=== PATIENT | male | born 1945 | race African-American/Black ===

== ENCOUNTER 2017-07-20 09:54 | Inpatient (IN) | payer OTHER ==
[2017-07-20 10:13] VITALS: BMI 25.4
--- NOTE | 2017-07-20 10:18 | PDOC ---
History of Present Illness - General Stated Complaint: ASTHMA Time Seen by Provider: 07/20/17 10:00 - History of Present Illness Initial Comments: 07/20/17 10:13 71yo man with PMH of asthma who p/w c/o sob. He states he has been having dyspnea on exertion with the cold weather. He's not currently using any medication for his asthma. Denies any cough, chest pain, palpitations, or chest tightness. No fever, chills, dysuria, or abdominal pain. He is currently living at shelters. Former tobacco smoker, quit 1 month ago; former EtOH and polysubstance abuse. 07/20/17 12:24 Past History - Past Medical History Allergies/Adverse Reactions: Allergies Allergy/AdvReac Type Severity Reaction Status Date / Time No Known Drug Allergies Allergy Verified 07/20/17 10:13 STAWBERRY AdvReac Uncoded 07/20/17 10:13 Home Medications: Ambulatory Orders Budesonide/Formeterol Fumarate [SYMBICORT 80/4.5mcg -] 1 inh PO BID 10/24/13 Tiotropium Saline [Spiriva] 1 inh PO DAILY 10/24/13 Acetaminophen [Tylenol .Regular Strength -] 650 mg PO QID PRN #60 tablet Albuterol Sulfate Inhaler - [Ventolin HFA Inhaler -] 2 inh IH Q4H PRN #1 inh Folic Acid 0.8 mg PO DAILY #30 tablet 10/28/13 Guaifenesin Dm [Robitussin Dm -] 10 ml PO Q6H PRN #1 cup 10/28/13 Lisinopril [Prinivil] 40 mg PO DAILY #30 tablet 10/28/13 Mag Hydrox/Al Hydrox/Simeth [Mylanta Oral Suspension -] 30 ml PO Q6H PRN #1 cup 10/28/13 Montelukast Na [Singulair -] 10 mg PO HS #30 tablet 10/28/13 Multivitamin [Animal Chews] 1 each PO DAILY #30 tab.chew 10/28/13 Nicotine Patch [Nicoderm Patch -] 14 mg TD DAILY #30 patch 10/28/13 Prednisone [Deltasone -] 40 mg PO DAILY #8 tablet 10/28/13 Thiamine HCl [Vitamin B1 -] 100 mg PO HS #30 tablet 10/28/13 Anemia: No Asthma: Yes (uses albuterol) Cancer: No Cardiac Disorders: No CVA: No COPD: No CHF: No Dementia: No Diabetes: No GI Disorders: No Disorders: No HTN: Yes (no meds presently.) Hypercholesterolemia: No Kidney Stones: No Liver Disease: No Seizures: No Thyroid Disease: No - Suicide/Smoking/Psychosocial Hx Smoking History: Current every day smoker Have you smoked in the past 12 months: Yes Number of Cigarettes Smoked Daily: 6 'Breaking Loose' booklet given: 10/24/13 (give on floor) Hx Alcohol Use: No Hx Substance Use Treatment: No *Physical Exam - Physical Exam General Appearance: Yes: Appropriately Dressed, Thin, Other (completing full sentences w/o dyspnea). No: Apparent Distress HEENT: positive: Normal ENT Inspection Neck: positive: Supple Respiratory/Chest: positive: Wheezing (expiratory wheezing). negative: Accessory Muscle Use Vascular Pulses: Dorsalis-Pedis (R): 2+, Doralis-Pedis (L): 2+ Gastrointestinal/Abdominal: positive: Flat, Soft. negative: Tender Extremity: positive: Normal Inspection, Swelling. negative: Pedal Edema, Calf Tenderness Neurologic: positive: Fully Oriented, Alert ED Treatment Course - LABORATORY CBC & Chemistry Diagram: 07/20/17 11:41 07/20/17 11:41 Medical Decision Making - Medical Decision Making 07/20/17 10:18 71yo man presenting with sob and physical exam notable for expiratory wheezing. Patient's vital signs are stable and he is satting at 94% on RA. Will do CXR PA/ Lat and basic labs. Will treat with 60mg Prednisone and duo nebs. 07/20/17 12:21 CXR revealed no focal consolidations or pleural effusion, which decreases my suspicion for PNA or infectious process. 07/20/17 14:15 Labs reassuring. No leukocytosis or electrolyte imbalance identified. Expiratory wheezes still noted on exam. Will order additional nebs and reassess. 07/20/17 15:07 Patient continues to have expiratory wheezing. Will order 2mg Magnesium and 3rd duo neb. Will contact Hospitalists to observe for asthma exacerbation. *DC/Admit/Observation/Transfer Diagnosis at time of Disposition: Asthma with acute exacerbation - Discharge Dispostion Condition at time of disposition: Stable Admit: Yes - Referrals - Patient Instructions Printed Discharge Instructions: DI for Asthma -- Adult - Post Discharge Activity
[2017-07-20] MEDS ORDERED: ALBUTEROL SO4 2.5/IPRATROPIUM 0.5 INH SOL 3 ML VIAL.NEB. NEB ONE ×2 (10:23→15:07)
[2017-07-20] MEDS ORDERED: predniSONE 20 MG TABLET (UD) PO ONE (10:25)
--- NOTE | 2017-07-20 10:26 | PDOC ---
Attending Attestation - Resident Resident Name: Lisa Liz - ED Attending Attestation I have performed the following: I have examined & evaluated the patient, The case was reviewed & discussed with the resident, I agree w/resident's findings & plan, Exceptions are as noted - HPI HPI: 07/20/17 10:22 71yo M hx PSA (etoh/cocaine), smoker, asthma p/w SOB for 2 weeks. PT reports sxs worse with cold weather. Has no asthma medicine. Denies CP, fevers, chills, cough. Reports this feels like his asthma. Pt lives in a long term and states he used to have a nebulizer machine, but no longer has it. Denies headache, weakness, abd pain, LE edema. - Physicial Exam PE: 07/20/17 10:25 GENERAL: Awake, alert, and fully oriented, in no acute distress HEAD: No signs of trauma EYES: PERRLA, EOMI, sclera anicteric, conjunctiva clear ENT: Auricles normal inspection, hearing grossly normal, nares patent, oropharynx clear without exudates. Moist mucosa NECK: Normal ROM, supple, no lymphadenopathy, JVD, or masses LUNGS: Breath sounds equal, clear to auscultation bilaterally. mild exp wheezing throughout, and no crackles HEART: Regular rate and rhythm, normal S1 and S2, no murmurs, rubs or gallops ABDOMEN: Soft, nontender, normoactive bowel sounds. No guarding, no rebound. No masses EXTREMITIES: Normal range of motion, no edema. No clubbing or cyanosis. No cords, erythema, or tenderness NEUROLOGICAL: Normal speech, cranial nerves intact, negative pronator drift, 5/ 5 strength in all 4 extremities, normal sensation to light touch in all 4 extremities, normal cerebellar exam, normal gait, normal reflexes and tone SKIN: Warm, Dry, normal turgor, no rashes or lesions noted. - Medical Decision Making 07/20/17 10:26 71-year-old male with a history of asthma presents with asthma exacerbation. Vitals are unremarkable. Exam with mild wheezing however patient's satting 100% on room air. Will treat with nebs and steroids and reassess. 07/20/17 13:27 Pt continues to have wheezing and feel SOB despite 2 rounds of nebs. Will admit for likely asthma/COPD exacerbation.
[2017-07-20] MEDS ORDERED: predniSONE 20 MG TABLET (UD) ONE (10:30)
[2017-07-20 11:52] LABS: BASO % 1.2 % (0-2.0); EOS % 3.6 % (0-4.5); HEMATOCRIT 41.5 % (35.4-49); HEMOGLOBIN 13.7 GM/dL (11.7-16.9); LYMPH % 17.3 % (8-40); MCH 27.4 pg (25.7-33.7); MEAN CELL VOLUME 83.1 fl (80-96); MEAN PLT VOLUME 8.7 fl (7.5-11.1); MONO % 16.7 % (3.8-10.2); NEUT % 61.2 % (42.8-82.8); PLATELET COUNT 213 K/MM3 (134-434); RDW 14.1 % (11.9-15.9); WHITE BLOOD COUNT 4.6 K/mm3 (4.0-10.0)
[2017-07-20 12:21] LABS: ALBUMIN 3.2 g/dl (3.4-5.0); ANION GAP 9 (8-16); BILIRUBIN,TOTAL 0.6 mg/dL (0.2-1.0); BLOOD UREA NITROGEN 17 mg/dL (7-18); CALCIUM 8.8 mg/dL (8.5-10.1); CHLORIDE 99 mmol/L (98-107); CO2 32 mmol/L (21-32); CREATININE 1.4 mg/dL (0.7-1.3); GLUCOSE,RANDOM 68 mg/dL (74-106); POTASSIUM 4.3 mmol/L (3.5-5.1); SGOT/AST 30 U/L (15-37); SGPT/ALT 24 U/L (12-78); SODIUM 140 mmol/L (136-145); TOT PROT 6.5 g/dl (6.4-8.2)
[2017-07-20 12:22] LABS: ALK PHOS 70 U/L (45-117)
[2017-07-20] MEDS ORDERED: ALBUTEROL SO4 0.5 % INH SOLN 2.5 MG/0.5 ML VIAL.NEB. NEB ONE (13:59)
[2017-07-20] MEDS ORDERED: ALBUTEROL SO4 0.083% IH SOL 2.5 MG/3 ML VIAL.NEB. NEB ONE (14:47)
[2017-07-20] MEDS ORDERED: MAGNESIUM SULF 50% (8.12 MEQ/2 ML-1 GM VIAL) IVPB ONE (15:06)
[2017-07-20] MEDS ORDERED: MAGNESIUM SULF 50% (8.12 MEQ/2 ML-1 GM VIAL) ONE (15:15)
--- NOTE | 2017-07-20 15:56 | HP ---
CHIEF COMPLAINT: PCP: HISTORY OF PRESENT ILLNESS: Patient is a 71 year old male with a significant past medical history of asthma since childhood, alcohol/cocaine abuse (denies current use) and cigarette smoker (quit 1 month ago). He presented to the ED with shortness of breath and wheezing. As per patient, he has been having dyspnea on exertion with the cold weather. He is on no medications for asthma currently. He denies any chest pain, palpitations or chest tightness. Denies any fever or chills. He admits to former ETOH abuse and polysubstance abuse but denies any current use. He also states that he is currently homeless and often sleeps in shelters or at his daughter's home. Daughters name is Ivonne and her phone no. is [phone] and patient granted permission to speak to her and give her an update on his status. ER course was notable for: (1) Prednisone 60mg and duonebs (2) Magnesium 2 grams (3) Chest xray: no focal consolidations or pleural effusion (4) expiratory wheezing after prednisone, duonebs and mag infusion (5) Creatinine 1.4 Recent Travel: denies PAST MEDICAL HISTORY: asthma since childhood, alcohol/cocaine abuse (denies current use) and cigarette smoker (quit 1 month ago) PAST SURGICAL HISTORY: Social History: Smoking: quit 1 month ago Alcohol: hx of etoh abuse, denies current use Drugs: hx of drug use 1 yr ago, denies current us Family History: Allergies No Known Drug Allergies Allergy (Verified 07/20/17 10:13) STAWBERRY Adverse Reaction (Uncoded 07/20/17 10:13) HOME MEDICATIONS: Home Medications Medication Instructions Recorded Budesonide/Formeterol Fumarate 1 inh PO BID 10/24/13 [SYMBICORT 80/4.5mcg -] Tiotropium Levan [Spiriva] 1 inh PO DAILY 10/24/13 Acetaminophen [Tylenol .Regular 650 mg PO QID PRN #60 tablet 10/28/13 Strength -] Albuterol Sulfate Inhaler - 2 inh IH Q4H PRN #1 inh 10/28/13 [Ventolin HFA Inhaler -] Folic Acid 0.8 mg PO DAILY #30 tablet 10/28/13 Guaifenesin Dm [Robitussin Dm -] 10 ml PO Q6H PRN #1 cup 10/28/13 Lisinopril [Prinivil] 40 mg PO DAILY #30 tablet 10/28/13 Mag Hydrox/Al Hydrox/Simeth 30 ml PO Q6H PRN #1 cup 10/28/13 [Mylanta Oral Suspension -] Montelukast Na [Singulair -] 10 mg PO HS #30 tablet 10/28/13 Multivitamin [Animal Chews] 1 each PO DAILY #30 tab.chew 10/28/13 Nicotine Patch [Nicoderm Patch -] 14 mg TD DAILY #30 patch 10/28/13 Prednisone [Deltasone -] 40 mg PO DAILY #8 tablet 10/28/13 Thiamine HCl [Vitamin B1 -] 100 mg PO HS #30 tablet 10/28/13 REVIEW OF SYSTEMS CONSTITUTIONAL: Absent: fever, chills, diaphoresis, generalized weakness, malaise, loss of appetite, weight change HEENT: Absent: rhinorrhea, nasal congestion, throat pain, throat swelling, difficulty swallowing, mouth swelling, ear pain, eye pain, visual changes CARDIOVASCULAR: Absent: chest pain, syncope, palpitations, irregular heart rate, lightheadedness , peripheral edema RESPIRATORY: Absent: hemoptysis GASTROINTESTINAL: Absent: abdominal pain, abdominal distension, nausea, vomiting, diarrhea, constipation, melena, hematochezia GENITOURINARY: Absent: dysuria, frequency, urgency, hesitancy, hematuria, flank pain, genital pain MUSCULOSKELETAL: Absent: myalgia, arthralgia, joint swelling, back pain, neck pain SKIN: Absent: rash, itching, pallor HEMATOLOGIC/IMMUNOLOGIC: Absent: easy bleeding, easy bruising, lymphadenopathy, frequent infections ENDOCRINE: Absent: unexplained weight gain, unexplained weight loss, heat intolerance, cold intolerance NEUROLOGIC: Absent: headache, focal weakness or paresthesias, dizziness, unsteady gait, seizure, mental status changes, bladder or bowel incontinence PSYCHIATRIC: Absent: anxiety, depression, suicidal or homicidal ideation, hallucinations. PHYSICAL EXAMINATION Vital Signs - 24 hr 07/20/17 07/20/17 10:00 14:59 Temperature 98.4 F 98.4 F Pulse Rate 88 Pulse Rate [ 88 Left Radial] Respiratory 24 22 Rate Blood Pressure 132/90 Blood Pressure 140/70 [Right Arm] O2 Sat by Pulse 100 100 Oximetry (%) GENERAL: Awake, alert, and fully oriented, in no acute distress. HEAD: Normal with no signs of trauma. EYES: Pupils equal, round and reactive to light, extraocular movements intact, sclera anicteric, conjunctiva clear. No lid lag. EARS, NOSE, THROAT: Ears normal, nares patent, oropharynx clear without exudates. Moist mucous membranes. NECK: Normal range of motion, supple without lymphadenopathy, JVD, or masses. LUNGS: Breath sounds equal, clear to auscultation bilaterally. No wheezes, and no crackles. No accessory muscle use. HEART: scattered expiratory wheezing throughout all lung [place], tolerating room air ABDOMEN: Soft, nontender, not distended, normoactive bowel sounds, no guarding, no rebound, no masses. No hepatomegaly or splenomegaly. MUSCULOSKELETAL: Normal range of motion at all joints. No bony deformities or tenderness. No CVA tenderness. UPPER EXTREMITIES: No peripheral edema. LOWER EXTREMITIES: No peripheral edema. NEUROLOGICAL: Normal speech. Normal gait. PSYCHIATRIC: Cooperative. Good eye contact. Appropriate mood and affect. SKIN: Warm, dry, normal turgor, no rashes or lesions noted, normal capillary refill. Laboratory Results - last 24 hr 07/20/17 07/20/17 11:41 11:41 WBC 4.6 D RBC 5.00 D Hgb 13.7 Hct 41.5 MCV 83.1 MCH 27.4 D MCHC 33.0 RDW 14.1 Plt Count 213 MPV 8.7 Neutrophils % 61.2 D Lymphocytes % 17.3 D Monocytes % 16.7 H D Eosinophils % 3.6 D Basophils % 1.2 D Sodium 140 Potassium 4.3 Chloride 99 Carbon Dioxide 32 Anion Gap 9 BUN 17 Creatinine 1.4 H Creat Clearance w eGFR 50.25 Random Glucose 68 L D Calcium 8.8 Total Bilirubin 0.6 D AST 30 D ALT 24 D Alkaline Phosphatase 70 Total Protein 6.5 Albumin 3.2 L ASSESSMENT/PLAN: Patient is a 71 year old male with a significant past medical history of asthma since childhood, alcohol/cocaine abuse (denies current use) and cigarette smoker (quit 1 month ago). He presented to the ED with shortness of breath and wheezing. As per patient, he has been having dyspnea on exertion with the cold weather. He is on no medications for asthma currently. He denies any chest pain, palpitations or chest tightness. Denies any fever or chills. He admits to former ETOH abuse and polysubstance abuse but denies any current use. He also states that he is currently homeless and often sleeps in shelters or at his daughter's home. Daughters name is Ivonne and her phone no. is [phone] and patient granted permission to speak to her and give her an update on his status. Pulmonary: Asthma exacerbation, acute Shortness of breath x 2 weeks Treated in ER with PO solumendrol, duonebs and still had wheezing Now under observation for continued wheezing, will start on solumedrol 40mg q8 and scheduled duonebs and assess in am. Convert to PO once cleared by pulmonary Has no asthma medications, lives in shelters, currently homeless Labs unremarkable Tolerating room air, supplement as needed Pulmonary consulted Renal: Mild ANGEL Hydrate with NS x 1 liter labs in a.m. F.E.N. Fluids: gentle hydration x 1 liter @ 50cc /hr Electrolytes: monitor in a.m. Nutrition: regular diet Prophylaxis: GI: Protonix DVT: ambulatory LOS < 48 hrs Disposition. observation, d/c in a.m. once breathing has improved and patient is no longer wheezing.
[2017-07-20] MEDS ORDERED: PANTOPRAZOLE 40 MG TABLET (FP) ONE (16:08)
[2017-07-20] MEDS: PANTOPRAZOLE 40 MG TABLET (FP) PO SCH (16:11)
[2017-07-20] MEDS ORDERED: SODIUM CHLORIDE 1,000 ML IV SCH (16:30)
[2017-07-20] MEDS ORDERED: FLU VACCINE QUAD 60 MCG/0.5 ML (MDV 17-18) IM ONE (18:01)
[2017-07-20] MEDS ORDERED: PNEUMOC 13-VAL CONJ-DIP CRM/PF 0.5 ML DISP.SYRIN IM ONE (18:01)
[2017-07-20] MEDS: methylPREDNISolone NA SUCC 40 MG/1 ML VIAL IVPUSH SCH (18:30)
[2017-07-20] MEDS: ALBUTEROL SO4 2.5/IPRATROPIUM 0.5 INH SOL 3 ML VIAL.NEB. NEB SCH ×2 (18:55→23:41)
[2017-07-21] MEDS: methylPREDNISolone NA SUCC 40 MG/1 ML VIAL IVPUSH SCH ×3 (01:33→18:51)
[2017-07-21] MEDS: ALBUTEROL SO4 2.5/IPRATROPIUM 0.5 INH SOL 3 ML VIAL.NEB. NEB SCH ×4 (06:12→23:41)
[2017-07-21] MEDS: PANTOPRAZOLE 40 MG TABLET (FP) PO SCH (09:02)
[2017-07-21 09:12] LABS: HEMATOCRIT 39.7 % (35.4-49); HEMOGLOBIN 13.4 GM/dL (11.7-16.9); MCH 27.7 pg (25.7-33.7); MCHC 33.8 g/dl (32.0-35.9); MEAN CELL VOLUME 81.9 fl (80-96); MEAN PLT VOLUME 8.8 fl (7.5-11.1); PLATELET COUNT 225 K/MM3 (134-434); RBC 4.85 M/mm3 (4.00-5.60); RDW 14.6 % (11.9-15.9); WHITE BLOOD COUNT 5.5 K/mm3 (4.0-10.0)
[2017-07-21 09:30] LABS: CHLORIDE 102 mmol/L (98-107); POTASSIUM 4.7 mmol/L (3.5-5.1); SODIUM 137 mmol/L (136-145)
[2017-07-21 09:38] LABS: ALBUMIN 3.3 g/dl (3.4-5.0); ALK PHOS 70 U/L (45-117); ANION GAP 10 (8-16); BILIRUBIN,TOTAL 0.4 mg/dL (0.2-1.0); BLOOD UREA NITROGEN 17 mg/dL (7-18); CALCIUM 9.3 mg/dL (8.5-10.1); CO2 25 mmol/L (21-32); CREATININE 1.3 mg/dL (0.7-1.3); GLUCOSE,RANDOM 132 mg/dL (74-106); MAGNESIUM 2.6 mg/dL (1.8-2.4); SGOT/AST 23 U/L (15-37); SGPT/ALT 24 U/L (12-78); TOT PROT 6.5 g/dl (6.4-8.2)
[2017-07-21] MEDS ORDERED: ALBUTEROL SO4 2.5/IPRATROPIUM 0.5 INH SOL 3 ML VIAL.NEB. NEB ONE (10:30)
[2017-07-21] MEDS ORDERED: FLUTICASONE/SALMETEROL 100 MCG/50 MCG DISKUS IH SCH (11:00)
--- NOTE | 2017-07-21 11:58 | CON.PULM ---
Consult Consult Specialty:: PULMONARY Referred by:: MAX Reason for Consultation:: SOB/WHEEZE/ASTHMA - History of Present Illness Chief Complaint: COUGH/SOB/WHEEZE/ History of Present Illness: 71yo man with PMH of asthma who p/w c/o sob. He states he has been having dyspnea on exertion with the cold weather. He's not currently using any medication for his asthma. Denies any cough, chest pain, palpitations, or chest tightness. No fever, chills, dysuria, or abdominal pain. He is currently living at shelters. Former tobacco smoker, quit 1 month ago; former EtOH and polysubstance abuse. - History Source History Provided By: Patient, Medical Record Limitations to Obtaining History: No Limitations - Past Medical History TOBACCO WEIGHER: No: Alzheimer's Cardio/Vascular: No: AFIB Pulmonary: Yes: Asthma, COPD. No: O2 Dependent Gastrointestinal: No: Ascites Renal/: No: Renal Failure Heme/Onc: No: Anemia Psych: Yes: Addictions (alcohol) Endocrine: No: Diabetes Mellitus - Past Surgical History Past Surgical History: Yes: Hernia Repair - Alcohol/Substance Use Hx Alcohol Use: No History of Substance Use: reports: Cocaine, Marijuana - Smoking History Smoking history: Former smoker Have you smoked in the past 12 months: Yes Aproximately how many cigarettes per day: 6 If you are a former smoker, when did you quit?: 2 months ago - Social History Usual Living Arrangement: Alone ADL: Independent Place of : [facility] History of Recent Travel: No Home Medications - Allergies Allergies/Adverse Reactions: Allergies Allergy/AdvReac Type Severity Reaction Status Date / Time No Known Drug Allergies Allergy Verified 07/20/17 10:13 STAWBERRY AdvReac Uncoded 07/20/17 10:13 - Home Medications Home Medications: Ambulatory Orders Budesonide/Formeterol Fumarate [SYMBICORT 80/4.5mcg -] 1 inh PO BID 10/24/13 Tiotropium [place] [Spiriva] 1 inh PO DAILY 10/24/13 Acetaminophen [Tylenol .Regular Strength -] 650 mg PO QID PRN #60 tablet Albuterol Sulfate Inhaler - [Ventolin HFA Inhaler -] 2 inh IH Q4H PRN #1 inh Folic Acid 0.8 mg PO DAILY #30 tablet 10/28/13 Guaifenesin Dm [Robitussin Dm -] 10 ml PO Q6H PRN #1 cup 10/28/13 Lisinopril [Prinivil] 40 mg PO DAILY #30 tablet 10/28/13 Mag Hydrox/Al Hydrox/Simeth [Mylanta Oral Suspension -] 30 ml PO Q6H PRN #1 cup 10/28/13 Montelukast Na [Singulair -] 10 mg PO HS #30 tablet 10/28/13 Multivitamin [Animal Chews] 1 each PO DAILY #30 tab.chew 10/28/13 Nicotine Patch [Nicoderm Patch -] 14 mg TD DAILY #30 patch 10/28/13 Prednisone [Deltasone -] 40 mg PO DAILY #8 tablet 10/28/13 Thiamine HCl [Vitamin B1 -] 100 mg PO HS #30 tablet 10/28/13 Family Disease History - Family Disease History Family Disease History: Other: Brother ( of overdose) Review of Systems - Review of Systems Constitutional: reports: Fever Eyes: denies: Blurred Vision HENT: denies: Difficult Swallowing Neck: denies: Decreased ROM Cardiovascular: reports: Shortness of Breath. denies: Chest Pain Respiratory: reports: Cough, Exercise Intolerance, SOB on Exertion, Wheezing. denies: Hemoptysis, Orthopnea Gastrointestinal: denies: Abdominal Pain Genitourinary: denies: Burning Breasts: reports: No Symptoms Reported Musculoskeletal: reports: No Symptoms Integumentary: reports: No Symptoms Neurological: reports: No Symptoms Endocrine: reports: No Symptoms Physical Exam Vital Sings: Vital Signs Temperature 97.7 F 07/21/17 09:00 Pulse Rate 91 H 07/21/17 09:00 Respiratory Rate 18 07/21/17 09:00 Blood Pressure 101/69 07/21/17 09:00 O2 Sat by Pulse Oximetry (%) 95 07/21/17 06:00 Eyes: Yes: EOM Intact HENT: Yes: Normocephalic Neck: Yes: Trachea Midline Cardiovascular: Yes: Regular Rate and Rhythm Respiratory: Yes: Wheezes Gastrointestinal: Yes: Normal Bowel Sounds Extremities: Yes: WNL Labs: CBC, BMP 07/21/17 07:00 07/21/17 07:00 Imaging - Results Chest X-ray: Report Reviewed, Image Reviewed Problem List - Problems (1) Asthma with acute exacerbation Code(s): J45.901 - UNSPECIFIED ASTHMA WITH (ACUTE) EXACERBATION (2) COPD (chronic obstructive pulmonary disease) Code(s): J44.9 - CHRONIC OBSTRUCTIVE PULMONARY DISEASE, UNSPECIFIED (3) Chronic alcoholism Code(s): F10.20 - ALCOHOL DEPENDENCE, UNCOMPLICATED (4) Cocaine dependence Code(s): F14.20 - COCAINE DEPENDENCE, UNCOMPLICATED Assessment/Plan A/E B.ASTHMA LIKELY DUE TO ACUTE BRONCHITIS SUGGEST INFLU A/B SCREEN SPUTUM CULTURE/GRAM STAIN EVER/LABA/LAMA/ICS/SYSTEMIC STEROIDS/ANTIBIOTICS O2 PRN/DAILY PEAK FLOW Bean PINEDA MD
[2017-07-21] MEDS ORDERED: BUDESONIDE/FORMETEROL FUMARATE 80/4.5 mcg INHALER IH SCH (12:30)
--- NOTE | 2017-07-21 13:15 | RAPID ---
Physical Examination Vital Signs: Vital Signs Temperature 97.7 F 07/21/17 09:00 Pulse Rate 91 H 07/21/17 09:00 Respiratory Rate 18 07/21/17 09:00 Blood Pressure 101/69 07/21/17 09:00 O2 Sat by Pulse Oximetry (%) 95 07/21/17 06:00 Constitutional: Yes: Anxious Eyes: Yes: WNL HENT: Yes: WNL Neck: Yes: WNL Respiratory: Yes: Accessory Muscle Use Labs: CBC, BMP 07/21/17 07:00 07/21/17 07:00 Rapid Response - Rapid Response Assessment: ASSESSMENT/PLAN: Patient is a 71 year old male with a significant past medical history of asthma since childhood, alcohol/cocaine abuse (denies current use) and cigarette smoker (quit 1 month ago). He presented to the ED with shortness of breath and wheezing. As per patient, he has been having dyspnea on exertion with the cold weather. He is on no medications for asthma currently. He denies any chest pain, palpitations or chest tightness. Denies any fever or chills. He admits to former ETOH abuse and polysubstance abuse but denies any current use. He also states that he is currently homeless and often sleeps in shelters or at his daughter's home. Daughters name is Ivonne and her phone no. is [phone] and patient granted permission to speak to her and give her an update on his status. Pulmonary: Asthma exacerbation, acute Shortness of breath x 2 weeks Treated in ER with PO Prednisone, duonebs and still had wheezing, was also given magnesium iv Today had a rapid response called after patient attempted to ambulate to the bathroom, as per primary RN, patient became short of breath and was c/o of "chest tightness". His oxygen saturations dropped down to the 70s on 2 liters NC, once he was sitting, his oxygen levels increased back to the high 90s. will order repeat cbc, cmp, troponins trend, chest ct, extra dose of solumedrol 40mg x 1, duonebs are scheduled Started on Levaquin 500mg iv x 1 now then Levaquin 250mg daily Monitor respiratory status closely Pulmonary consulted and following Renal: Mild ANGEL, resolved stop ivf Disposition. full code.
[2017-07-21 13:58] LABS: HEMOGLOBIN 12.5 GM/dL (11.7-16.9)
[2017-07-21 14:11] LABS: BASO % 0.1 % (0-2.0); HEMATOCRIT 37.2 % (35.4-49); LYMPH % 4.3 % (8-40); MCH 27.9 pg (25.7-33.7); MCHC 33.7 g/dl (32.0-35.9); MEAN CELL VOLUME 82.7 fl (80-96); MEAN PLT VOLUME 8.8 fl (7.5-11.1); MONO % 4.9 % (3.8-10.2); NEUT % 90.7 % (42.8-82.8); PLATELET COUNT 202 K/MM3 (134-434); RBC 4.49 M/mm3 (4.00-5.60); RDW 14.3 % (11.9-15.9); WHITE BLOOD COUNT 8.8 K/mm3 (4.0-10.0)
[2017-07-21 14:15] LABS: ANION GAP 11 (8-16); BILIRUBIN,TOTAL 0.3 mg/dL (0.2-1.0); BLOOD UREA NITROGEN 17 mg/dL (7-18); CALCIUM 8.5 mg/dL (8.5-10.1); CHLORIDE 102 mmol/L (98-107); CO2 25 mmol/L (21-32); CREATININE 1.4 mg/dL (0.7-1.3); GLUCOSE,RANDOM 201 mg/dL (74-106); MAGNESIUM 2.5 mg/dL (1.8-2.4); SGOT/AST 20 U/L (15-37); SGPT/ALT 22 U/L (12-78); SODIUM 138 mmol/L (136-145)
[2017-07-21 14:16] LABS: ALK PHOS 63 U/L (45-117)
[2017-07-21] MEDS ORDERED: methylPREDNISolone NA SUCC 40 MG/1 ML VIAL IVPUSH ONE (14:30)
[2017-07-21] MEDS ORDERED: ALBUTEROL SO4 2.5/IPRATROPIUM 0.5 INH SOL 3 ML VIAL.NEB. NEB SCH (15:15)
[2017-07-21] MEDS ORDERED: PT OWN MED DRAWER 7, Y5N ONE (22:12)
[2017-07-21] MEDS: HEPARIN NA (PORCINE) 5,000 UNITS/ML 1ML VIAL SQ SCH (22:17)
[2017-07-21] MEDS: BUDESONIDE/FORMETEROL FUMARATE 80/4.5 mcg INHALER IH SCH (22:53)
[2017-07-22] MEDS: methylPREDNISolone NA SUCC 40 MG/1 ML VIAL IVPUSH SCH ×3 (02:26→18:58)
[2017-07-22] MEDS: ALBUTEROL SO4 2.5/IPRATROPIUM 0.5 INH SOL 3 ML VIAL.NEB. NEB SCH ×4 (06:35→23:32)
[2017-07-22 08:40] LABS: BASO % 0.2 % (0-2.0); HEMATOCRIT 38.8 % (35.4-49); HEMOGLOBIN 12.5 GM/dL (11.7-16.9); MCHC 32.3 g/dl (32.0-35.9); MEAN CELL VOLUME 83.7 fl (80-96); MEAN PLT VOLUME 8.7 fl (7.5-11.1); NEUT % 94.8 % (42.8-82.8); PLATELET COUNT 197 K/MM3 (134-434); RBC 4.64 M/mm3 (4.00-5.60); RDW 14.2 % (11.9-15.9); WHITE BLOOD COUNT 12.1 K/mm3 (4.0-10.0)
[2017-07-22] MEDS ORDERED: PT OWN MED DRAWER 7, Y5N ONE ×2 (08:57→21:03)
[2017-07-22] MEDS: PANTOPRAZOLE 40 MG TABLET (FP) PO SCH (09:02)
[2017-07-22] MEDS: HEPARIN NA (PORCINE) 5,000 UNITS/ML 1ML VIAL SQ SCH ×2 (09:03→21:07)
[2017-07-22] MEDS: BUDESONIDE/FORMETEROL FUMARATE 80/4.5 mcg INHALER IH SCH ×2 (09:04→21:08)
[2017-07-22 09:14] LABS: ANION GAP 9 (8-16); BLOOD UREA NITROGEN 16 mg/dL (7-18); CALCIUM 8.6 mg/dL (8.5-10.1); CHLORIDE 102 mmol/L (98-107); CO2 28 mmol/L (21-32); GLUCOSE,RANDOM 166 mg/dL (74-106); MAGNESIUM 2.6 mg/dL (1.8-2.4); POTASSIUM 4.6 mmol/L (3.5-5.1); SODIUM 139 mmol/L (136-145)
[2017-07-22 09:16] LABS: ALK PHOS 62 U/L (45-117); BILIRUBIN,TOTAL 0.3 mg/dL (0.2-1.0); CREATININE 1.4 mg/dL (0.7-1.3); SGOT/AST 18 U/L (15-37); SGPT/ALT 20 U/L (12-78); TOT PROT 6.2 g/dl (6.4-8.2)
--- NOTE | 2017-07-22 10:03 | PN ---
Physical Exam: SUBJECTIVE: Patient seen and examined at the bedside. He denies any chest pain or shortness of breath. Was a rapid response yesterday afternoon, no overnight events OBJECTIVE: For chest CT now hmga1c 6.7 with hyperglycemic, will start novolog ss Mild leukocytosis, no fevers, on Levaquin Vital Signs Period Temp Pulse Resp BP Sys/Vaz Pulse Ox Last 24 Hr 97.4 F-97.8 F 85-100 20-20 113-132/74-89 98 GENERAL: Awake, alert, and fully oriented, in no acute distress. HEAD: Normal with no signs of trauma. EYES: Pupils equal, round and reactive to light, extraocular movements intact, sclera anicteric, conjunctiva clear. No lid lag. EARS, NOSE, THROAT: Ears normal, nares patent, oropharynx clear without exudates. Moist mucous membranes. NECK: Normal range of motion, supple without lymphadenopathy, JVD, or masses. LUNGS: Breath sounds equal, clear to auscultation bilaterally. No wheezes, and no crackles. No accessory muscle use. HEART: scattered expiratory wheezing throughout all lung [place], tolerating room air ABDOMEN: Soft, nontender, not distended, normoactive bowel sounds, no guarding, no rebound, no masses. No hepatomegaly or splenomegaly. MUSCULOSKELETAL: Normal range of motion at all joints. No bony deformities or tenderness. No CVA tenderness. UPPER EXTREMITIES: No peripheral edema. LOWER EXTREMITIES: No peripheral edema. NEUROLOGICAL: Normal speech. Normal gait. PSYCHIATRIC: Cooperative. Good eye contact. Appropriate mood and affect. SKIN: Warm, dry, normal turgor, no rashes or lesions noted, normal capillary refill. Laboratory Results - last 24 hr 07/21/17 07/21/17 07/21/17 13:22 13:40 13:40 WBC 8.8 D RBC 4.49 Hgb 12.5 Hct 37.2 MCV 82.7 MCH 27.9 MCHC 33.7 RDW 14.3 Plt Count 202 MPV 8.8 Neutrophils % 90.7 H D Lymphocytes % 4.3 L D Monocytes % 4.9 Eosinophils % 0.0 D Basophils % 0.1 Sodium 138 Potassium 5.0 Chloride 102 Carbon Dioxide 25 Anion Gap 11 BUN 17 Creatinine 1.4 H Creat Clearance w eGFR 50.25 Random Glucose 201 H D Hemoglobin A1c % Calcium 8.5 Magnesium 2.5 H Total Bilirubin 0.3 D AST 20 ALT 22 Alkaline Phosphatase 63 Troponin I < 0.02 Total Protein 6.0 L Albumin 3.0 L 07/21/17 07/22/17 07/22/17 19:58 08:30 08:30 WBC 12.1 H D RBC 4.64 Hgb 12.5 Hct 38.8 MCV 83.7 MCH 27.0 MCHC 32.3 RDW 14.2 Plt Count 197 MPV 8.7 Neutrophils % 94.8 H Lymphocytes % 3.0 L D Monocytes % 2.0 L Eosinophils % 0.0 Basophils % 0.2 Sodium 139 Potassium 4.6 Chloride 102 Carbon Dioxide 28 Anion Gap 9 BUN 16 Creatinine 1.4 H Creat Clearance w eGFR 50.25 Random Glucose 166 H Hemoglobin A1c % Calcium 8.6 Magnesium 2.6 H Total Bilirubin 0.3 AST 18 ALT 20 Alkaline Phosphatase 62 Troponin I < 0.02 Total Protein 6.2 L Albumin 3.0 L 07/22/17 08:30 WBC RBC Hgb Hct MCV MCH MCHC RDW Plt Count MPV Neutrophils % Lymphocytes % Monocytes % Eosinophils % Basophils % Sodium Potassium Chloride Carbon Dioxide Anion Gap BUN Creatinine Creat Clearance w eGFR Random Glucose Hemoglobin A1c % 6.7 H Calcium Magnesium Total Bilirubin AST ALT Alkaline Phosphatase Troponin I Total Protein Albumin Active Medications Generic Name Dose Route Start Last Admin Trade Name Freq PRN Reason Stop Dose Admin Albuterol/Ipratropium 1 amp 07/21/17 15:23 07/22/17 06:35 Duoneb - NEB 1 amp QIDR ZULEIKA Administration Budesonide/Formoterol Fumarate 1 puff 07/21/17 22:00 07/22/17 09:04 Symbicort 80/4.5mcg - IH 1 puff BID ZULEIKA Administration Heparin Sodium (Porcine) 5,000 unit 07/21/17 22:00 07/22/17 09:03 Heparin - SQ 5,000 unit BID ZULEIKA Administration Levofloxacin 250 mg in 50 mls @ 50 mls/hr 07/22/17 10:00 07/22/17 09:01 Levaquin 250 Mg Premixed Ivpb - IVPB 50 mls/hr DAILY ZULEIKA Administration Methylprednisolone Sodium Succinate 60 mg 07/21/17 13:43 07/22/17 09:18 Solu-Medrol - IVPUSH 60 mg Q8H-IV ZULEIKA Administration Pantoprazole Sodium 40 mg 07/20/17 16:00 07/22/17 09:02 Protonix - PO 40 mg DAILY ZULEIKA Administration ASSESSMENT/PLAN: Patient is a 71 year old male with a significant past medical history of asthma since childhood, alcohol/cocaine abuse (denies current use) and cigarette smoker (quit 1 month ago). He presented to the ED with shortness of breath and wheezing. As per patient, he has been having dyspnea on exertion with the cold weather. He is on no medications for asthma currently. He denies any chest pain, palpitations or chest tightness. Denies any fever or chills. He admits to former ETOH abuse and polysubstance abuse but denies any current use. He also states that he is currently homeless and often sleeps in shelters or at his daughter's home. Daughters name is Ivonne and her phone no. is [phone] and patient granted permission to speak to her and give her an update on his status. Yesterday a rapid response was called after patient had an episode of shortness of breath and at that time his Soludmedrol was increased. His hospitalization satu Pulmonary: Asthma exacerbation, acute Shortness of breath x 2 weeks Initially treated in ER with PO solumendrol, duonebs and still had wheezing Solumedrol increased to 60mg push q 8 yesterday for increased wheezing Labs stable, vitals stable On 2 to 4 liters of nasal cannula supplement as needed Pulmonary consulted and following On Levaquin 250 mg IV daily Monitor respiratory status Hematology Leukocytosis, mild No fevers,vitals stable Can be due to IV steriods Renal: Mild ANGEL @ 1.4 Encourage PO intake labs in a.m. F.E.N. Fluids: Tolerating PO Electrolytes: monitor in a.m. Nutrition: regular diet Prophylaxis: GI: Protonix DVT: heparin BID Disposition.
[2017-07-22] MEDS: INSULIN SLIDING SCALE (NOVOLOG) 1 VIAL SQ SCH ×3 (11:51→21:07)
--- NOTE | 2017-07-22 12:58 | PN ---
Progress Note (short form) - Note Progress Note: Still with some RICARDO. Cough is essentially dry. No hemoptysis. CT: Mild emphysema / bronchiectasis / no masses,nodules, or infiltrates Intake & Output 07/19/17 07/20/17 07/21/17 07/22/17 23:59 23:59 23:59 23:59 Intake Total 600 1850 Output Total 2 Balance 598 1850 Weight 130 lb Last Vital Signs Temp Pulse Resp BP Pulse Ox 97.8 F 100 H 20 115/74 98 07/22/17 05:34 07/22/17 05:34 07/22/17 05:34 07/22/17 05:34 07/21/17 22:00 Active Medications Albuterol/Ipratropium (Duoneb -) 1 amp NEB QIDR [facility] Last Admin: 07/22/17 10:45 Dose: 1 amp Budesonide/Formoterol Fumarate (Symbicort 80/4.5mcg -) 1 puff IH BID [facility] Last Admin: 07/22/17 09:04 Dose: 1 puff Heparin Sodium (Porcine) (Heparin -) 5,000 unit SQ BID [facility] Last Admin: 07/22/17 09:03 Dose: 5,000 unit Levofloxacin (Levaquin 250 Mg Premixed Ivpb -) 250 mg in 50 mls @ 50 mls/hr IVPB DAILY [facility] Last Admin: 07/22/17 09:01 Dose: 50 mls/hr Insulin Aspart (Novolog Vial Sliding Scale -) 1 vial SQ ACHS [facility] PRN Reason: Protocol Last Admin: 07/22/17 11:51 Dose: 2 units Methylprednisolone Sodium Succinate (Solu-Medrol -) 60 mg IVPUSH Q8H-IV ZULEIKA Last Admin: 07/22/17 09:18 Dose: 60 mg Pantoprazole Sodium (Protonix -) 40 mg PO DAILY [facility] Last Admin: 07/22/17 09:02 Dose: 40 mg Eyes: Yes: EOM Intact HENT: Yes: Normocephalic Neck: Yes: Trachea Midline Cardiovascular: Yes: Regular Rate and Rhythm Respiratory: Yes: Mild scattered expiratory Wheeze Gastrointestinal: Yes: Normal Bowel Sounds Extremities: Yes: WNL Labs: Laboratory Results - last 24 hr 07/21/17 07/21/17 07/21/17 13:22 13:40 13:40 WBC 8.8 D RBC 4.49 Hgb 12.5 Hct 37.2 MCV 82.7 MCH 27.9 MCHC 33.7 RDW 14.3 Plt Count 202 MPV 8.8 Neutrophils % 90.7 H D Lymphocytes % 4.3 L D Monocytes % 4.9 Eosinophils % 0.0 D Basophils % 0.1 Sodium 138 Potassium 5.0 Chloride 102 Carbon Dioxide 25 Anion Gap 11 BUN 17 Creatinine 1.4 H Creat Clearance w eGFR 50.25 POC Glucometer Random Glucose 201 H D Hemoglobin A1c % Calcium 8.5 Magnesium 2.5 H Total Bilirubin 0.3 D AST 20 ALT 22 Alkaline Phosphatase 63 Troponin I < 0.02 Total Protein 6.0 L Albumin 3.0 L 07/21/17 07/22/17 07/22/17 19:58 08:30 08:30 WBC 12.1 H D RBC 4.64 Hgb 12.5 Hct 38.8 MCV 83.7 MCH 27.0 MCHC 32.3 RDW 14.2 Plt Count 197 MPV 8.7 Neutrophils % 94.8 H Lymphocytes % 3.0 L D Monocytes % 2.0 L Eosinophils % 0.0 Basophils % 0.2 Sodium 139 Potassium 4.6 Chloride 102 Carbon Dioxide 28 Anion Gap 9 BUN 16 Creatinine 1.4 H Creat Clearance w eGFR 50.25 POC Glucometer Random Glucose 166 H Hemoglobin A1c % Calcium 8.6 Magnesium 2.6 H Total Bilirubin 0.3 AST 18 ALT 20 Alkaline Phosphatase 62 Troponin I < 0.02 Total Protein 6.2 L Albumin 3.0 L 07/22/17 07/22/17 08:30 11:50 WBC RBC Hgb Hct MCV MCH MCHC RDW Plt Count MPV Neutrophils % Lymphocytes % Monocytes % Eosinophils % Basophils % Sodium Potassium Chloride Carbon Dioxide Anion Gap BUN Creatinine Creat Clearance w eGFR POC Glucometer 171 Random Glucose Hemoglobin A1c % 6.7 H Calcium Magnesium Total Bilirubin AST ALT Alkaline Phosphatase Troponin I Total Protein Albumin Problem List - Problems (1) Asthma with acute exacerbation Code(s): J45.901 - UNSPECIFIED ASTHMA WITH (ACUTE) EXACERBATION (2) COPD (chronic obstructive pulmonary disease) Code(s): J44.9 - CHRONIC OBSTRUCTIVE PULMONARY DISEASE, UNSPECIFIED (3) Chronic alcoholism Code(s): F10.20 - ALCOHOL DEPENDENCE, UNCOMPLICATED (4) Cocaine dependence Code(s): F14.20 - COCAINE DEPENDENCE, UNCOMPLICATED Assessment/Plan ACUTE BRONCHITIS PLAN: EVER/LABA/LAMA/ICS SYSTEMIC STEROIDS NOTED ANTIBIOTICS O2 PRN DAILY PEAK FLOW DR HAN
[2017-07-22] MEDS: OSELTAMIVIR PHOSPHATE 30 MG CAPSULE PO SCH (21:43)
[2017-07-23] MEDS: methylPREDNISolone NA SUCC 40 MG/1 ML VIAL IVPUSH SCH ×2 (01:24→10:04)
--- NOTE | 2017-07-23 01:33 | EKG ---
Test Reason : Blood Pressure : / mmHG Vent. Rate : 090 BPM Atrial Rate : 090 BPM P-R Int : 128 ms QRS Dur : 082 ms QT Int : 332 ms P-R-T Axes : 086 068 055 degrees QTc Int : 406 ms NORMAL SINUS RHYTHM NORMAL ECG WHEN COMPARED WITH ECG OF 27-OCT-2013 20:02, T WAVE VARIATION Confirmed by MALLY GAN MD ([id number]) on 07/23/2017 1:33:20 AM Referred By: Lyric GALAN Confirmed By:MALLY GAN MD
[2017-07-23] MEDS ORDERED: ALBUTEROL SO4 0.083% IH SOL 2.5 MG/3 ML VIAL.NEB. NEB PRN (03:56)
[2017-07-23] MEDS: ALBUTEROL SO4 2.5/IPRATROPIUM 0.5 INH SOL 3 ML VIAL.NEB. NEB SCH ×4 (05:57→23:13)
[2017-07-23] MEDS: INSULIN SLIDING SCALE (NOVOLOG) 1 VIAL SQ SCH ×4 (06:30→21:37)
[2017-07-23 07:25] LABS: BASO % 0.2 % (0-2.0); HEMATOCRIT 41.8 % (35.4-49); HEMOGLOBIN 13.5 GM/dL (11.7-16.9); MCH 27.2 pg (25.7-33.7); MCHC 32.4 g/dl (32.0-35.9); MEAN CELL VOLUME 84.1 fl (80-96); MEAN PLT VOLUME 8.9 fl (7.5-11.1); MONO % 3.2 % (3.8-10.2); NEUT % 92.6 % (42.8-82.8); PLATELET COUNT 229 K/MM3 (134-434); RBC 4.97 M/mm3 (4.00-5.60); RDW 14.4 % (11.9-15.9); WHITE BLOOD COUNT 13.8 K/mm3 (4.0-10.0)
[2017-07-23 07:32] LABS: ANION GAP 10 (8-16); BLOOD UREA NITROGEN 22 mg/dL (7-18); CHLORIDE 100 mmol/L (98-107); CO2 29 mmol/L (21-32); GLUCOSE,RANDOM 115 mg/dL (74-106); POTASSIUM 5.1 mmol/L (3.5-5.1); SODIUM 139 mmol/L (136-145)
[2017-07-23 07:38] LABS: ALBUMIN 3.3 g/dl (3.4-5.0); ALK PHOS 68 U/L (45-117); BILIRUBIN,TOTAL 0.4 mg/dL (0.2-1.0); CALCIUM 9.1 mg/dL (8.5-10.1); CREATININE 1.6 mg/dL (0.7-1.3); SGOT/AST 22 U/L (15-37); SGPT/ALT 25 U/L (12-78); TOT PROT 6.6 g/dl (6.4-8.2)
[2017-07-23] MEDS ORDERED: SODIUM CHLORIDE 1,000 ML IV SCH ×2 (09:00→15:47)
[2017-07-23] MEDS ORDERED: ASPIRIN COATED 81 MG TABLET.EC PO ONE (10:00)
--- NOTE | 2017-07-23 10:00 | PN ---
Physical Exam: SUBJECTIVE: Patient seen and examined at the bedside. shortness at breath at rest observed but patient states he feels fine. Heart rate 145 auscultated OBJECTIVE: Lungs more diminished bilaterally, wheezing anteriorly On 4 liters of oxygen @ 98% Chest xray pending, EKG shows afib with rvr 152, anterior infarct cannot be excluded + flu, started on Tamiflu overnight Vital Signs Period Temp Pulse Resp BP Sys/Vaz Pulse Ox Last 24 Hr 97.9 F-98.6 F 90-120 20-23 102-130/72-80 97 GENERAL: The patient is awake, alert, and fully oriented, in mild respiratory distress HEAD: Normal with no signs of trauma. EYES: PERRL, extraocular movements intact, sclera anicteric, conjunctiva clear. No ptosis. ENT: Ears normal, nares patent, oropharynx clear without exudates, moist mucous membranes. NECK: Trachea midline, full range of motion, supple. LUNGS: Diminished lungs posteriorly, anterior lung sounds with wheezing HEART: Regular rate and rhythm, S1, S2 without murmur, rub or gallop. ABDOMEN: Soft, nontender, nondistended, normoactive bowel sounds, no guarding, no rebound, no hepatosplenomegaly, no masses. EXTREMITIES: no edema. NEUROLOGICAL: Normal speech, gait not observed. PSYCH: Normal mood, normal affect. SKIN: Warm, dry, normal turgor, no rashes or lesions noted Laboratory Results - last 24 hr 07/22/17 07/22/17 07/22/17 11:50 16:46 21:07 WBC RBC Hgb Hct MCV MCH MCHC RDW Plt Count MPV Neutrophils % Lymphocytes % Monocytes % Eosinophils % Basophils % Sodium Potassium Chloride Carbon Dioxide Anion Gap BUN Creatinine Creat Clearance w eGFR POC Glucometer 171 112 144 Random Glucose Calcium Total Bilirubin AST ALT Alkaline Phosphatase Total Protein Albumin 07/23/17 07/23/17 07/23/17 06:25 06:25 06:26 WBC 13.8 H RBC 4.97 Hgb 13.5 Hct 41.8 MCV 84.1 MCH 27.2 MCHC 32.4 RDW 14.4 Plt Count 229 MPV 8.9 Neutrophils % 92.6 H Lymphocytes % 4.0 L D Monocytes % 3.2 L Eosinophils % 0.0 Basophils % 0.2 Sodium 139 Potassium 5.1 Chloride 100 Carbon Dioxide 29 Anion Gap 10 BUN 22 H D Creatinine 1.6 H Creat Clearance w eGFR 43.07 POC Glucometer 129 Random Glucose 115 H D Calcium 9.1 Total Bilirubin 0.4 D AST 22 D ALT 25 D Alkaline Phosphatase 68 Total Protein 6.6 Albumin 3.3 L Active Medications Generic Name Dose Route Start Last Admin Trade Name Freq PRN Reason Stop Dose Admin Albuterol Sulfate 1 amp 07/23/17 03:56 07/23/17 04:08 Ventolin 0.083% Nebulizer Soln - NEB 1 amp Q4H PRN Administration SHORT OF BREATH/WHEEZING Albuterol/Ipratropium 1 amp 07/21/17 15:23 07/23/17 05:57 Duoneb - NEB Not Given QIDR ZULEIKA Budesonide/Formoterol Fumarate 1 puff 07/21/17 22:00 07/22/17 21:08 Symbicort 80/4.5mcg - IH 1 puff BID ZULEIKA Administration Heparin Sodium (Porcine) 5,000 unit 07/21/17 22:00 07/22/17 21:07 Heparin - SQ 5,000 unit BID ZULEIKA Administration Levofloxacin 250 mg in 50 mls @ 50 mls/hr 07/22/17 10:00 07/22/17 09:01 Levaquin 250 Mg Premixed Ivpb - IVPB 50 mls/hr DAILY ZULEIKA Administration Sodium Chloride 1,000 mls @ 50 mls/hr 07/23/17 09:00 Normal Saline - IV 07/24/17 08:48 ASDIR ZULEIKA Insulin Aspart 1 vial 07/22/17 11:00 07/23/17 06:30 Novolog Vial Sliding Scale - SQ Not Given ACHS [facility] Protocol Methylprednisolone Sodium Succinate 60 mg 07/21/17 13:43 07/23/17 01:24 Solu-Medrol - IVPUSH 60 mg Q8H-IV ZULEIKA Administration Oseltamivir Phosphate 30 mg 07/22/17 22:00 07/22/17 21:43 Tamiflu - PO 07/27/17 21:59 30 mg BID ZULEIKA Administration Pantoprazole Sodium 40 mg 07/20/17 16:00 07/22/17 09:02 Protonix - PO 40 mg DAILY ZULEIKA Administration ASSESSMENT/PLAN: Patient is a 71 year old male with a significant past medical history of asthma since childhood, alcohol/cocaine abuse (denies current use) and cigarette smoker (quit 1 month ago). He presented to the ED with shortness of breath and wheezing. As per patient, he has been having dyspnea on exertion with the cold weather. He is on no medications for asthma currently. He denies any chest pain, palpitations or chest tightness. Denies any fever or chills. He admits to former ETOH abuse and polysubstance abuse but denies any current use. He also states that he is currently homeless and often sleeps in shelters or at his daughter's home. Today patient was noted to be more short of breath at rest, he also noted to have an elevated heart rate in the 140s. A chest xray revealed hyperinflated lungs, EKG shows new onset afib with RVR Imaging: EKG 07/21/2017 shows Normal sinus rhythm with no ST-T abnormality EKG 07/23/2017 Atrial fibrillation with RVR (07/23) Chest xray 07/23: hyperinflated lungs Pulmonary: Asthma exacerbation, acute Continues to be short at breath at rest, worsening today, on 4 liters supplemental oxygen sats are 98% On solumedrol 60mg q8 IV Chest xray reveals hyperinflated lungs Also noted to be tachy on exam in the 140s On Levaquin 250 mg IV daily Monitor respiratory status, titrate oxygen prn donebes scheduled QID + for influenza A, started on Tamiflu Cardiology New onset atrial fib vs. prosysmal afib as per EKG Patient denies chest pain Patient does not report any previous cardiac issues, however with his social status and poor medical followup, it is unclear Started on a heparin drip, ASA 81mg Monitor on telemonitoring, Cardizem TID for rate control Echocardiogram ordered Discussed with men's designer Hypertension, history Does not take home meds BP is at goal Endocrine hmga1c 6.7, hyperglycemic Started on Novolog sliding scale Metformin on discharge Hematology Leukocytosis, mild No fevers,vitals stable Can be due to IV steriods Renal: Mild ANGEL @ 1.6 on 1 liter IVF x 1, encourage PO intake labs in a.m. F.E.N. Fluids: NS IVF x 1, encourage PO intake Electrolytes: monitor in a.m. Nutrition: regular diet Prophylaxis: GI: Protonix DVT: heparin drip Disposition. Transfer to telemonitoring for new onset afib, full code. t Visit type - Emergency Visit Emergency Visit: Yes ED Registration Date: 07/20/17 Care time: The patient presented to the Emergency Department on the above date and was hospitalized for further evaluation of their emergent condition. - New Patient This patient is new to me today: No - Critical Care Critical Care patient: No - Discharge Referral Referred to [facility] Yes Physician Referral: Jay Jay Damian MD ([facility])
[2017-07-23] MEDS ORDERED: PT OWN MED DRAWER 7, Y5N ONE ×3 (10:01→21:43)
[2017-07-23] MEDS: OSELTAMIVIR PHOSPHATE 30 MG CAPSULE PO SCH ×2 (10:04→21:31)
[2017-07-23] MEDS: PANTOPRAZOLE 40 MG TABLET (FP) PO SCH (10:04)
[2017-07-23] MEDS: BUDESONIDE/FORMETEROL FUMARATE 80/4.5 mcg INHALER IH SCH (10:04)
[2017-07-23] MEDS: HEPARIN NA (PORCINE) 5,000 UNITS/ML 1ML VIAL SQ SCH (10:05)
[2017-07-23] MEDS ORDERED: ASPIRIN 325 MG ENTERIC COATED TABLET (FP) PO ONE (10:25)
[2017-07-23] MEDS ORDERED: HEPARIN NA (PORCINE) 5,000 UNITS/ML 1ML VIAL IVPUSH PRN ×6 (10:30→15:47)
[2017-07-23] MEDS ORDERED: METOPROLOL TARTRATE 25 MG TABLET (FP) PO ONE (10:50)
[2017-07-23] MEDS ORDERED: HEPARIN - 25,000 UNIT in SODIUM CHLORIDE 495 ML IV SCH (11:00)
--- NOTE | 2017-07-23 11:18 | CON.CARD ---
Consult Consult Specialty:: Cardiology Referred by:: Hospitalist Reason for Consultation:: Cardiac evaluation - History of Present Illness Chief Complaint: Shortness of breath History of Present Illness: Patient is a 71 year old male with history of bronchial asthma , currently homeless presents with complaints of shortness of breath. He denies chest pain or palpitations. He denies paroxysmal nocturnal dyspnea or orhtopnea. He denies fever or chills. He complains of nonproductive cough and currently is isolated for possible flu. He denies headache or lightheadedness. ECG reveals atrial fibrillation with RVR today. Initially when he came in, ECG revealed normal sinus rhythm. Cardiology consultation was called for further evaluation. He states history of hypertension, but currently he is normotensive. Hemoglobin A1C is elevated at 6.7, but he is not aware of any history of diabetes mellitus. He has history of polysubstance abuse with use of ETOH, cigarettes in the past and crack/cocaine and heroine one time a while ago. Last time he had used crack was about a month ago. - Past Medical History Cardio/Vascular: Yes: HTN Pulmonary: Yes: Asthma, COPD Psych: Yes: Addictions (alcohol) Endocrine: No: Diabetes Mellitus - Past Surgical History Past Surgical History: Yes: Hernia Repair - Alcohol/Substance Use Hx Alcohol Use: Yes (month ago) History of Substance Use: reports: Cocaine, Heroin (One time in the past), Marijuana - Smoking History Smoking history: Former smoker Have you smoked in the past 12 months: Yes Aproximately how many cigarettes per day: 6 If you are a former smoker, when did you quit?: 2 months ago - Social History Usual Living Arrangement: Alone ADL: Independent History of Recent Travel: No Home Medications - Allergies Allergies/Adverse Reactions: Allergies Allergy/AdvReac Type Severity Reaction Status Date / Time No Known Drug Allergies Allergy Verified 07/20/17 10:13 [place]Y AdvReac Uncoded 07/20/17 10:13 - Home Medications Home Medications: Ambulatory Orders Budesonide/Formeterol Fumarate [SYMBICORT 80/4.5mcg -] 1 inh PO BID 10/24/13 Tiotropium Waldo [Spiriva] 1 inh PO DAILY 10/24/13 Acetaminophen [Tylenol .Regular Strength -] 650 mg PO QID PRN #60 tablet Albuterol Sulfate Inhaler - [Ventolin HFA Inhaler -] 2 inh IH Q4H PRN #1 inh Folic Acid 0.8 mg PO DAILY #30 tablet 10/28/13 Guaifenesin Dm [Robitussin Dm -] 10 ml PO Q6H PRN #1 cup 10/28/13 Lisinopril [Prinivil] 40 mg PO DAILY #30 tablet 10/28/13 Mag Hydrox/Al Hydrox/Simeth [Mylanta Oral Suspension -] 30 ml PO Q6H PRN #1 cup 10/28/13 Montelukast Na [Singulair -] 10 mg PO HS #30 tablet 10/28/13 Multivitamin [Animal Chews] 1 each PO DAILY #30 tab.chew 10/28/13 Nicotine Patch [Nicoderm Patch -] 14 mg TD DAILY #30 patch 10/28/13 Prednisone [Deltasone -] 40 mg PO DAILY #8 tablet 10/28/13 Thiamine HCl [Vitamin B1 -] 100 mg PO HS #30 tablet 10/28/13 Family Disease History - Family Disease History Family Disease History: Other: Brother ( of overdose) Review of Systems - Review of Systems Constitutional: denies: Chills, Fever Cardiovascular: reports: Shortness of Breath. denies: Chest Pain, Palpitations Respiratory: reports: Cough, SOB. denies: Hemoptysis, Orthopnea, PND Gastrointestinal: denies: Abdominal Pain, Constipation, Diarrhea, Melena, Nausea , Rectal Bleeding, Vomiting Vital Signs: Vital Signs Temperature 98 F 07/23/17 09:41 Pulse Rate 120 H 07/23/17 09:41 Respiratory Rate 20 07/23/17 09:41 Blood Pressure 108/72 07/23/17 09:41 O2 Sat by Pulse Oximetry (%) 97 07/22/17 21:00 HENT: Yes: Atraumatic Neck: Yes: Supple Respiratory: Yes: Diminished, Wheezes (Expiratory) Gastrointestinal: Yes: Normal Bowel Sounds, Soft. No: Tenderness Cardiovascular: Yes: Tachycardia, Pulse Irregular JVD: No Carotid Bruit: No PMI: Non-Displaced Heart Sounds: Yes: S1, S2. No: Gallop Edema: No - Other Data Labs, Other Data: CBC, BMP 07/23/17 06:25 07/23/17 06:25 Laboratory Results - last 24 hr 1207/23/17 07/23/17 06:25 06:25 06:26 WBC 13.8 H RBC 4.97 Hgb 13.5 Hct 41.8 MCV 84.1 MCH 27.2 MCHC 32.4 RDW 14.4 Plt Count 229 MPV 8.9 Neutrophils % 92.6 H Lymphocytes % 4.0 L D Monocytes % 3.2 L Eosinophils % 0.0 Basophils % 0.2 Sodium 139 Potassium 5.1 Chloride 100 Carbon Dioxide 29 Anion Gap 10 BUN 22 H D Creatinine 1.6 H Creat Clearance w eGFR 43.07 POC Glucometer 129 Random Glucose 115 H D Calcium 9.1 Total Bilirubin 0.4 D AST 22 D ALT 25 D Alkaline Phosphatase 68 Total Protein 6.6 Albumin 3.3 L Normal sinus rhythm with no ST-T abnormality (07/21) Atrial fibrillation with RVR (07/23) Echo: Pending Imaging - Results Chest X-ray: Report Reviewed (Atelectasis) EKG: Report Reviewed Problem List - Problems (1) Atrial fibrillation Code(s): I48.91 - UNSPECIFIED ATRIAL FIBRILLATION Qualifiers: Atrial fibrillation type: paroxysmal Qualified Code(s): I48.0 - Paroxysmal atrial fibrillation (2) Asthma with acute exacerbation Code(s): J45.901 - UNSPECIFIED ASTHMA WITH (ACUTE) EXACERBATION Qualifiers: Asthma severity: mild Asthma persistence: intermittent Qualified Code(s) : J45.21 - Mild intermittent asthma with (acute) exacerbation (3) COPD (chronic obstructive pulmonary disease) Code(s): J44.9 - CHRONIC OBSTRUCTIVE PULMONARY DISEASE, UNSPECIFIED Qualifiers: COPD type: unspecified COPD Qualified Code(s): J44.9 - Chronic obstructive pulmonary disease, unspecified (4) Chronic alcoholism Code(s): F10.20 - ALCOHOL DEPENDENCE, UNCOMPLICATED Qualifiers: Substance use status: uncomplicated Qualified Code(s): F10.20 - Alcohol dependence, uncomplicated (5) Cocaine dependence Code(s): F14.20 - COCAINE DEPENDENCE, UNCOMPLICATED Qualifiers: Substance use status: uncomplicated Qualified Code(s): F14.20 - Cocaine dependence, uncomplicated (6) Essential hypertension Code(s): I10 - ESSENTIAL (PRIMARY) HYPERTENSION Assessment/Plan 1. New onset atrial fibrillation with RVR, [id number] score probably around 1 or 2 2. History of hypertension - currently normotensive 3. Elevated Hemoglobin A1C suggests diabetes mellitus 4. Bronchial asthma with expiratory wheeze 5. Polysubstance abuse including ETOH and cocaine 6. Shortness of breath with cough c/s influenza PLAN: 1. Start Heparin drip for time being until decision is made regarding senior living use of Coumadin vs. NOAC, he may not be an ideal candidate in view of his social issues. Will have to further assess his stroke risk 2. Add Cardizem 30 mg Q8 hours 3. Transthoracic echocardiography to assess LV/RV and valvular function 4. Check TFT 5. Further assessment for diabetes mellitus 6. Steroid taper, antibiotic coverage and Tamiflu. 7. soaking tank worker support 8. Counselling regarding polysubstance abuse Further plans are to follow. Transfer to telemetry Discussed with Hospitalist service Etienne Escalona MD
--- NOTE | 2017-07-23 12:34 | PN ---
Progress Note (short form) - Note Progress Note: Still with some RICARDO. Noted new rapid AFib. Cough is essentially dry. No hemoptysis. Intake & Output 07/20/17 07/21/17 07/22/17 07/23/17 23:59 23:59 23:59 23:59 Intake Total 600 1850 250 10 Output Total 2 Balance 598 1850 250 10 Weight 130 lb Last Vital Signs Temp Pulse Resp BP Pulse Ox 98 F 120 H 20 108/72 97 07/23/17 09:41 07/23/17 09:41 07/23/17 09:41 07/23/17 09:41 07/22/17 21:00 Active Medications Albuterol/Ipratropium (Duoneb -) 1 amp NEB QIDR [facility] Last Admin: 07/23/17 09:45 Dose: 1 amp Aspirin (Ecotrin -) 81 mg PO DAILY [facility] Diltiazem HCl (Cardizem -) 30 mg PO TID [facility] Heparin Sodium (Porcine) (Heparin -) 1,000 unit IVPUSH PRN PRN PRN Reason: Heparin Heparin Sodium (Porcine) (Heparin -) 5,000 unit IVPUSH PRN PRN PRN Reason: Heparin Levofloxacin (Levaquin 250 Mg Premixed Ivpb -) 250 mg in 50 mls @ 50 mls/hr IVPB DAILY [facility] Last Admin: 07/23/17 10:03 Dose: 50 mls/hr Sodium Chloride (Normal Saline -) 1,000 mls @ 50 mls/hr IV ASDIR [facility] Stop: 07/24/17 08:48 Last Admin: 07/23/17 10:05 Dose: 50 mls/hr Heparin Sodium (Porcine) 25, (000 unit/ Sodium Chloride) 500 mls @ 16 mls/hr IV TITR [facility]; 800 UNIT/HR PRN Reason: Protocol Insulin Aspart (Novolog Vial Sliding Scale -) 1 vial SQ ACHS [facility] PRN Reason: Protocol Last Admin: 07/23/17 11:51 Dose: 2 units Methylprednisolone Sodium Succinate (Solu-Medrol -) 60 mg IVPUSH Q8H-IV [facility] Last Admin: 07/23/17 10:04 Dose: 60 mg Oseltamivir Phosphate (Tamiflu -) 30 mg PO BID [facility] Stop: 07/27/17 21:59 Last Admin: 07/23/17 10:04 Dose: 30 mg Pantoprazole Sodium (Protonix -) 40 mg PO DAILY [facility] Last Admin: 07/23/17 10:04 Dose: 40 mg Eyes: Yes: EOM Intact HENT: Yes: Normocephalic Neck: Yes: Trachea Midline Cardiovascular: Yes: Regular Rate and Rhythm Respiratory: Yes: Mild scattered expiratory Wheeze Gastrointestinal: Yes: Normal Bowel Sounds Extremities: Yes: WNL Labs: Laboratory Results - last 24 hr 07/22/17 07/22/17 07/23/17 16:46 21:07 06:25 WBC 13.8 H RBC 4.97 Hgb 13.5 Hct 41.8 MCV 84.1 MCH 27.2 MCHC 32.4 RDW 14.4 Plt Count 229 MPV 8.9 Neutrophils % 92.6 H Lymphocytes % 4.0 L D Monocytes % 3.2 L Eosinophils % 0.0 Basophils % 0.2 Sodium Potassium Chloride Carbon Dioxide Anion Gap BUN Creatinine Creat Clearance w eGFR POC Glucometer 112 144 Random Glucose Calcium Total Bilirubin AST ALT Alkaline Phosphatase Total Protein Albumin TSH 07/23/17 07/23/17 07/23/17 06:25 06:26 06:50 WBC RBC Hgb Hct MCV MCH MCHC RDW Plt Count MPV Neutrophils % Lymphocytes % Monocytes % Eosinophils % Basophils % Sodium 139 Potassium 5.1 Chloride 100 Carbon Dioxide 29 Anion Gap 10 BUN 22 H D Creatinine 1.6 H Creat Clearance w eGFR 43.07 POC Glucometer 129 Random Glucose 115 H D Calcium 9.1 Total Bilirubin 0.4 D AST 22 D ALT 25 D Alkaline Phosphatase 68 Total Protein 6.6 Albumin 3.3 L TSH 0.49 Cancelled 07/23/17 11:48 WBC RBC Hgb Hct MCV MCH MCHC RDW Plt Count MPV Neutrophils % Lymphocytes % Monocytes % Eosinophils % Basophils % Sodium Potassium Chloride Carbon Dioxide Anion Gap BUN Creatinine Creat Clearance w eGFR POC Glucometer 169 Random Glucose Calcium Total Bilirubin AST ALT Alkaline Phosphatase Total Protein Albumin TSH Problem List - Problems (1) Asthma with acute exacerbation Code(s): J45.901 - UNSPECIFIED ASTHMA WITH (ACUTE) EXACERBATION (2) COPD (chronic obstructive pulmonary disease) Code(s): J44.9 - CHRONIC OBSTRUCTIVE PULMONARY DISEASE, UNSPECIFIED (3) Chronic alcoholism Code(s): F10.20 - ALCOHOL DEPENDENCE, UNCOMPLICATED (4) Cocaine dependence Code(s): F14.20 - COCAINE DEPENDENCE, UNCOMPLICATED Assessment/Plan ACUTE BRONCHITIS PLAN: CARDIOLOGY CONSULT NOTED EVER/LABA/LAMA/ICS SYSTEMIC STEROIDS NOTED ANTIBIOTICS O2 PRN DAILY PEAK FLOW DR HAN
[2017-07-23] MEDS ORDERED: dilTIAZem HCL 30 MG TABLET (FP) PO SCH (14:00)
[2017-07-23] MEDS: HEPARIN - 25,000 UNIT in SODIUM CHLORIDE 495 ML IV SCH ×2 (14:45→22:57)
[2017-07-23] MEDS ORDERED: dilTIAZem HCL 50 MG/10 ML - 10 ML VIAL IVPUSH ONE (17:07)
[2017-07-23] MEDS ORDERED: methylPREDNISolone NA SUCC 125 MG/2 ML VIAL IVPUSH SCH (18:00)
[2017-07-23] MEDS: dilTIAZem HCL 30 MG TABLET (FP) PO SCH ×3 (18:33→23:01)
--- NOTE | 2017-07-23 21:18 | EKG ---
Test Reason : Blood Pressure : / mmHG Vent. Rate : 152 BPM Atrial Rate : 170 BPM P-R Int : 000 ms QRS Dur : 078 ms QT Int : 264 ms P-R-T Axes : 000 076 -60 degrees QTc Int : 419 ms ATRIAL FIBRILLATION WITH RAPID VENTRICULAR RESPONSE SEPTAL INFARCT , AGE UNDETERMINED T WAVE ABNORMALITY, CONSIDER INFERIOR ISCHEMIA ABNORMAL ECG WHEN COMPARED WITH ECG OF 21-JUL-2017 13:51, ATRIAL FIBRILLATION HAS REPLACED SINUS RHYTHM VENT. RATE HAS INCREASED BY 62 BPM SEPTAL INFARCT IS NOW PRESENT T WAVE INVERSION NOW EVIDENT IN INFERIOR LEADS PATIENT SITTING UP IN BED DURING EKG DUE TO BREATHING Confirmed by MD MORALES, KOBE ([id number]) on 07/23/2017 9:18:04 PM Referred By: Lyric GALAN Confirmed By:KOBE NIELSEN MD
[2017-07-24] MEDS ORDERED: dilTIAZem HCL 30 MG TABLET (FP) PO ONE (00:01)
[2017-07-24] MEDS: methylPREDNISolone NA SUCC 40 MG/1 ML VIAL IVPUSH SCH ×3 (01:10→18:14)
[2017-07-24] MEDS: dilTIAZem HCL 30 MG TABLET (FP) PO SCH ×3 (05:44→18:14)
[2017-07-24] MEDS: INSULIN SLIDING SCALE (NOVOLOG) 1 VIAL SQ SCH ×4 (06:02→21:38)
[2017-07-24] MEDS: ALBUTEROL SO4 2.5/IPRATROPIUM 0.5 INH SOL 3 ML VIAL.NEB. NEB SCH ×4 (06:50→23:25)
[2017-07-24 08:24] LABS: BASO % 0.2 % (0-2.0); HEMATOCRIT 37.3 % (35.4-49); HEMOGLOBIN 12.2 GM/dL (11.7-16.9); LYMPH % 3.4 % (8-40); MCH 27.4 pg (25.7-33.7); MCHC 32.6 g/dl (32.0-35.9); MEAN CELL VOLUME 84.1 fl (80-96); MEAN PLT VOLUME 9.5 fl (7.5-11.1); MONO % 2.8 % (3.8-10.2); NEUT % 93.6 % (42.8-82.8); PLATELET COUNT 195 K/MM3 (134-434); RBC 4.43 M/mm3 (4.00-5.60); RDW 14.8 % (11.9-15.9); WHITE BLOOD COUNT 10.2 K/mm3 (4.0-10.0)
[2017-07-24 08:54] LABS: CHLORIDE 101 mmol/L (98-107); POTASSIUM 5.2 mmol/L (3.5-5.1); SODIUM 138 mmol/L (136-145)
[2017-07-24 09:03] LABS: ALBUMIN 2.8 g/dl (3.4-5.0); ALK PHOS 60 U/L (45-117); ANION GAP 5 (8-16); BILIRUBIN,TOTAL 0.3 mg/dL (0.2-1.0); BLOOD UREA NITROGEN 27 mg/dL (7-18); CALCIUM 8.3 mg/dL (8.5-10.1); CHOLESTEROL 238 mg/dL (50-200); CO2 32 mmol/L (21-32); CREATININE 1.3 mg/dL (0.7-1.3); GLUCOSE,RANDOM 118 mg/dL (74-106); HDL CHOLESTEROL 69 mg/dL (40-60); LDL CHOLESTEROL (ONLY SJRH) 156 mg/dL (5-100); SGOT/AST 32 U/L (15-37); SGPT/ALT 38 U/L (12-78); TOT PROT 5.6 g/dl (6.4-8.2); TRIGLYCERIDES 62 mg/dL (35-160)
--- NOTE | 2017-07-24 09:18 | PN ---
Progress Note, Physician History of Present Illness: Dyspnea slowly resolving, denies chest pain, palpitations, near syncope, remains in rapid afib. - Current Medication List Current Medications: Active Medications Albuterol/Ipratropium (Duoneb -) 1 amp NEB QIDR [facility] Last Admin: 07/24/17 06:50 Dose: 1 amp Aspirin (Ecotrin -) 81 mg PO DAILY [facility] Diltiazem HCl (Cardizem -) 30 mg PO Q6HPO [facility] Last Admin: 07/24/17 05:44 Dose: 30 mg Heparin Sodium (Porcine) (Heparin -) 1,000 unit IVPUSH PRN PRN PRN Reason: Heparin Heparin Sodium (Porcine) (Heparin -) 5,000 unit IVPUSH PRN PRN PRN Reason: Heparin Heparin Sodium (Porcine) 25, (000 unit/ Sodium Chloride) 500 mls @ 16 mls/hr IV TITR [facility]; 800 UNIT/HR PRN Reason: Protocol Last Admin: 07/23/17 22:57 Dose: 800 unit/hr, 16 mls/hr Levofloxacin (Levaquin 250 Mg Premixed Ivpb -) 250 mg in 50 mls @ 50 mls/hr IVPB DAILY [facility] Insulin Aspart (Novolog Vial Sliding Scale -) 1 vial SQ ACHS [facility] PRN Reason: Protocol Last Admin: 07/24/17 06:02 Dose: Not Given Methylprednisolone Sodium Succinate (Solu-Medrol -) 40 mg IVPUSH Q8H-IV [facility] Last Admin: 07/24/17 01:10 Dose: 40 mg Oseltamivir Phosphate (Tamiflu -) 30 mg PO BID [facility] Stop: 07/27/17 21:59 Last Admin: 07/23/17 21:31 Dose: 30 mg Pantoprazole Sodium (Protonix -) 40 mg PO DAILY [facility] - Objective Vital Signs: Vital Signs Temperature 97.8 F 07/24/17 07:29 Pulse Rate 110 H 07/24/17 07:29 Respiratory Rate 22 07/24/17 07:29 Blood Pressure 113/70 07/24/17 07:29 O2 Sat by Pulse Oximetry (%) 100 07/23/17 21:00 Constitutional: Yes: No Distress, Calm Neck: Yes: Supple Cardiovascular: Yes: Tachycardia, Pulse Irregular Respiratory: Yes: Regular, Diminished, On Nasal O2 Gastrointestinal: Yes: Normal Bowel Sounds, Soft Edema: No Labs: CBC, BMP 07/24/17 05:35 07/24/17 05:35 - ....Imaging EKG: Report Reviewed (Tele: Rapif afib 140s) Problem List - Problems (1) Hyperlipidemia Code(s): E78.5 - HYPERLIPIDEMIA, UNSPECIFIED Qualifiers: Hyperlipidemia type: pure hypercholesterolemia Qualified Code(s): E78.00 - Pure hypercholesterolemia, unspecified; E78.0 - Pure hypercholesterolemia (2) Influenza A Code(s): J10.1 - FLU DUE TO OTH IDENT INFLUENZA VIRUS W OTH RESP MANIFEST (3) Asthma with acute exacerbation Code(s): J45.901 - UNSPECIFIED ASTHMA WITH (ACUTE) EXACERBATION Qualifiers: Asthma severity: mild Asthma persistence: intermittent Qualified Code(s) : J45.21 - Mild intermittent asthma with (acute) exacerbation (4) Atrial fibrillation Code(s): I48.91 - UNSPECIFIED ATRIAL FIBRILLATION Qualifiers: Atrial fibrillation type: paroxysmal Qualified Code(s): I48.0 - Paroxysmal atrial fibrillation (5) COPD (chronic obstructive pulmonary disease) Code(s): J44.9 - CHRONIC OBSTRUCTIVE PULMONARY DISEASE, UNSPECIFIED Qualifiers: COPD type: unspecified COPD Qualified Code(s): J44.9 - Chronic obstructive pulmonary disease, unspecified (6) Chronic alcoholism Code(s): F10.20 - ALCOHOL DEPENDENCE, UNCOMPLICATED Qualifiers: Substance use status: uncomplicated Qualified Code(s): F10.20 - Alcohol dependence, uncomplicated (7) Cocaine dependence Code(s): F14.20 - COCAINE DEPENDENCE, UNCOMPLICATED Qualifiers: Substance use status: uncomplicated Qualified Code(s): F14.20 - Cocaine dependence, uncomplicated Assessment/Plan 07/23/2017 Echo: Normal LV size with hyperkinetic LV fxn, mod-severe eccentric MR, normal biatrial sizes 1. Newly diagnosed atrial fibrillation with RVR, [id number] score probably around 1 or 2 2. History of hypertension - currently normotensive 3. Elevated Hemoglobin A1C suggests diabetes mellitus 4. Bronchial asthma with acute exacerbation/acute bronchitis 5. Polysubstance abuse including ETOH and cocaine 6. Influenza A 7. Hyperlipidemia PLAN: 1. Heparin drip for time being until decision is made regarding senior care use of Coumadin vs. NOAC, he may not be an ideal candidate in view of his social issues. Will have to further assess his stroke risk, remains on ASA 2. Increase Cardizem 30 mg QID hours with IV Cardizem as needed for additional rate-control, add Lipitor 20 qd 3. Check TFT 4. Further assessment for diabetes mellitus 5. IV Steroid taper with GI protection, antibiotic coverage, BD, O2 as needed, PF and Tamiflu. 6. 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 Counselling regarding polysubstance abuse
[2017-07-24] MEDS ORDERED: ASPIRIN COATED 81 MG TABLET.EC PO ONE (10:00)
[2017-07-24] MEDS ORDERED: ASPIRIN COATED 81 MG TABLET.EC PO SCH (10:00)
[2017-07-24] MEDS: ASPIRIN COATED 81 MG TABLET.EC PO SCH (10:50)
[2017-07-24] MEDS: OSELTAMIVIR PHOSPHATE 30 MG CAPSULE PO SCH ×2 (10:51→21:38)
[2017-07-24] MEDS: PANTOPRAZOLE 40 MG TABLET (FP) PO SCH (10:51)
[2017-07-24] MEDS: dilTIAZem HCL 50 MG/10 ML - 10 ML VIAL IVPUSH PRN ×2 (10:52→19:29)
--- NOTE | 2017-07-24 12:49 | PN ---
Progress Note, Physician History of Present Illness: PULMONARY ALERT,LESS DYSPNEIC, REMAINS IN RAPID AFIB - Current Medication List Current Medications: Active Medications Albuterol/Ipratropium (Duoneb -) 1 amp NEB QIDR [facility] Last Admin: 07/24/17 12:10 Dose: 1 amp Aspirin (Ecotrin -) 81 mg PO DAILY [facility] Last Admin: 07/24/17 10:50 Dose: 81 mg Diltiazem HCl (Cardizem -) 30 mg PO Q6HPO [facility] Last Admin: 07/24/17 05:44 Dose: 30 mg Diltiazem HCl (Cardizem Injection -) 10 mg IVPUSH Q4H PRN PRN Reason: TACHYCARDIA Last Admin: 07/24/17 10:52 Dose: 10 mg Heparin Sodium (Porcine) (Heparin -) 1,000 unit IVPUSH PRN PRN PRN Reason: Heparin Heparin Sodium (Porcine) (Heparin -) 5,000 unit IVPUSH PRN PRN PRN Reason: Heparin Heparin Sodium (Porcine) 25, (000 unit/ Sodium Chloride) 500 mls @ 16 mls/hr IV TITR [facility]; 800 UNIT/HR PRN Reason: Protocol Last Titration: 07/24/17 10:00 Dose: 650 unit/hr, 13 mls/hr Levofloxacin (Levaquin 250 Mg Premixed Ivpb -) 250 mg in 50 mls @ 50 mls/hr IVPB DAILY [facility] Insulin Aspart (Novolog Vial Sliding Scale -) 1 vial SQ ACHS [facility] PRN Reason: Protocol Last Admin: 07/24/17 12:33 Dose: 6 units Methylprednisolone Sodium Succinate (Solu-Medrol -) 40 mg IVPUSH Q8H-IV [facility] Last Admin: 07/24/17 10:50 Dose: 40 mg Oseltamivir Phosphate (Tamiflu -) 30 mg PO BID [facility] Stop: 07/27/17 21:59 Last Admin: 07/24/17 10:51 Dose: 30 mg Pantoprazole Sodium (Protonix -) 40 mg PO DAILY [facility] Last Admin: 07/24/17 10:51 Dose: 40 mg - Objective Vital Signs: Vital Signs Temperature 98.1 F 07/24/17 10:00 Pulse Rate 140 H 07/24/17 10:00 Respiratory Rate 26 H 07/24/17 10:00 Blood Pressure 126/90 07/24/17 10:00 O2 Sat by Pulse Oximetry (%) 100 07/24/17 09:00 Constitutional: Yes: Well Nourished, Calm Eyes: Yes: WNL HENT: Yes: WNL Neck: Yes: WNL Cardiovascular: Yes: Tachycardia, Pulse Irregular, S1, S2 Respiratory: Yes: Diminished Gastrointestinal: Yes: Normal Bowel Sounds, Soft Extremities: Yes: WNL Edema: No Labs: CBC, BMP 07/24/17 05:35 07/24/17 05:35 Problem List - Problems (1) Atrial fibrillation Code(s): I48.91 - UNSPECIFIED ATRIAL FIBRILLATION Qualifiers: Atrial fibrillation type: paroxysmal Qualified Code(s): I48.0 - Paroxysmal atrial fibrillation (2) Influenza A Code(s): J10.1 - FLU DUE TO OTH IDENT INFLUENZA VIRUS W OTH RESP MANIFEST Assessment/Plan Problem List - Problems (1) Asthma with acute exacerbation Code(s): J45.901 - UNSPECIFIED ASTHMA WITH (ACUTE) EXACERBATION (2) COPD (chronic obstructive pulmonary disease) Code(s): J44.9 - CHRONIC OBSTRUCTIVE PULMONARY DISEASE, UNSPECIFIED (3) Chronic alcoholism Code(s): F10.20 - ALCOHOL DEPENDENCE, UNCOMPLICATED (4) Cocaine dependence Code(s): F14.20 - COCAINE DEPENDENCE, UNCOMPLICATED Assessment/Plan ACUTE BRONCHITIS INFLUENZA A RAPID AFIB PLAN: RATE CONTROL CARDIZEM EVER/LABA/LAMA/ICS STEROID TAPER NOTED ANTIBIOTICS O2 PRN DAILY PEAK FLOW TAMIFLU DR COX
[2017-07-24] MEDS: HEPARIN - 25,000 UNIT in SODIUM CHLORIDE 495 ML IV SCH ×2 (16:38→22:25)
--- NOTE | 2017-07-24 17:51 | PN ---
Progress Note (short form) - Note Progress Note: Subjective: The patient was seen and examined at the bedside, he denies any chest pain, shortness of breath, palpitations. Current Medications Generic Name Dose Route Start Last Admin Trade Name Freq PRN Reason Stop Dose Admin Albuterol/Ipratropium 1 amp 07/23/17 12:00 07/24/17 12:10 Duoneb - NEB 1 amp QIDR [facility] Administration Aspirin 81 mg 07/24/17 10:00 07/24/17 10:50 Ecotrin - PO 81 mg DAILY [facility] Administration Diltiazem HCl 30 mg 07/23/17 18:00 07/24/17 12:58 Cardizem - PO 30 mg Q6HPO [facility] Administration Diltiazem HCl 10 mg 07/24/17 09:31 07/24/17 10:52 Cardizem Injection - IVPUSH 10 mg Q4H PRN Administration TACHYCARDIA Heparin Sodium (Porcine) 1,000 unit 07/23/17 15:47 Heparin - IVPUSH PRN PRN Heparin Heparin Sodium (Porcine) 5,000 unit 07/23/17 15:47 Heparin - IVPUSH PRN PRN Heparin Heparin Sodium (Porcine) 25, 500 mls @ 16 mls/hr 07/23/17 15:47 07/24/17 16: 38 000 unit/ Sodium Chloride IV 650 unit/hr TITR [facility] 13 mls/hr Protocol Administration 800 UNIT/HR Levofloxacin 250 mg in 50 mls @ 50 mls/hr 07/24/17 12:45 07/24/17 13:12 Levaquin 250 Mg Premixed Ivpb - IVPB Not Given DAILY [facility] Insulin Aspart 1 vial 07/23/17 16:30 07/24/17 16:37 Novolog Vial Sliding Scale - SQ Not Given ACHS [facility] Protocol Methylprednisolone Sodium Succinate 40 mg 07/23/17 18:24 07/24/17 10:50 Solu-Medrol - IVPUSH 07/25/17 02:00 40 mg Q8H-IV [facility] Administration Methylprednisolone Sodium Succinate 40 mg 07/25/17 10:00 Solu-Medrol - IVPUSH BID [facility] Oseltamivir Phosphate 30 mg 07/23/17 22:00 07/24/17 10:51 Tamiflu - PO 07/27/17 21:59 30 mg BID [facility] Administration Pantoprazole Sodium 40 mg 07/24/17 10:00 07/24/17 10:51 Protonix - PO 40 mg DAILY [facility] Administration Objective: Vital Signs Period Temp Pulse Resp BP Sys/Vaz Pulse Ox Last 24 Hr 97.7 F-98.7 F 107-140 20-26 92-134/46-90 100-100 Physical Exam: General: NAD, A&Ox3 Lungs: CTA bilaterally Heart: Irregular, S1S2 Abd: Soft, non-tender, non-distended. Normoactive bowel sounds Ext: Warm, well-perfused. 2+ DP/PT bilaterally Neuro: CN 2-12 intact CBCD WBC 10.2 K/mm3 (4.0-10.0) H 07/24/17 05:35 RBC 4.43 M/mm3 (4.00-5.60) 07/24/17 05:35 Hgb 12.2 GM/dL (11.7-16.9) 07/24/17 05:35 Hct 37.3 % (35.4-49) 07/24/17 05:35 MCV 84.1 fl (80-96) 07/24/17 05:35 MCHC 32.6 g/dl (32.0-35.9) 07/24/17 05:35 RDW 14.8 % (11.9-15.9) 07/24/17 05:35 Plt Count 195 K/MM3 (134-434) 07/24/17 05:35 MPV 9.5 fl (7.5-11.1) 07/24/17 05:35 CMP Sodium 138 mmol/L (136-145) 07/24/17 05:35 Potassium 5.2 mmol/L (3.5-5.1) H 07/24/17 05:35 Chloride 101 mmol/L (98-107) 07/24/17 05:35 Carbon Dioxide 32 mmol/L (21-32) 07/24/17 05:35 Anion Gap 5 (8-16) L 07/24/17 05:35 BUN 27 mg/dL (7-18) H D 07/24/17 05:35 Creatinine 1.3 mg/dL (0.7-1.3) 07/24/17 05:35 Creat Clearance w eGFR 54.73 (>60) 07/24/17 05:35 Random Glucose 118 mg/dL (74-106) H 07/24/17 05:35 Calcium 8.3 mg/dL (8.5-10.1) L 07/24/17 05:35 Total Bilirubin 0.3 mg/dL (0.2-1.0) D 07/24/17 05:35 AST 32 U/L (15-37) D 07/24/17 05:35 ALT 38 U/L (12-78) D 07/24/17 05:35 Alkaline Phosphatase 60 U/L (45-117) 07/24/17 05:35 Total Protein 5.6 g/dl (6.4-8.2) L 07/24/17 05:35 Albumin 2.8 g/dl (3.4-5.0) L 07/24/17 05:35 CARDIAC ENZYMES Troponin I < 0.02 ng/ml (0.00-0.05) 07/21/17 19:58 Vital Signs Period Temp Pulse Resp BP Sys/Vaz Pulse Ox Last 24 Hr 97.7 F-98.7 F 107-140 20-26 92-134/46-90 100-100 Assessment: This is a 71 year old male with PMHx of asthma, alcohol/cocaine abuse (denies current use), cigarette smoker, who presented to the ED with shortness of breath and wheezing. Plan: 1) Acute asthma exacerbation - Duonebs - Solu-medrol 40mg IVP bid - Resume symbicort - O2 via nc prn - Daily peak flow - On Levaquin - Appreciate pulmonary consult 2) New onset a.fib with RVR - Continue Heparin gtt for now until decision regarding intermediate designer use Coumadin vs. NOAC - Increased Cardizem to 30mg qid with IV Cardizem prn - Lipitor added - F/u TSH - Appreciate cardiology consult 3) Influenza A positive - Continue Tamiflu 4) F/E/N: - Monitor electrolytes - Regular diet 5) Prophylaxis: - On Heparin gtt - OOB ambulating 6) Dispo: - Requires continued inpatient care CODE STATUS: FULL CODE Visit type - Emergency Visit Emergency Visit: Yes ED Registration Date: 07/20/17 Care time: The patient presented to the Emergency Department on the above date and was hospitalized for further evaluation of their emergent condition. - New Patient This patient is new to me today: Yes Date on this admission: 07/24/17 - Critical Care Critical Care patient: No
[2017-07-24] MEDS: METOPROLOL TARTRATE 25 MG TABLET (FP) PO SCH (20:29)
[2017-07-24] MEDS ORDERED: METOPROLOL TARTRATE 5 MG/5 ML VIAL IVPUSH ONE (20:30)
[2017-07-24] MEDS ORDERED: INSULIN (NOVOLOG) ASPART 100 UNITS/ML 10ML VIAL ONE (21:32)
[2017-07-24] MEDS ORDERED: PT OWN MED DRAWER 7, Y5N ONE (21:33)
[2017-07-24] MEDS: BUDESONIDE/FORMETEROL FUMARATE 80/4.5 mcg INHALER IH SCH (21:38)
[2017-07-25] MEDS ORDERED: dilTIAZem HCL 25 MG/5 ML - 5 ML VIAL IVPUSH PRN (00:07)
[2017-07-25] MEDS: dilTIAZem HCL 50 MG/10 ML - 10 ML VIAL IVPUSH PRN ×2 (00:16→05:56)
[2017-07-25] MEDS: methylPREDNISolone NA SUCC 40 MG/1 ML VIAL IVPUSH SCH ×3 (01:27→22:23)
[2017-07-25] MEDS: INSULIN SLIDING SCALE (NOVOLOG) 1 VIAL SQ SCH ×4 (06:00→22:23)
[2017-07-25] MEDS: ALBUTEROL SO4 2.5/IPRATROPIUM 0.5 INH SOL 3 ML VIAL.NEB. NEB SCH ×4 (06:27→23:25)
[2017-07-25] MEDS ORDERED: METOPROLOL TARTRATE 5 MG/5 ML VIAL ONE (07:19)
[2017-07-25 07:20] LABS: HEMATOCRIT 38.7 % (35.4-49); HEMOGLOBIN 12.7 GM/dL (11.7-16.9); MCH 27.3 pg (25.7-33.7); MCHC 32.7 g/dl (32.0-35.9); MEAN CELL VOLUME 83.5 fl (80-96); MEAN PLT VOLUME 8.9 fl (7.5-11.1); PLATELET COUNT 205 K/MM3 (134-434); RBC 4.63 M/mm3 (4.00-5.60); RDW 14.2 % (11.9-15.9); WHITE BLOOD COUNT 12.9 K/mm3 (4.0-10.0)
[2017-07-25] MEDS ORDERED: METOPROLOL TARTRATE 5 MG/5 ML VIAL IVPUSH PRN (07:27)
[2017-07-25 07:46] LABS: ALBUMIN 2.8 g/dl (3.4-5.0); ANION GAP 7 (8-16); BILIRUBIN,TOTAL 0.3 mg/dL (0.2-1.0); BLOOD UREA NITROGEN 24 mg/dL (7-18); CHLORIDE 101 mmol/L (98-107); CO2 32 mmol/L (21-32); CREATININE 1.3 mg/dL (0.7-1.3); GLUCOSE,RANDOM 139 mg/dL (74-106); POTASSIUM 4.8 mmol/L (3.5-5.1); SGOT/AST 39 U/L (15-37); SGPT/ALT 46 U/L (12-78); SODIUM 140 mmol/L (136-145); TOT PROT 5.6 g/dl (6.4-8.2)
[2017-07-25 07:47] LABS: ALK PHOS 60 U/L (45-117)
[2017-07-25] MEDS: OSELTAMIVIR PHOSPHATE 30 MG CAPSULE PO SCH ×2 (09:17→22:34)
[2017-07-25] MEDS: ASPIRIN COATED 81 MG TABLET.EC PO SCH (09:17)
[2017-07-25] MEDS: PANTOPRAZOLE 40 MG TABLET (FP) PO SCH (09:17)
[2017-07-25] MEDS: METOPROLOL TARTRATE 25 MG TABLET (FP) PO SCH ×2 (09:18→22:24)
[2017-07-25] MEDS: BUDESONIDE/FORMETEROL FUMARATE 80/4.5 mcg INHALER IH SCH ×2 (09:18→22:24)
--- NOTE | 2017-07-25 10:29 | PN ---
Progress Note, Physician History of Present Illness: Dyspnea slowly resolving, denies chest pain, palpitations, near syncope, remains in rapid afib. - Current Medication List Current Medications: Active Medications Albuterol/Ipratropium (Duoneb -) 1 amp NEB QIDR [facility] Last Admin: 07/25/17 06:27 Dose: 1 amp Aspirin (Ecotrin -) 81 mg PO DAILY [facility] Last Admin: 07/25/17 09:17 Dose: 81 mg Budesonide/Formoterol Fumarate (Symbicort 80/4.5mcg -) 1 puff IH BID [facility] Last Admin: 07/25/17 09:18 Dose: 1 puff Diltiazem HCl (Cardizem Injection -) 10 mg IVPUSH Q4H PRN PRN Reason: HR OVER 120 Last Admin: 07/25/17 05:56 Dose: 10 mg Heparin Sodium (Porcine) (Heparin -) 1,000 unit IVPUSH PRN PRN PRN Reason: Heparin Heparin Sodium (Porcine) (Heparin -) 5,000 unit IVPUSH PRN PRN PRN Reason: Heparin Heparin Sodium (Porcine) 25, (000 unit/ Sodium Chloride) 500 mls @ 16 mls/hr IV TITR [facility]; 800 UNIT/HR PRN Reason: Protocol Last Admin: 07/24/17 22:25 Dose: 650 unit/hr, 13 mls/hr Levofloxacin (Levaquin 250 Mg Premixed Ivpb -) 250 mg in 50 mls @ 50 mls/hr IVPB DAILY [facility] Last Admin: 07/25/17 09:18 Dose: 50 mls/hr Insulin Aspart (Novolog Vial Sliding Scale -) 1 vial SQ ACHS [facility] PRN Reason: Protocol Last Admin: 07/25/17 06:00 Dose: Not Given Methylprednisolone Sodium Succinate (Solu-Medrol -) 40 mg IVPUSH BID [facility] Last Admin: 07/25/17 09:17 Dose: 40 mg Metoprolol Tartrate (Lopressor -) 25 mg PO BID [facility] Last Admin: 07/25/17 09:18 Dose: 25 mg Metoprolol Tartrate (Lopressor Injection -) 5 mg IVPUSH Q4H PRN Last Admin: 07/25/17 07:28 Dose: 5 mg Oseltamivir Phosphate (Tamiflu -) 30 mg PO BID [facility] Stop: 07/27/17 21:59 Last Admin: 07/25/17 09:17 Dose: 30 mg Pantoprazole Sodium (Protonix -) 40 mg PO DAILY [facility] Last Admin: 07/25/17 09:17 Dose: 40 mg - Objective Vital Signs: Vital Signs Temperature 97.9 F 07/25/17 09:05 Pulse Rate 129 H 07/25/17 09:05 Respiratory Rate 20 07/25/17 09:05 Blood Pressure 102/71 07/25/17 09:05 O2 Sat by Pulse Oximetry (%) 99 07/25/17 09:00 Constitutional: Yes: No Distress, Calm Neck: Yes: Supple Cardiovascular: Yes: Tachycardia, Pulse Irregular Respiratory: Yes: Regular, Diminished Gastrointestinal: Yes: Normal Bowel Sounds, Soft Edema: No Labs: CBC, BMP 07/25/17 06:30 07/25/17 06:30 Problem List - Problems (1) Hyperlipidemia Code(s): E78.5 - HYPERLIPIDEMIA, UNSPECIFIED Qualifiers: Hyperlipidemia type: pure hypercholesterolemia Qualified Code(s): E78.00 - Pure hypercholesterolemia, unspecified; E78.0 - Pure hypercholesterolemia (2) Influenza A Code(s): J10.1 - FLU DUE TO OTH IDENT INFLUENZA VIRUS W OTH RESP MANIFEST (3) Asthma with acute exacerbation Code(s): J45.901 - UNSPECIFIED ASTHMA WITH (ACUTE) EXACERBATION Qualifiers: Asthma severity: mild Asthma persistence: intermittent Qualified Code(s) : J45.21 - Mild intermittent asthma with (acute) exacerbation (4) Atrial fibrillation Code(s): I48.91 - UNSPECIFIED ATRIAL FIBRILLATION Qualifiers: Atrial fibrillation type: paroxysmal Qualified Code(s): I48.0 - Paroxysmal atrial fibrillation (5) COPD (chronic obstructive pulmonary disease) Code(s): J44.9 - CHRONIC OBSTRUCTIVE PULMONARY DISEASE, UNSPECIFIED Qualifiers: COPD type: unspecified COPD Qualified Code(s): J44.9 - Chronic obstructive pulmonary disease, unspecified (6) Chronic alcoholism Code(s): F10.20 - ALCOHOL DEPENDENCE, UNCOMPLICATED Qualifiers: Substance use status: uncomplicated Qualified Code(s): F10.20 - Alcohol dependence, uncomplicated (7) Cocaine dependence Code(s): F14.20 - COCAINE DEPENDENCE, UNCOMPLICATED Qualifiers: Substance use status: uncomplicated Qualified Code(s): F14.20 - Cocaine dependence, uncomplicated Assessment/Plan 07/23/2017 Echo: Normal LV size with hyperkinetic LV fxn, mod-severe eccentric MR, normal biatrial sizes 1. Newly diagnosed atrial fibrillation with RVR, [id number] score probably around 1 or 2 2. History of hypertension - currently normotensive 3. Elevated Hemoglobin A1C suggests diabetes mellitus 4. Bronchial asthma with acute exacerbation/acute bronchitis 5. Polysubstance abuse including ETOH and cocaine 6. Influenza A 7. Hyperlipidemia PLAN: 1. Heparin drip for time being until decision is made regarding halfway use of Coumadin vs. NOAC, he may not be an ideal candidate in view of his social issues. Will have to further assess his stroke risk, remains on ASA 81 qd 2. Continue Lopressor 25 bid, start cardizem gtt for additional rate-control, add Lipitor 20 qd 3. Check TFT 4. Further assessment for diabetes mellitus 5. IV Steroid taper with GI protection, antibiotic coverage, BD, O2 as needed, PF and Tamiflu. 6. 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 Counselling regarding polysubstance abuse
[2017-07-25] MEDS ORDERED: dilTIAZem HCL 50 MG/10 ML - 10 ML VIAL IVPUSH ONE (10:45)
[2017-07-25] MEDS: DILTIAZEM INJECTION 125 MG in DEXTROSE 5%-WATER - 100 ML IVPB SCH (11:24)
[2017-07-25] MEDS ORDERED: INSULIN (NOVOLOG) ASPART 100 UNITS/ML 10ML VIAL ONE (11:57)
[2017-07-25] MEDS ORDERED: PT OWN MED DRAWER 7, Y5N ONE ×2 (12:27→21:24)
--- NOTE | 2017-07-25 12:43 | EKG ---
Test Reason : Blood Pressure : / mmHG Vent. Rate : 147 BPM Atrial Rate : 159 BPM P-R Int : 000 ms QRS Dur : 082 ms QT Int : 270 ms P-R-T Axes : 000 071 -36 degrees QTc Int : 422 ms ATRIAL FIBRILLATION WITH RAPID VENTRICULAR RESPONSE ANTEROSEPTAL INFARCT (CITED ON OR BEFORE 23-JUL-2017) ABNORMAL ECG WHEN COMPARED WITH ECG OF 23-JUL-2017 10:24, NO SIGNIFICANT CHANGE WAS FOUND Confirmed by SENG RAIN MD ([id number]) on 07/25/2017 12:43:08 PM Referred By: Confirmed By:SENG RAIN MD
--- NOTE | 2017-07-25 13:26 | PN ---
Progress Note (short form) - Note Progress Note: Still with some RICARDO, but better. Remains in rapid AFib. Dry cough. No hemoptysis. Intake & Output 07/22/17 07/23/17 07/24/17 07/25/17 23:59 23:59 23:59 23:59 Intake Total 888 658 9103 91 Output Total 200 350 Balance 855 345 4186 -259 Last Vital Signs Temp Pulse Resp BP Pulse Ox 97.9 F 135 H 20 102/76 99 07/25/17 09:05 07/25/17 11:25 07/25/17 11:25 07/25/17 11:25 07/25/17 09:00 Active Medications Albuterol/Ipratropium (Duoneb -) 1 amp NEB QIDR [facility] Last Admin: 07/25/17 11:26 Dose: 1 amp Aspirin (Ecotrin -) 81 mg PO DAILY [facility] Last Admin: 07/25/17 09:17 Dose: 81 mg Atorvastatin Calcium (Lipitor -) 20 mg PO HS [facility] Budesonide/Formoterol Fumarate (Symbicort 80/4.5mcg -) 2 puff IH BID [facility] Heparin Sodium (Porcine) (Heparin -) 1,000 unit IVPUSH PRN PRN PRN Reason: Heparin Heparin Sodium (Porcine) (Heparin -) 5,000 unit IVPUSH PRN PRN PRN Reason: Heparin Heparin Sodium (Porcine) 25, (000 unit/ Sodium Chloride) 500 mls @ 16 mls/hr IV TITR [facility]A; 800 UNIT/HR PRN Reason: Protocol Last Titration: 07/25/17 11:59 Dose: 650 unit/hr, 13 mls/hr Levofloxacin (Levaquin 250 Mg Premixed Ivpb -) 250 mg in 50 mls @ 50 mls/hr IVPB DAILY [facility] Last Admin: 07/25/17 09:18 Dose: 50 mls/hr Diltiazem HCl 125 mg/ Dextrose 125 mls @ 5 mls/hr IVPB TITR [facility]; 5 MG/HR PRN Reason: Protocol Last Admin: 07/25/17 11:24 Dose: 5 mg/hr, 5 mls/hr Insulin Aspart (Novolog Vial Sliding Scale -) 1 vial SQ ACHS [facility] PRN Reason: Protocol Last Admin: 07/25/17 11:59 Dose: 4 units Methylprednisolone Sodium Succinate (Solu-Medrol -) 40 mg IVPUSH BID [facility] Last Admin: 07/25/17 09:17 Dose: 40 mg Metoprolol Tartrate (Lopressor -) 25 mg PO BID [facility] Last Admin: 07/25/17 09:18 Dose: 25 mg Metoprolol Tartrate (Lopressor Injection -) 5 mg IVPUSH Q4H PRN Last Admin: 07/25/17 07:28 Dose: 5 mg Oseltamivir Phosphate (Tamiflu -) 30 mg PO BID [facility] Stop: 07/27/17 21:59 Last Admin: 07/25/17 09:17 Dose: 30 mg Pantoprazole Sodium (Protonix -) 40 mg PO DAILY [facility] Last Admin: 07/25/17 09:17 Dose: 40 mg Eyes: Yes: EOM Intact HENT: Yes: Normocephalic Neck: Yes: Trachea Midline Cardiovascular: Yes: Regular Rate and Rhythm Respiratory: Yes: Scattered rhonchi Gastrointestinal: Yes: Normal Bowel Sounds Extremities: Yes: WNL Labs: Laboratory Results - last 24 hr 07/24/17 07/24/17 07/24/17 16:00 16:35 20:39 WBC RBC Hgb Hct MCV MCH MCHC RDW Plt Count MPV PTT (Actin FS) 58.6 H D Sodium Potassium Chloride Carbon Dioxide Anion Gap BUN Creatinine Creat Clearance w eGFR POC Glucometer 132 245 Random Glucose Calcium Total Bilirubin AST ALT Alkaline Phosphatase Total Protein Albumin 07/25/17 07/25/17 07/25/17 05:49 06:30 06:30 WBC 12.9 H RBC 4.63 Hgb 12.7 Hct 38.7 MCV 83.5 MCH 27.3 MCHC 32.7 RDW 14.2 Plt Count 205 MPV 8.9 PTT (Actin FS) 63.7 H Sodium Potassium Chloride Carbon Dioxide Anion Gap BUN Creatinine Creat Clearance w eGFR POC Glucometer 127 Random Glucose Calcium Total Bilirubin AST ALT Alkaline Phosphatase Total Protein Albumin 07/25/17 07/25/17 06:30 11:22 WBC RBC Hgb Hct MCV MCH MCHC RDW Plt Count MPV PTT (Actin FS) Sodium 140 Potassium 4.8 Chloride 101 Carbon Dioxide 32 Anion Gap 7 L BUN 24 H Creatinine 1.3 Creat Clearance w eGFR 54.73 POC Glucometer 246 Random Glucose 139 H Calcium 9.0 Total Bilirubin 0.3 AST 39 H D ALT 46 D Alkaline Phosphatase 60 Total Protein 5.6 L Albumin 2.8 L Problem List - Problems (1) Asthma with acute exacerbation Code(s): J45.901 - UNSPECIFIED ASTHMA WITH (ACUTE) EXACERBATION (2) COPD (chronic obstructive pulmonary disease) Code(s): J44.9 - CHRONIC OBSTRUCTIVE PULMONARY DISEASE, UNSPECIFIED (3) Chronic alcoholism Code(s): F10.20 - ALCOHOL DEPENDENCE, UNCOMPLICATED (4) Cocaine dependence Code(s): F14.20 - COCAINE DEPENDENCE, UNCOMPLICATED Assessment/Plan ACUTE BRONCHITIS PLAN: RATE CONTROL EVER/LABA/LAMA/ICS SYSTEMIC STEROIDS CURRENTLY AT BID O2 PRN NO SMOKING DR HAN
--- NOTE | 2017-07-25 13:31 | PN ---
Progress Note (short form) - Note Progress Note: Subjective: The patient was seen and examined at the bedside, he denies any chest pain, palpitations. Complains of dyspnea on exertion Current Medications Generic Name Dose Route Start Last Admin Trade Name Freq PRN Reason Stop Dose Admin Albuterol/Ipratropium 1 amp 07/23/17 12:00 07/25/17 11:26 Duoneb - NEB 1 amp QIDR [facility] Administration Aspirin 81 mg 07/24/17 10:00 07/25/17 09:17 Ecotrin - PO 81 mg DAILY [facility] Administration Atorvastatin Calcium 20 mg 07/25/17 22:00 Lipitor - PO HS [facility]IKA Budesonide/Formoterol Fumarate 2 puff 07/25/17 13:24 Symbicort 80/4.5mcg - IH BID [facility] Heparin Sodium (Porcine) 1,000 unit 07/23/17 15:47 Heparin - IVPUSH PRN PRN Heparin Heparin Sodium (Porcine) 5,000 unit 07/23/17 15:47 Heparin - IVPUSH PRN PRN Heparin Heparin Sodium (Porcine) 25, 500 mls @ 16 mls/hr 07/23/17 15:47 07/25/17 11: 59 000 unit/ Sodium Chloride IV 650 unit/hr TITR ZULEIKA 13 mls/hr Protocol Titration 800 UNIT/HR Levofloxacin 250 mg in 50 mls @ 50 mls/hr 07/24/17 12:45 07/25/17 09:18 Levaquin 250 Mg Premixed Ivpb - IVPB 50 mls/hr DAILY [facility] Administration Diltiazem HCl 125 mg/ Dextrose 125 mls @ 5 mls/hr 07/25/17 11:00 07/25/17 11: 24 IVPB 5 mg/hr TITR ZULEIKA 5 mls/hr Protocol Administration 5 MG/HR Insulin Aspart 1 vial 07/23/17 16:30 07/25/17 11:59 Novolog Vial Sliding Scale - SQ 4 units ACHS [facility] Administration Protocol Methylprednisolone Sodium Succinate 40 mg 07/25/17 10:00 07/25/17 09:17 Solu-Medrol - IVPUSH 40 mg BID [facility] Administration Metoprolol Tartrate 25 mg 07/24/17 20:30 07/25/17 09:18 Lopressor - PO 25 mg BID [facility] Administration Metoprolol Tartrate 5 mg 07/25/17 07:27 07/25/17 07:28 Lopressor Injection - IVPUSH 5 mg Q4H PRN Administration Oseltamivir Phosphate 30 mg 07/23/17 22:00 07/25/17 09:17 Tamiflu - PO 07/27/17 21:59 30 mg BID [facility] Administration Pantoprazole Sodium 40 mg 07/24/17 10:00 07/25/17 09:17 Protonix - PO 40 mg DAILY [facility] Administration Objective: Vital Signs Period Temp Pulse Resp BP Sys/Vaz Pulse Ox Last 24 Hr 97.1 F-98.7 F 100-155 18-24 95-134/48-76 99-99 Physical Exam: General: NAD, A&Ox3 Lungs: CTA bilaterally Heart: Irregular, S1S2 Abd: Soft, non-tender, non-distended. Normoactive bowel sounds Ext: Warm, well-perfused. 2+ DP/PT bilaterally Neuro: CN 2-12 intact CBCD WBC 12.9 K/mm3 (4.0-10.0) H 07/25/17 06:30 RBC 4.63 M/mm3 (4.00-5.60) 07/25/17 06:30 Hgb 12.7 GM/dL (11.7-16.9) 07/25/17 06:30 Hct 38.7 % (35.4-49) 07/25/17 06:30 MCV 83.5 fl (80-96) 07/25/17 06:30 MCHC 32.7 g/dl (32.0-35.9) 07/25/17 06:30 RDW 14.2 % (11.9-15.9) 07/25/17 06:30 Plt Count 205 K/MM3 (134-434) 07/25/17 06:30 MPV 8.9 fl (7.5-11.1) 07/25/17 06:30 CMP Sodium 140 mmol/L (136-145) 07/25/17 06:30 Potassium 4.8 mmol/L (3.5-5.1) 07/25/17 06:30 Chloride 101 mmol/L (98-107) 07/25/17 06:30 Carbon Dioxide 32 mmol/L (21-32) 07/25/17 06:30 Anion Gap 7 (8-16) L 07/25/17 06:30 BUN 24 mg/dL (7-18) H 07/25/17 06:30 Creatinine 1.3 mg/dL (0.7-1.3) 07/25/17 06:30 Creat Clearance w eGFR 54.73 (>60) 07/25/17 06:30 Random Glucose 139 mg/dL (74-106) H 07/25/17 06:30 Calcium 9.0 mg/dL (8.5-10.1) 07/25/17 06:30 Total Bilirubin 0.3 mg/dL (0.2-1.0) 07/25/17 06:30 AST 39 U/L (15-37) H D 07/25/17 06:30 ALT 46 U/L (12-78) D 07/25/17 06:30 Alkaline Phosphatase 60 U/L (45-117) 07/25/17 06:30 Total Protein 5.6 g/dl (6.4-8.2) L 07/25/17 06:30 Albumin 2.8 g/dl (3.4-5.0) L 07/25/17 06:30 CARDIAC ENZYMES Troponin I < 0.02 ng/ml (0.00-0.05) 07/21/17 19:58 Microbiology 07/22/17 20:30 Nasopharyngeal Swab Influenza Types A,B Antigen (SEPIDEH) - Final 07/22/17 20:30 Nasopharyngeal Swab - Final Assessment: This is a 71 year old male with PMHx of asthma, alcohol/cocaine abuse (denies current use), cigarette smoker, who presented to the ED with shortness of breath and wheezing. Plan: 1) New onset a.fib with RVR - Continue Heparin gtt for now until decision regarding care home use Coumadin vs. NOAC - Lopressor BID - Cardizem gtt added - Lipitor added - F/u TSH - Appreciate cardiology consult 2) Acute asthma exacerbation - Duonebs - Solu-medrol 40mg IVP bid - Resume symbicort - O2 via nc prn - Daily peak flow - On Levaquin - Appreciate pulmonary consult 3) Influenza A positive - Continue Tamiflu 4) F/E/N: - Monitor electrolytes - Regular diet 5) Prophylaxis: - On Heparin gtt - OOB ambulating 6) Dispo: - Requires continued inpatient care CODE STATUS: FULL CODE Visit type - Emergency Visit Emergency Visit: Yes ED Registration Date: 07/20/17 Care time: The patient presented to the Emergency Department on the above date and was hospitalized for further evaluation of their emergent condition. - New Patient This patient is new to me today: No - Critical Care Critical Care patient: No
[2017-07-25] MEDS: HEPARIN - 25,000 UNIT in SODIUM CHLORIDE 495 ML IV SCH (17:11)
[2017-07-25] MEDS: ATORVASTATIN CA 20 MG TABLET (FP) PO SCH (22:24)
[2017-07-26] MEDS: DILTIAZEM INJECTION 125 MG in DEXTROSE 5%-WATER - 100 ML IVPB SCH ×2 (03:26→11:28)
[2017-07-26] MEDS: INSULIN SLIDING SCALE (NOVOLOG) 1 VIAL SQ SCH ×4 (06:43→21:53)
[2017-07-26] MEDS: ALBUTEROL SO4 2.5/IPRATROPIUM 0.5 INH SOL 3 ML VIAL.NEB. NEB SCH ×3 (06:46→18:45)
[2017-07-26 07:42] LABS: HEMATOCRIT 35.8 % (35.4-49); HEMOGLOBIN 11.9 GM/dL (11.7-16.9); MCH 27.7 pg (25.7-33.7); MCHC 33.3 g/dl (32.0-35.9); MEAN CELL VOLUME 83.3 fl (80-96); MEAN PLT VOLUME 9.6 fl (7.5-11.1); PLATELET COUNT 193 K/MM3 (134-434); RBC 4.29 M/mm3 (4.00-5.60); RDW 14.5 % (11.9-15.9); WHITE BLOOD COUNT 14.1 K/mm3 (4.0-10.0)
[2017-07-26 08:35] LABS: CHLORIDE 101 mmol/L (98-107); SODIUM 140 mmol/L (136-145)
[2017-07-26 08:45] LABS: ALBUMIN 2.5 g/dl (3.4-5.0); ALK PHOS 50 U/L (45-117); ANION GAP 9 (8-16); BILIRUBIN,TOTAL 0.4 mg/dL (0.2-1.0); BLOOD UREA NITROGEN 25 mg/dL (7-18); CALCIUM 8.4 mg/dL (8.5-10.1); CO2 30 mmol/L (21-32); CREATININE 1.2 mg/dL (0.7-1.3); GLUCOSE,RANDOM 133 mg/dL (74-106); SGOT/AST 18 U/L (15-37); SGPT/ALT 36 U/L (12-78)
[2017-07-26] MEDS: BUDESONIDE/FORMETEROL FUMARATE 80/4.5 mcg INHALER IH SCH ×2 (09:20→21:41)
[2017-07-26] MEDS: methylPREDNISolone NA SUCC 40 MG/1 ML VIAL IVPUSH SCH ×2 (09:20→21:41)
[2017-07-26] MEDS: METOPROLOL TARTRATE 25 MG TABLET (FP) PO SCH ×2 (09:20→21:41)
[2017-07-26] MEDS: PANTOPRAZOLE 40 MG TABLET (FP) PO SCH (09:20)
[2017-07-26] MEDS: ASPIRIN COATED 81 MG TABLET.EC PO SCH (09:20)
[2017-07-26] MEDS: OSELTAMIVIR PHOSPHATE 30 MG CAPSULE PO SCH ×2 (09:21→21:41)
--- NOTE | 2017-07-26 09:34 | PN ---
Progress Note, Physician History of Present Illness: Dyspnea slowly resolving, denies chest pain, palpitations, near syncope, now in rate-controlled afib on cardizem gtt. - Current Medication List Current Medications: Active Medications Albuterol/Ipratropium (Duoneb -) 1 amp NEB QIDR [facility] Last Admin: 07/26/17 06:46 Dose: 1 amp Aspirin (Ecotrin -) 81 mg PO DAILY [facility] Last Admin: 07/26/17 09:20 Dose: 81 mg Atorvastatin Calcium (Lipitor -) 20 mg PO HS [facility] Last Admin: 07/25/17 22:24 Dose: 20 mg Budesonide/Formoterol Fumarate (Symbicort 80/4.5mcg -) 2 puff IH BID [facility] Last Admin: 07/26/17 09:20 Dose: 2 puff Heparin Sodium (Porcine) (Heparin -) 1,000 unit IVPUSH PRN PRN PRN Reason: Heparin Heparin Sodium (Porcine) (Heparin -) 5,000 unit IVPUSH PRN PRN PRN Reason: Heparin Heparin Sodium (Porcine) 25, (000 unit/ Sodium Chloride) 500 mls @ 16 mls/hr IV TITR ZULEIKA; 800 UNIT/HR PRN Reason: Protocol Last Titration: 07/26/17 09:22 Dose: 750 unit/hr, 15 mls/hr Levofloxacin (Levaquin 250 Mg Premixed Ivpb -) 250 mg in 50 mls @ 50 mls/hr IVPB DAILY [facility] Last Admin: 07/26/17 09:20 Dose: 50 mls/hr Diltiazem HCl 125 mg/ Dextrose 125 mls @ 5 mls/hr IVPB TITR ZULEIKA; 5 MG/HR PRN Reason: Protocol Last Admin: 07/26/17 03:26 Dose: 7.5 mg/hr, 7.5 mls/hr Insulin Aspart (Novolog Vial Sliding Scale -) 1 vial SQ ACHS [facility] PRN Reason: Protocol Last Admin: 07/26/17 06:43 Dose: 2 units Methylprednisolone Sodium Succinate (Solu-Medrol -) 40 mg IVPUSH BID [facility] Last Admin: 07/26/17 09:20 Dose: 40 mg Metoprolol Tartrate (Lopressor -) 25 mg PO BID [facility] Last Admin: 07/26/17 09:20 Dose: 25 mg Metoprolol Tartrate (Lopressor Injection -) 5 mg IVPUSH Q4H PRN Last Admin: 07/25/17 07:28 Dose: 5 mg Oseltamivir Phosphate (Tamiflu -) 30 mg PO BID [facility] Stop: 07/27/17 21:59 Last Admin: 07/26/17 09:21 Dose: 30 mg Pantoprazole Sodium (Protonix -) 40 mg PO DAILY [facility] Last Admin: 07/26/17 09:20 Dose: 40 mg - Objective Vital Signs: Vital Signs Temperature 98.1 F 07/26/17 08:07 Pulse Rate 77 07/26/17 08:07 Respiratory Rate 20 07/26/17 08:07 Blood Pressure 115/69 07/26/17 08:07 O2 Sat by Pulse Oximetry (%) 100 07/25/17 21:00 Constitutional: Yes: No Distress, Calm, Thin Neck: Yes: Supple Cardiovascular: Yes: Tachycardia, Pulse Irregular Respiratory: Yes: Regular, Diminished, On Nasal O2 Gastrointestinal: Yes: Normal Bowel Sounds, Soft Edema: No Labs: CBC, BMP 07/26/17 05:05 07/26/17 05:05 Problem List - Problems (1) Hyperlipidemia Code(s): E78.5 - HYPERLIPIDEMIA, UNSPECIFIED Qualifiers: Hyperlipidemia type: pure hypercholesterolemia Qualified Code(s): E78.00 - Pure hypercholesterolemia, unspecified; E78.0 - Pure hypercholesterolemia (2) Influenza A Code(s): J10.1 - FLU DUE TO OTH IDENT INFLUENZA VIRUS W OTH RESP MANIFEST (3) Asthma with acute exacerbation Code(s): J45.901 - UNSPECIFIED ASTHMA WITH (ACUTE) EXACERBATION Qualifiers: Asthma severity: mild Asthma persistence: intermittent Qualified Code(s) : J45.21 - Mild intermittent asthma with (acute) exacerbation (4) Atrial fibrillation Code(s): I48.91 - UNSPECIFIED ATRIAL FIBRILLATION Qualifiers: Atrial fibrillation type: paroxysmal Qualified Code(s): I48.0 - Paroxysmal atrial fibrillation (5) COPD (chronic obstructive pulmonary disease) Code(s): J44.9 - CHRONIC OBSTRUCTIVE PULMONARY DISEASE, UNSPECIFIED Qualifiers: COPD type: unspecified COPD Qualified Code(s): J44.9 - Chronic obstructive pulmonary disease, unspecified (6) Chronic alcoholism Code(s): F10.20 - ALCOHOL DEPENDENCE, UNCOMPLICATED Qualifiers: Substance use status: uncomplicated Qualified Code(s): F10.20 - Alcohol dependence, uncomplicated (7) Cocaine dependence Code(s): F14.20 - COCAINE DEPENDENCE, UNCOMPLICATED Qualifiers: Substance use status: uncomplicated Qualified Code(s): F14.20 - Cocaine dependence, uncomplicated Assessment/Plan 07/23/2017 Echo: Normal LV size with hyperkinetic LV fxn, mod-severe eccentric MR, normal biatrial sizes 1. Newly diagnosed atrial fibrillation with RVR, [id number] score probably around 1 or 2 2. History of hypertension - currently normotensive 3. Elevated Hemoglobin A1C suggests diabetes mellitus 4. Bronchial asthma with acute exacerbation/acute bronchitis 5. Polysubstance abuse including ETOH and cocaine 6. Influenza A 7. Hyperlipidemia PLAN: 1. Change Heparin drip to Eliquis 5 bid while in-house, he may not be an ideal long-term candidate in view of his social issues. D/c ASA 81 qd. 2. Increase Lopressor 50 bid, wean off cardizem gtt, continue Lipitor 20 qd 3. IV Steroid taper with GI protection, antibiotic coverage, BD, O2 as needed, PF and Tamiflu. 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 Counselling regarding polysubstance abuse
[2017-07-26] MEDS: APIXABAN 5 MG TABLET PO SCH ×2 (11:36→21:41)
--- NOTE | 2017-07-26 11:53 | PN ---
Progress Note, Physician History of Present Illness: PULMONARY ALERT,FEELING BETTER,LESS DYSPNEIC,-CP,-PALPITATIONS - Current Medication List Current Medications: Active Medications Albuterol/Ipratropium (Duoneb -) 1 amp NEB QIDR [facility] Last Admin: 07/26/17 06:46 Dose: 1 amp Apixaban (Eliquis -) 5 mg PO BID [facility] Last Admin: 07/26/17 11:36 Dose: 5 mg Atorvastatin Calcium (Lipitor -) 20 mg PO HS [facility] Last Admin: 07/25/17 22:24 Dose: 20 mg Budesonide/Formoterol Fumarate (Symbicort 80/4.5mcg -) 2 puff IH BID [facility] Last Admin: 07/26/17 09:20 Dose: 2 puff Levofloxacin (Levaquin 250 Mg Premixed Ivpb -) 250 mg in 50 mls @ 50 mls/hr IVPB DAILY [facility] Last Admin: 07/26/17 09:20 Dose: 50 mls/hr Diltiazem HCl 125 mg/ Dextrose 125 mls @ 5 mls/hr IVPB TITR ZULEIKA; 5 MG/HR PRN Reason: Protocol Last Admin: 07/26/17 11:28 Dose: Not Given Insulin Aspart (Novolog Vial Sliding Scale -) 1 vial SQ ACHS [facility] PRN Reason: Protocol Last Admin: 07/26/17 11:37 Dose: 4 units Methylprednisolone Sodium Succinate (Solu-Medrol -) 40 mg IVPUSH BID [facility] Last Admin: 07/26/17 09:20 Dose: 40 mg Metoprolol Tartrate (Lopressor Injection -) 5 mg IVPUSH Q4H PRN Last Admin: 07/25/17 07:28 Dose: 5 mg Metoprolol Tartrate (Lopressor -) 50 mg PO BID [facility] Oseltamivir Phosphate (Tamiflu -) 30 mg PO BID [facility] Stop: 07/27/17 21:59 Last Admin: 07/26/17 09:21 Dose: 30 mg Pantoprazole Sodium (Protonix -) 40 mg PO DAILY [facility] Last Admin: 07/26/17 09:20 Dose: 40 mg - Objective Vital Signs: Vital Signs Temperature 98.1 F 07/26/17 08:07 Pulse Rate 77 07/26/17 08:07 Respiratory Rate 20 07/26/17 08:07 Blood Pressure 115/69 07/26/17 08:07 O2 Sat by Pulse Oximetry (%) 100 07/26/17 08:00 Constitutional: Yes: Calm, Thin Eyes: Yes: WNL HENT: Yes: WNL Neck: Yes: WNL Cardiovascular: Yes: Pulse Irregular, S1, S2 Respiratory: Yes: Wheezes (FEW WHEEZES) Gastrointestinal: Yes: Normal Bowel Sounds, Soft Extremities: Yes: WNL Edema: No Labs: CBC, BMP 07/26/17 05:05 07/26/17 05:05 Problem List - Problems (1) Atrial fibrillation Code(s): I48.91 - UNSPECIFIED ATRIAL FIBRILLATION Qualifiers: Atrial fibrillation type: paroxysmal Qualified Code(s): I48.0 - Paroxysmal atrial fibrillation (2) Influenza A Code(s): J10.1 - FLU DUE TO OTH IDENT INFLUENZA VIRUS W OTH RESP MANIFEST Assessment/Plan Problem List - Problems (1) Asthma with acute exacerbation Code(s): J45.901 - UNSPECIFIED ASTHMA WITH (ACUTE) EXACERBATION (2) COPD (chronic obstructive pulmonary disease) Code(s): J44.9 - CHRONIC OBSTRUCTIVE PULMONARY DISEASE, UNSPECIFIED (3) Chronic alcoholism Code(s): F10.20 - ALCOHOL DEPENDENCE, UNCOMPLICATED (4) Cocaine dependence Code(s): F14.20 - COCAINE DEPENDENCE, UNCOMPLICATED Assessment/Plan ACUTE BRONCHITIS INFLUENZA A RAPID AFIB PLAN: RATE CONTROL CARDIZEM EVER/LABA/LAMA/ICS STEROID TAPER O2 PRN DAILY PEAK FLOW TAMIFLU DR COX
--- NOTE | 2017-07-26 16:31 | PN ---
Progress Note (short form) - Note Progress Note: Subjective: The patient was seen and examined at the bedside, he has no complaints at this time Increased Lopressor to 50mg po bid today Wean Cardizem gtt Current Medications Generic Name Dose Route Start Last Admin Trade Name Freq PRN Reason Stop Dose Admin Albuterol/Ipratropium 1 amp 07/23/17 12:00 07/26/17 12:11 Duoneb - NEB 1 amp QIDR [facility] Administration Apixaban 5 mg 07/26/17 10:15 07/26/17 11:36 Eliquis - PO 5 mg BID [facility]IKA Administration Atorvastatin Calcium 20 mg 07/25/17 22:00 07/25/17 22:24 Lipitor - PO 20 mg HS [facility]IKA Administration Budesonide/Formoterol Fumarate 2 puff 07/25/17 13:24 07/26/17 09:20 Symbicort 80/4.5mcg - IH 2 puff BID [facility]IKA Administration Levofloxacin 250 mg in 50 mls @ 50 mls/hr 07/24/17 12:45 07/26/17 09:20 Levaquin 250 Mg Premixed Ivpb - IVPB 50 mls/hr DAILY [facility] Administration Diltiazem HCl 125 mg/ Dextrose 125 mls @ 5 mls/hr 07/25/17 11:00 07/26/17 11: 28 IVPB Not Given TITR ZULEIKA Protocol 5 MG/HR Insulin Aspart 1 vial 07/23/17 16:30 07/26/17 11:37 Novolog Vial Sliding Scale - SQ 4 units ACHS ZULEIKA Administration Protocol Methylprednisolone Sodium Succinate 40 mg 07/25/17 10:00 07/26/17 09:20 Solu-Medrol - IVPUSH 40 mg BID [facility] Administration Metoprolol Tartrate 5 mg 07/25/17 07:27 07/25/17 07:28 Lopressor Injection - IVPUSH 5 mg Q4H PRN Administration Metoprolol Tartrate 50 mg 07/26/17 10:11 Lopressor - PO BID [facility] Oseltamivir Phosphate 30 mg 07/23/17 22:00 07/26/17 09:21 Tamiflu - PO 07/27/17 21:59 30 mg BID [facility]IKA Administration Pantoprazole Sodium 40 mg 07/24/17 10:00 07/26/17 09:20 Protonix - PO 40 mg DAILY [facility] Administration Objective: Vital Signs Period Temp Pulse Resp BP Sys/Vaz Pulse Ox Last 24 Hr 98 F-98.4 F 77-150 20-20 91-115/56-75 100-100 Physical Exam: General: NAD, A&Ox3 Lungs: CTA bilaterally Heart: Irregular, S1S2 Abd: Soft, non-tender, non-distended. Normoactive bowel sounds Ext: Warm, well-perfused. 2+ DP/PT bilaterally Neuro: No focal deficits CBCD WBC 14.1 K/mm3 (4.0-10.0) H 07/26/17 05:05 RBC 4.29 M/mm3 (4.00-5.60) 07/26/17 05:05 Hgb 11.9 GM/dL (11.7-16.9) 07/26/17 05:05 Hct 35.8 % (35.4-49) 07/26/17 05:05 MCV 83.3 fl (80-96) 07/26/17 05:05 MCHC 33.3 g/dl (32.0-35.9) 07/26/17 05:05 RDW 14.5 % (11.9-15.9) 07/26/17 05:05 Plt Count 193 K/MM3 (134-434) 07/26/17 05:05 MPV 9.6 fl (7.5-11.1) 07/26/17 05:05 CMP Sodium 140 mmol/L (136-145) 07/26/17 05:05 Potassium 5.0 mmol/L (3.5-5.1) 07/26/17 05:05 Chloride 101 mmol/L (98-107) 07/26/17 05:05 Carbon Dioxide 30 mmol/L (21-32) 07/26/17 05:05 Anion Gap 9 (8-16) 07/26/17 05:05 BUN 25 mg/dL (7-18) H 07/26/17 05:05 Creatinine 1.2 mg/dL (0.7-1.3) 07/26/17 05:05 Creat Clearance w eGFR > 60 (>60) 07/26/17 05:05 Random Glucose 133 mg/dL (74-106) H 07/26/17 05:05 Calcium 8.4 mg/dL (8.5-10.1) L 07/26/17 05:05 Total Bilirubin 0.4 mg/dL (0.2-1.0) D 07/26/17 05:05 AST 18 U/L (15-37) D 07/26/17 05:05 ALT 36 U/L (12-78) D 07/26/17 05:05 Alkaline Phosphatase 50 U/L (45-117) 07/26/17 05:05 Total Protein 5.0 g/dl (6.4-8.2) L 07/26/17 05:05 Albumin 2.5 g/dl (3.4-5.0) L 07/26/17 05:05 CARDIAC ENZYMES Troponin I < 0.02 ng/ml (0.00-0.05) 07/21/17 19:58 Microbiology 07/22/17 20:30 Nasopharyngeal Swab Influenza Types A,B Antigen (SEPIDEH) - Final 07/22/17 20:30 Nasopharyngeal Swab - Final Assessment: This is a 71 year old male with PMHx of asthma, alcohol/cocaine abuse (denies current use), cigarette smoker, who presented to the ED with shortness of breath and wheezing. Plan: 1) New onset a.fib with RVR - Switch to Eliquis today, d/c ASA - Increased Lopressor to 50mg po bid - Wean off Cardizem gtt - Continue Lipitor - TSH wnl - Appreciate cardiology consult 2) Acute asthma exacerbation - Duonebs - Solu-medrol 40mg IVP bid - Continue symbicort - O2 via nc prn - Daily peak flow - On Levaquin - Appreciate pulmonary consult 3) Influenza A positive - Continue Tamiflu 4) F/E/N: - Monitor electrolytes - Regular diet 5) Prophylaxis: - On Eliquis - OOB ambulating 6) Dispo: - Requires continued inpatient care CODE STATUS: FULL CODE Visit type - Emergency Visit Emergency Visit: Yes ED Registration Date: 07/20/17 Care time: The patient presented to the Emergency Department on the above date and was hospitalized for further evaluation of their emergent condition. - New Patient This patient is new to me today: No - Critical Care Critical Care patient: No
[2017-07-26] MEDS ORDERED: PT OWN MED DRAWER 7, Y5N ONE (21:35)
[2017-07-26] MEDS: ATORVASTATIN CA 20 MG TABLET (FP) PO SCH (21:41)
[2017-07-27] MEDS: ALBUTEROL SO4 2.5/IPRATROPIUM 0.5 INH SOL 3 ML VIAL.NEB. NEB SCH ×4 (01:57→19:35)
[2017-07-27] MEDS: INSULIN SLIDING SCALE (NOVOLOG) 1 VIAL SQ SCH ×4 (06:41→22:45)
[2017-07-27 08:06] LABS: BASO % 0.1 % (0-2.0); EOS % 0.3 % (0-4.5); HEMATOCRIT 37.2 % (35.4-49); LYMPH % 2.3 % (8-40); MCH 27.2 pg (25.7-33.7); MCHC 32.4 g/dl (32.0-35.9); MEAN PLT VOLUME 9.2 fl (7.5-11.1); MONO % 3.1 % (3.8-10.2); NEUT % 94.2 % (42.8-82.8); PLATELET COUNT 204 K/MM3 (134-434); RBC 4.42 M/mm3 (4.00-5.60); RDW 14.6 % (11.9-15.9); WHITE BLOOD COUNT 14.2 K/mm3 (4.0-10.0)
--- NOTE | 2017-07-27 10:13 | PN ---
Physical Exam: SUBJECTIVE: Patient seen and examined OBJECTIVE: Vital Signs Period Temp Pulse Resp BP Sys/Vaz Pulse Ox Last 24 Hr 98.1 F-98.6 F 89-131 19-20 106-114/57-84 100 GENERAL: The patient is awake, alert, and fully oriented, in no acute distress. HEAD: Normal with no signs of trauma. EYES: PERRL, extraocular movements intact, sclera anicteric, conjunctiva clear. No ptosis. ENT: Ears normal, nares patent, oropharynx clear without exudates, moist mucous membranes. NECK: Trachea midline, full range of motion, supple. LUNGS: Breath sounds equal, clear to auscultation bilaterally, no wheezes, no crackles, no accessory muscle use. HEART: Regular rate and rhythm, S1, S2 without murmur, rub or gallop. ABDOMEN: Soft, nontender, nondistended, normoactive bowel sounds, no guarding, no rebound, no hepatosplenomegaly, no masses. EXTREMITIES: 2+ pulses, warm, well-perfused, no edema. NEUROLOGICAL: Cranial nerves II through XII grossly intact. Normal speech, gait not observed. PSYCH: Normal mood, normal affect. SKIN: Warm, dry, normal turgor, no rashes or lesions noted Laboratory Results - last 24 hr 07/26/17 07/26/17 07/26/17 11:35 17:18 21:52 WBC RBC Hgb Hct MCV MCH MCHC RDW Plt Count MPV Neutrophils % Lymphocytes % Monocytes % Eosinophils % Basophils % POC Glucometer 239 178 220 07/27/17 07/27/17 05:48 06:32 WBC 14.2 H RBC 4.42 Hgb 12.0 Hct 37.2 MCV 84.0 MCH 27.2 MCHC 32.4 RDW 14.6 Plt Count 204 MPV 9.2 Neutrophils % 94.2 H Lymphocytes % 2.3 L D Monocytes % 3.1 L Eosinophils % 0.3 D Basophils % 0.1 POC Glucometer 184 Active Medications Generic Name Dose Route Start Last Admin Trade Name Freq PRN Reason Stop Dose Admin Albuterol/Ipratropium 1 amp 07/23/17 12:00 07/27/17 06:07 Duoneb - NEB 1 amp QIDR ZULEIKA Administration Apixaban 5 mg 07/26/17 10:15 07/26/17 21:41 Eliquis - PO 5 mg BID ZULEIKA Administration Atorvastatin Calcium 20 mg 07/25/17 22:00 07/26/17 21:41 Lipitor - PO 20 mg HS ZULEIKA Administration Budesonide/Formoterol Fumarate 2 puff 07/25/17 13:24 07/26/17 21:41 Symbicort 80/4.5mcg - IH 2 puff BID ZULEIKA Administration Levofloxacin 250 mg in 50 mls @ 50 mls/hr 07/24/17 12:45 07/26/17 09:20 Levaquin 250 Mg Premixed Ivpb - IVPB 50 mls/hr DAILY ZULEIKA Administration Diltiazem HCl 125 mg/ Dextrose 125 mls @ 5 mls/hr 07/25/17 11:00 07/26/17 17: 49 IVPB 10 mg/hr TITR ZULEIKA 10 mls/hr Protocol Titration 5 MG/HR Insulin Aspart 1 vial 07/23/17 16:30 07/27/17 06:41 Novolog Vial Sliding Scale - SQ 2 units ACHS ZULEIKA Administration Protocol Methylprednisolone Sodium Succinate 40 mg 07/25/17 10:00 07/26/17 21:41 Solu-Medrol - IVPUSH 40 mg BID ZULEIKA Administration Metoprolol Tartrate 5 mg 07/25/17 07:27 07/25/17 07:28 Lopressor Injection - IVPUSH 5 mg Q4H PRN Administration Metoprolol Tartrate 50 mg 07/26/17 10:11 07/26/17 21:41 Lopressor - PO 50 mg BID ZULEIKA Administration Oseltamivir Phosphate 30 mg 07/23/17 22:00 07/26/17 21:41 Tamiflu - PO 07/27/17 21:59 30 mg BID ZULEIKA Administration Pantoprazole Sodium 40 mg 07/24/17 10:00 07/26/17 09:20 Protonix - PO 40 mg DAILY ZULEIKA Administration ASSESSMENT/PLAN:
--- NOTE | 2017-07-27 10:22 | PN ---
Progress Note, Physician History of Present Illness: pulmonary alert,nad,-cp,-sob,remains in rapid a-fib - Current Medication List Current Medications: Active Medications Albuterol/Ipratropium (Duoneb -) 1 amp NEB QIDR [facility] Last Admin: 07/27/17 06:07 Dose: 1 amp Apixaban (Eliquis -) 5 mg PO BID [facility] Last Admin: 07/26/17 21:41 Dose: 5 mg Atorvastatin Calcium (Lipitor -) 20 mg PO HS [facility] Last Admin: 07/26/17 21:41 Dose: 20 mg Budesonide/Formoterol Fumarate (Symbicort 80/4.5mcg -) 2 puff IH BID [facility] Last Admin: 07/26/17 21:41 Dose: 2 puff Levofloxacin (Levaquin 250 Mg Premixed Ivpb -) 250 mg in 50 mls @ 50 mls/hr IVPB DAILY [facility] Last Admin: 07/26/17 09:20 Dose: 50 mls/hr Diltiazem HCl 125 mg/ Dextrose 125 mls @ 5 mls/hr IVPB TITR ZULEIKA; 5 MG/HR PRN Reason: Protocol Last Titration: 07/26/17 17:49 Dose: 10 mg/hr, 10 mls/hr Insulin Aspart (Novolog Vial Sliding Scale -) 1 vial SQ ACHS [facility] PRN Reason: Protocol Last Admin: 07/27/17 06:41 Dose: 2 units Methylprednisolone Sodium Succinate (Solu-Medrol -) 40 mg IVPUSH BID [facility] Last Admin: 07/26/17 21:41 Dose: 40 mg Metoprolol Tartrate (Lopressor Injection -) 5 mg IVPUSH Q4H PRN Last Admin: 07/25/17 07:28 Dose: 5 mg Metoprolol Tartrate (Lopressor -) 50 mg PO BID [facility] Last Admin: 07/26/17 21:41 Dose: 50 mg Oseltamivir Phosphate (Tamiflu -) 30 mg PO BID [facility] Stop: 07/27/17 21:59 Last Admin: 07/26/17 21:41 Dose: 30 mg Pantoprazole Sodium (Protonix -) 40 mg PO DAILY [facility] Last Admin: 07/26/17 09:20 Dose: 40 mg - Objective Vital Signs: Vital Signs Temperature 98.2 F 07/27/17 05:22 Pulse Rate 89 07/27/17 05:22 Respiratory Rate 20 12/23/17 05:22 Blood Pressure 114/63 07/27/17 05:22 O2 Sat by Pulse Oximetry (%) 100 07/26/17 20:47 Constitutional: Yes: Calm, Thin Eyes: Yes: WNL HENT: Yes: WNL Neck: Yes: WNL Cardiovascular: Yes: Tachycardia, Pulse Irregular, S1, S2 Respiratory: Yes: CTA Bilaterally Gastrointestinal: Yes: Normal Bowel Sounds, Soft Extremities: Yes: WNL Edema: No Labs: CBC, BMP 07/27/17 05:48 07/26/17 05:05 Problem List - Problems (1) Atrial fibrillation Code(s): I48.91 - UNSPECIFIED ATRIAL FIBRILLATION Qualifiers: Atrial fibrillation type: paroxysmal Qualified Code(s): I48.0 - Paroxysmal atrial fibrillation (2) Influenza A Code(s): J10.1 - FLU DUE TO OTH IDENT INFLUENZA VIRUS W OTH RESP MANIFEST Assessment/Plan Problem List - Problems (1) Asthma with acute exacerbation Code(s): J45.901 - UNSPECIFIED ASTHMA WITH (ACUTE) EXACERBATION (2) COPD (chronic obstructive pulmonary disease) Code(s): J44.9 - CHRONIC OBSTRUCTIVE PULMONARY DISEASE, UNSPECIFIED (3) Chronic alcoholism Code(s): F10.20 - ALCOHOL DEPENDENCE, UNCOMPLICATED (4) Cocaine dependence Code(s): F14.20 - COCAINE DEPENDENCE, UNCOMPLICATED Assessment/Plan ACUTE BRONCHITIS INFLUENZA A RAPID AFIB PLAN: RATE CONTROL CARDIZEM EVER/LABA/LAMA/ICS STEROID TAPER O2 PRN DAILY PEAK FLOW TAMIFLU DR COX
[2017-07-27] MEDS: METOPROLOL TARTRATE 25 MG TABLET (FP) PO SCH (10:33)
[2017-07-27] MEDS: APIXABAN 5 MG TABLET PO SCH ×2 (10:33→22:46)
[2017-07-27] MEDS: PANTOPRAZOLE 40 MG TABLET (FP) PO SCH (10:33)
[2017-07-27] MEDS: BUDESONIDE/FORMETEROL FUMARATE 80/4.5 mcg INHALER IH SCH ×2 (10:36→22:47)
[2017-07-27] MEDS: methylPREDNISolone NA SUCC 40 MG/1 ML VIAL IVPUSH SCH (10:36)
[2017-07-27] MEDS: OSELTAMIVIR PHOSPHATE 30 MG CAPSULE PO SCH (10:37)
--- NOTE | 2017-07-27 11:07 | PN ---
Progress Note, Physician History of Present Illness: Dyspnea slowly resolving, denies chest pain, palpitations, near syncope, now in rate-controlled afib on cardizem gtt. - Current Medication List Current Medications: Active Medications Albuterol/Ipratropium (Duoneb -) 1 amp NEB QIDR [facility] Last Admin: 07/27/17 06:07 Dose: 1 amp Apixaban (Eliquis -) 5 mg PO BID [facility] Last Admin: 07/27/17 10:33 Dose: 5 mg Atorvastatin Calcium (Lipitor -) 20 mg PO HS [facility] Last Admin: 07/26/17 21:41 Dose: 20 mg Budesonide/Formoterol Fumarate (Symbicort 80/4.5mcg -) 2 puff IH BID [facility] Last Admin: 07/27/17 10:36 Dose: 2 puff Levofloxacin (Levaquin 250 Mg Premixed Ivpb -) 250 mg in 50 mls @ 50 mls/hr IVPB DAILY [facility] Last Admin: 07/27/17 10:35 Dose: 50 mls/hr Diltiazem HCl 125 mg/ Dextrose 125 mls @ 5 mls/hr IVPB TITR ZULEIKA; 5 MG/HR PRN Reason: Protocol Last Titration: 07/26/17 17:49 Dose: 10 mg/hr, 10 mls/hr Insulin Aspart (Novolog Vial Sliding Scale -) 1 vial SQ ACHS [facility] PRN Reason: Protocol Last Admin: 07/27/17 06:41 Dose: 2 units Methylprednisolone Sodium Succinate (Solu-Medrol -) 40 mg IVPUSH DAILY [facility] Metoprolol Tartrate (Lopressor Injection -) 5 mg IVPUSH Q4H PRN Last Admin: 07/25/17 07:28 Dose: 5 mg Metoprolol Tartrate (Lopressor -) 50 mg PO BID [facility] Last Admin: 07/27/17 10:33 Dose: 50 mg Oseltamivir Phosphate (Tamiflu -) 30 mg PO BID [facility] Stop: 07/27/17 21:59 Last Admin: 07/27/17 10:37 Dose: 30 mg Pantoprazole Sodium (Protonix -) 40 mg PO DAILY [facility] Last Admin: 07/27/17 10:33 Dose: 40 mg - Objective Vital Signs: Vital Signs Temperature 98.2 F 07/27/17 05:22 Pulse Rate 89 07/27/17 05:22 Respiratory Rate 20 07/27/17 05:22 Blood Pressure 114/63 07/27/17 05:22 O2 Sat by Pulse Oximetry (%) 100 07/26/17 20:47 Constitutional: Yes: No Distress, Calm, Thin Neck: Yes: Supple Cardiovascular: Yes: Tachycardia, Pulse Irregular Respiratory: Yes: Regular, Diminished, On Nasal O2 Gastrointestinal: Yes: Normal Bowel Sounds, Soft Edema: No Labs: CBC, BMP 07/27/17 05:48 07/26/17 05:05 - ....Imaging EKG: Report Reviewed (Tele: Rapid afib) Problem List - Problems (1) Hyperlipidemia Code(s): E78.5 - HYPERLIPIDEMIA, UNSPECIFIED Qualifiers: Hyperlipidemia type: pure hypercholesterolemia Qualified Code(s): E78.00 - Pure hypercholesterolemia, unspecified; E78.0 - Pure hypercholesterolemia (2) Influenza A Code(s): J10.1 - FLU DUE TO OTH IDENT INFLUENZA VIRUS W OTH RESP MANIFEST (3) Asthma with acute exacerbation Code(s): J45.901 - UNSPECIFIED ASTHMA WITH (ACUTE) EXACERBATION Qualifiers: Asthma severity: mild Asthma persistence: intermittent Qualified Code(s) : J45.21 - Mild intermittent asthma with (acute) exacerbation (4) Atrial fibrillation Code(s): I48.91 - UNSPECIFIED ATRIAL FIBRILLATION Qualifiers: Atrial fibrillation type: paroxysmal Qualified Code(s): I48.0 - Paroxysmal atrial fibrillation (5) COPD (chronic obstructive pulmonary disease) Code(s): J44.9 - CHRONIC OBSTRUCTIVE PULMONARY DISEASE, UNSPECIFIED Qualifiers: COPD type: unspecified COPD Qualified Code(s): J44.9 - Chronic obstructive pulmonary disease, unspecified (6) Chronic alcoholism Code(s): F10.20 - ALCOHOL DEPENDENCE, UNCOMPLICATED Qualifiers: Substance use status: uncomplicated Qualified Code(s): F10.20 - Alcohol dependence, uncomplicated (7) Cocaine dependence Code(s): F14.20 - COCAINE DEPENDENCE, UNCOMPLICATED Qualifiers: Substance use status: uncomplicated Qualified Code(s): F14.20 - Cocaine dependence, uncomplicated Assessment/Plan 07/23/2017 Echo: Normal LV size with hyperkinetic LV fxn, mod-severe eccentric MR, normal biatrial sizes 1. Newly diagnosed atrial fibrillation with RVR, [id number] score probably around 1 or 2 2. History of hypertension - currently normotensive 3. Elevated Hemoglobin A1C suggests diabetes mellitus 4. Bronchial asthma with acute exacerbation/acute bronchitis 5. Polysubstance abuse including ETOH and cocaine 6. Influenza A 7. Hyperlipidemia PLAN: 1. Continue Eliquis 5 bid while in-house, he may not be an ideal long-term candidate in view of his social issues. 2. Increase Lopressor 50 tid, wean off cardizem gtt, continue Lipitor 20 qd 3. IV Steroid taper with GI protection, antibiotic coverage, BD, O2 as needed, PF and Tamiflu. 4. gum worker support 5. Counselling regarding polysubstance abuse
--- NOTE | 2017-07-27 12:06 | PN ---
Physical Exam: SUBJECTIVE: Patient seen and examined at bedside. Voices no complaints. Denies chest pain, palpitations, SOB, RICARDO. Able to ambulate around the room and to the bathroom without difficulty. OBJECTIVE: Vital Signs Period Temp Pulse Resp BP Sys/Vaz Pulse Ox Last 24 Hr 98.1 F-98.6 F 89-131 19-20 106-114/57-84 100 GENERAL: The patient is awake, alert, and fully oriented, in no acute distress. LUNGS: Mild end expiratory wheezing HEART: Irregular, S1, S2, no hepatosplenomegaly, no masses. EXTREMITIES: 2+ pulses, warm, well-perfused, no edema. NEUROLOGICAL: Cranial nerves II through XII grossly intact. Normal speech. LABS & DIAGNOSTICS Telemetry: HR to 150s Laboratory Results - last 24 hr 07/26/17 07/26/17 07/27/17 17:18 21:52 05:48 WBC 14.2 H RBC 4.42 Hgb 12.0 Hct 37.2 MCV 84.0 MCH 27.2 MCHC 32.4 RDW 14.6 Plt Count 204 MPV 9.2 Neutrophils % 94.2 H Lymphocytes % 2.3 L D Monocytes % 3.1 L Eosinophils % 0.3 D Basophils % 0.1 POC Glucometer 178 220 07/27/17 06:32 WBC RBC Hgb Hct MCV MCH MCHC RDW Plt Count MPV Neutrophils % Lymphocytes % Monocytes % Eosinophils % Basophils % POC Glucometer 184 Active Medications Generic Name Dose Route Start Last Admin Trade Name Freq PRN Reason Stop Dose Admin Albuterol/Ipratropium 1 amp 07/23/17 12:00 07/27/17 06:07 Duoneb - NEB 1 amp QIDR ZULEIKA Administration Apixaban 5 mg 07/26/17 10:15 07/27/17 10:33 Eliquis - PO 5 mg BID ZULEIKA Administration Atorvastatin Calcium 20 mg 07/25/17 22:00 07/26/17 21:41 Lipitor - PO 20 mg HS ZULEIKA Administration Budesonide/Formoterol Fumarate 2 puff 07/25/17 13:24 07/27/17 10:36 Symbicort 80/4.5mcg - IH 2 puff BID ZULEIKA Administration Levofloxacin 250 mg in 50 mls @ 50 mls/hr 07/24/17 12:45 07/27/17 10:35 Levaquin 250 Mg Premixed Ivpb - IVPB 50 mls/hr DAILY ZULEIKA Administration Diltiazem HCl 125 mg/ Dextrose 125 mls @ 5 mls/hr 07/25/17 11:00 07/26/17 17: 49 IVPB 10 mg/hr TITR ZULEIKA 10 mls/hr Protocol Titration 5 MG/HR Insulin Aspart 1 vial 07/23/17 16:30 07/27/17 06:41 Novolog Vial Sliding Scale - SQ 2 units ACHS ZULEIKA Administration Protocol Methylprednisolone Sodium Succinate 40 mg 07/28/17 10:00 Solu-Medrol - IVPUSH DAILY ZULEIKA Metoprolol Tartrate 5 mg 07/25/17 07:27 07/25/17 07:28 Lopressor Injection - IVPUSH 5 mg Q4H PRN Administration Metoprolol Tartrate 50 mg 07/27/17 14:00 Lopressor - PO TID ZULEIKA Oseltamivir Phosphate 30 mg 07/23/17 22:00 07/27/17 10:37 Tamiflu - PO 07/27/17 21:59 30 mg BID ZULEIKA Administration Pantoprazole Sodium 40 mg 07/24/17 10:00 07/27/17 10:33 Protonix - PO 40 mg DAILY ZULEIKA Administration ASSESSMENT/PLAN 71 year-old male with a PMH of asthma, ETOH/cocaine use, current smoker, homeless. Admitted for COPD exacerbation and mild ANGEL. Found to be in newly diagnosed atrial fibrillation with RVR and to have Influenza A positive. Asthma/COPD exacerbation --07/22 CT chest: mild COPD --serial CXRs unremarkable --minimal wheezing today --continue levofloxacin --continue Symbicort, duonebs; continue to taper steroids --protonix for GI protection Influenza A --continue Tamiflu, last dose 07/28 in am ANGEL --Cr 1.4 on admission, peaked at 1.6 on 07/23, today 1.2 Newly diagnosed atrial fibrillation with RVR --HR to 150s today on tele monitoring, consistently in 120s at rest --increase Metoprolol from BID and TID --increase diltiazem drip to 10mL/hr for now, wean as tolerated --[id number] score 1; per cardiology, continue Eliquis --continue Lipitor --stop ASA ETOH/cocaine use --no signs or symptoms of withdrawal FEN Fluids: PO intake adequate Electrolytes: replete as indicated Nutrition: regular diet DVT prophylaxis: on Eliquis Physical therapy evalaution Dispo: continues to require inpatient care. Visit type - Emergency Visit Emergency Visit: Yes ED Registration Date: 07/20/17 Care time: The patient presented to the Emergency Department on the above date and was hospitalized for further evaluation of their emergent condition. - New Patient This patient is new to me today: Yes Date on this admission: 07/27/17 - Critical Care Critical Care patient: No
[2017-07-27] MEDS: DILTIAZEM INJECTION 125 MG in DEXTROSE 5%-WATER - 100 ML IVPB SCH (12:41)
[2017-07-27] MEDS: METOPROLOL TARTRATE 50 MG TABLET (FP) PO SCH ×2 (14:19→22:46)
[2017-07-27] MEDS ORDERED: PT OWN MED DRAWER 7, Y5N ONE (15:52)
[2017-07-27] MEDS: ATORVASTATIN CA 20 MG TABLET (FP) PO SCH (22:46)
[2017-07-28] MEDS: ALBUTEROL SO4 2.5/IPRATROPIUM 0.5 INH SOL 3 ML VIAL.NEB. NEB SCH ×2 (00:20→06:36)
[2017-07-28] MEDS: INSULIN SLIDING SCALE (NOVOLOG) 1 VIAL SQ SCH ×4 (06:19→22:11)
[2017-07-28] MEDS: METOPROLOL TARTRATE 50 MG TABLET (FP) PO SCH ×3 (06:19→22:11)
[2017-07-28 08:04] LABS: HEMATOCRIT 39.3 % (35.4-49); HEMOGLOBIN 12.7 GM/dL (11.7-16.9); MCH 27.2 pg (25.7-33.7); MCHC 32.3 g/dl (32.0-35.9); MEAN CELL VOLUME 84.2 fl (80-96); MEAN PLT VOLUME 9.4 fl (7.5-11.1); PLATELET COUNT 219 K/MM3 (134-434); RBC 4.66 M/mm3 (4.00-5.60); RDW 14.6 % (11.9-15.9); WHITE BLOOD COUNT 15.1 K/mm3 (4.0-10.0)
[2017-07-28] MEDS: APIXABAN 5 MG TABLET PO SCH ×2 (09:34→22:11)
[2017-07-28] MEDS: PANTOPRAZOLE 40 MG TABLET (FP) PO SCH (09:35)
[2017-07-28] MEDS: BUDESONIDE/FORMETEROL FUMARATE 80/4.5 mcg INHALER IH SCH ×2 (09:35→22:11)
[2017-07-28] MEDS: methylPREDNISolone NA SUCC 40 MG/1 ML VIAL IVPUSH SCH (09:35)
[2017-07-28] MEDS: DILTIAZEM INJECTION 125 MG in DEXTROSE 5%-WATER - 100 ML IVPB SCH ×3 (09:42→21:54)
--- NOTE | 2017-07-28 10:04 | PN ---
Progress Note, Physician History of Present Illness: PULMONARY ALERT,NO COMPLAINTS,-SOB,-CP,REMAINS IN RAPID A-FIB ON CARDIZEM DRIP - Current Medication List Current Medications: Active Medications Albuterol/Ipratropium (Duoneb -) 1 amp NEB QIDR [facility] Last Admin: 07/28/17 06:36 Dose: 1 amp Apixaban (Eliquis -) 5 mg PO BID [facility] Last Admin: 07/28/17 09:34 Dose: 5 mg Atorvastatin Calcium (Lipitor -) 20 mg PO HS [facility] Last Admin: 07/27/17 22:46 Dose: 20 mg Budesonide/Formoterol Fumarate (Symbicort 80/4.5mcg -) 2 puff IH BID [facility] Last Admin: 07/28/17 09:35 Dose: 2 puff Diltiazem HCl 125 mg/ Dextrose 125 mls @ 5 mls/hr IVPB TITR ZULEIKA; 5 MG/HR PRN Reason: Protocol Last Admin: 07/28/17 09:42 Dose: 10 mg/hr, 10 mls/hr Insulin Aspart (Novolog Vial Sliding Scale -) 1 vial SQ ACHS [facility] PRN Reason: Protocol Last Admin: 07/28/17 06:19 Dose: 2 units Methylprednisolone Sodium Succinate (Solu-Medrol -) 40 mg IVPUSH DAILY [facility] Last Admin: 07/28/17 09:35 Dose: 40 mg Metoprolol Tartrate (Lopressor Injection -) 5 mg IVPUSH Q4H PRN Last Admin: 07/25/17 07:28 Dose: 5 mg Metoprolol Tartrate (Lopressor -) 50 mg PO TID [facility] Last Admin: 07/28/17 06:19 Dose: 50 mg Pantoprazole Sodium (Protonix -) 40 mg PO DAILY [facility] Last Admin: 07/28/17 09:35 Dose: 40 mg - Objective Vital Signs: Vital Signs Temperature 97.6 F 07/28/17 08:18 Pulse Rate 98 H 07/28/17 08:18 Respiratory Rate 18 07/28/17 08:24 Blood Pressure 114/57 07/28/17 08:18 O2 Sat by Pulse Oximetry (%) 98 07/28/17 08:24 Constitutional: Yes: Calm, Thin Eyes: Yes: WNL HENT: Yes: WNL Cardiovascular: Yes: Tachycardia, Pulse Irregular, S1, S2 Respiratory: Yes: Diminished Gastrointestinal: Yes: Normal Bowel Sounds, Soft Extremities: Yes: WNL Edema: No Labs: CBC, BMP 07/28/17 05:45 07/26/17 05:05 Problem List - Problems (1) Atrial fibrillation Code(s): I48.91 - UNSPECIFIED ATRIAL FIBRILLATION Qualifiers: Atrial fibrillation type: paroxysmal Qualified Code(s): I48.0 - Paroxysmal atrial fibrillation (2) Influenza A Code(s): J10.1 - FLU DUE TO OTH IDENT INFLUENZA VIRUS W OTH RESP MANIFEST Assessment/Plan Problem List - Problems (1) Asthma with acute exacerbation Code(s): J45.901 - UNSPECIFIED ASTHMA WITH (ACUTE) EXACERBATION (2) COPD (chronic obstructive pulmonary disease) Code(s): J44.9 - CHRONIC OBSTRUCTIVE PULMONARY DISEASE, UNSPECIFIED (3) Chronic alcoholism Code(s): F10.20 - ALCOHOL DEPENDENCE, UNCOMPLICATED (4) Cocaine dependence Code(s): F14.20 - COCAINE DEPENDENCE, UNCOMPLICATED Assessment/Plan ACUTE BRONCHITIS INFLUENZA A RAPID AFIB PLAN: RATE CONTROL CARDIZEM DRIP EVER/LABA/LAMA/ICS STEROID TAPER O2 PRN DAILY PEAK FLOW DR COX
--- NOTE | 2017-07-28 11:13 | PN ---
Progress Note, Physician History of Present Illness: Dyspnea slowly resolving, denies chest pain, palpitations, near syncope, remains in rate-controlled afib on cardizem gtt, pulled out IV again. - Current Medication List Current Medications: Active Medications Albuterol Sulfate (Ventolin 0.083% Nebulizer Soln -) 1 amp NEB Q4H PRN PRN Reason: SHORT OF BREATH/WHEEZING Apixaban (Eliquis -) 5 mg PO BID [facility] Last Admin: 07/28/17 09:34 Dose: 5 mg Atorvastatin Calcium (Lipitor -) 20 mg PO HS [facility] Last Admin: 07/27/17 22:46 Dose: 20 mg Budesonide/Formoterol Fumarate (Symbicort 80/4.5mcg -) 2 puff IH BID [facility] Last Admin: 07/28/17 09:35 Dose: 2 puff Diltiazem HCl 125 mg/ Dextrose 125 mls @ 5 mls/hr IVPB TITR ZULEIKA; 5 MG/HR PRN Reason: Protocol Last Admin: 07/28/17 11:09 Dose: Not Given Insulin Aspart (Novolog Vial Sliding Scale -) 1 vial SQ ACHS [facility] PRN Reason: Protocol Last Admin: 07/28/17 11:10 Dose: 2 units Methylprednisolone Sodium Succinate (Solu-Medrol -) 40 mg IVPUSH DAILY [facility] Last Admin: 07/28/17 09:35 Dose: 40 mg Metoprolol Tartrate (Lopressor Injection -) 5 mg IVPUSH Q4H PRN Last Admin: 07/25/17 07:28 Dose: 5 mg Metoprolol Tartrate (Lopressor -) 50 mg PO TID [facility] Last Admin: 07/28/17 06:19 Dose: 50 mg Pantoprazole Sodium (Protonix -) 40 mg PO DAILY [facility] Last Admin: 07/28/17 09:35 Dose: 40 mg - Objective Vital Signs: Vital Signs Temperature 97.6 F 07/28/17 08:18 Pulse Rate 98 H 07/28/17 08:18 Respiratory Rate 18 07/28/17 08:24 Blood Pressure 114/57 07/28/17 08:18 O2 Sat by Pulse Oximetry (%) 98 07/28/17 08:24 Constitutional: Yes: No Distress, Calm, Thin Neck: Yes: Supple Cardiovascular: Yes: Tachycardia, Pulse Irregular Respiratory: Yes: Regular, Diminished Gastrointestinal: Yes: Normal Bowel Sounds, Soft Edema: No Labs: CBC, BMP 07/28/17 05:45 07/26/17 05:05 - ....Imaging EKG: Report Reviewed (Tele: Rate-controlled afib) Problem List - Problems (1) Hyperlipidemia Code(s): E78.5 - HYPERLIPIDEMIA, UNSPECIFIED Qualifiers: Hyperlipidemia type: pure hypercholesterolemia Qualified Code(s): E78.00 - Pure hypercholesterolemia, unspecified; E78.0 - Pure hypercholesterolemia (2) Influenza A Code(s): J10.1 - FLU DUE TO OTH IDENT INFLUENZA VIRUS W OTH RESP MANIFEST (3) Asthma with acute exacerbation Code(s): J45.901 - UNSPECIFIED ASTHMA WITH (ACUTE) EXACERBATION Qualifiers: Asthma severity: mild Asthma persistence: intermittent Qualified Code(s) : J45.21 - Mild intermittent asthma with (acute) exacerbation (4) Atrial fibrillation Code(s): I48.91 - UNSPECIFIED ATRIAL FIBRILLATION Qualifiers: Atrial fibrillation type: paroxysmal Qualified Code(s): I48.0 - Paroxysmal atrial fibrillation (5) COPD (chronic obstructive pulmonary disease) Code(s): J44.9 - CHRONIC OBSTRUCTIVE PULMONARY DISEASE, UNSPECIFIED Qualifiers: COPD type: unspecified COPD Qualified Code(s): J44.9 - Chronic obstructive pulmonary disease, unspecified (6) Chronic alcoholism Code(s): F10.20 - ALCOHOL DEPENDENCE, UNCOMPLICATED Qualifiers: Substance use status: uncomplicated Qualified Code(s): F10.20 - Alcohol dependence, uncomplicated (7) Cocaine dependence Code(s): F14.20 - COCAINE DEPENDENCE, UNCOMPLICATED Qualifiers: Substance use status: uncomplicated Qualified Code(s): F14.20 - Cocaine dependence, uncomplicated Assessment/Plan 07/23/2017 Echo: Normal LV size with hyperkinetic LV fxn, mod-severe eccentric MR, normal biatrial sizes 1. Newly diagnosed atrial fibrillation with improved rate-control, [id number] score probably around 1 or 2 2. History of hypertension - currently normotensive 3. Elevated Hemoglobin A1C suggests diabetes mellitus 4. Bronchial asthma with acute exacerbation/acute bronchitis 5. Polysubstance abuse including ETOH and cocaine 6. Influenza A 7. Hyperlipidemia PLAN: 1. Continue Eliquis 5 bid while in-house, he may not be an ideal long-term candidate in view of his social issues. 2. Continue Lopressor 50 tid, wean off cardizem gtt, continue Lipitor 20 qd 3. IV Steroid taper with GI protection, antibiotic coverage, BD, O2 as needed, PF and Tamiflu. 4. road worker support 5. Counselling regarding polysubstance abuse
[2017-07-28] MEDS: ALBUTEROL SO4 0.083% IH SOL 2.5 MG/3 ML VIAL.NEB. NEB PRN ×2 (12:00→17:26)
--- NOTE | 2017-07-28 13:09 | PN ---
Physical Exam: SUBJECTIVE: Patient seen and examined sitting on edge of bed eating lunch. Voices no complaints. Denies SOB, chest pain. OBJECTIVE: Vital Signs Period Temp Pulse Resp BP Sys/Vaz Pulse Ox Last 24 Hr 97.6 F-99.0 F 92-126 18-18 98-118/56-81 98-98 GENERAL: The patient is awake, alert, and fully oriented, in no acute distress. LUNGS: Mild end expiratory wheezing HEART: Irregular, S1, S2, no hepatosplenomegaly, no masses. EXTREMITIES: 2+ pulses, warm, well-perfused, no edema. NEUROLOGICAL: Cranial nerves II through XII grossly intact. Normal speech. Laboratory Results - last 24 hr 07/27/17 07/27/17 07/28/17 17:35 21:47 05:45 WBC 15.1 H RBC 4.66 Hgb 12.7 Hct 39.3 MCV 84.2 MCH 27.2 MCHC 32.3 RDW 14.6 Plt Count 219 MPV 9.4 POC Glucometer 140 297 07/28/17 07/28/17 06:01 11:08 WBC RBC Hgb Hct MCV MCH MCHC RDW Plt Count MPV POC Glucometer 197 166 Active Medications Generic Name Dose Route Start Last Admin Trade Name Freq PRN Reason Stop Dose Admin Albuterol Sulfate 1 amp 07/28/17 10:04 Ventolin 0.083% Nebulizer Soln - NEB Q4H PRN SHORT OF BREATH/WHEEZING Apixaban 5 mg 07/26/17 10:15 07/28/17 09:34 Eliquis - PO 5 mg BID ZULEIKA Administration Atorvastatin Calcium 20 mg 07/25/17 22:00 07/27/17 22:46 Lipitor - PO 20 mg HS ZULEIKA Administration Budesonide/Formoterol Fumarate 2 puff 07/25/17 13:24 07/28/17 09:35 Symbicort 80/4.5mcg - IH 2 puff BID ZULEIKA Administration Diltiazem HCl 125 mg/ Dextrose 125 mls @ 5 mls/hr 07/25/17 11:00 07/28/17 11: 09 IVPB Not Given TITR ZULEIKA Protocol 5 MG/HR Insulin Aspart 1 vial 07/23/17 16:30 07/28/17 11:10 Novolog Vial Sliding Scale - SQ 2 units ACHS ZULEIKA Administration Protocol Methylprednisolone Sodium Succinate 40 mg 07/28/17 10:00 07/28/17 09:35 Solu-Medrol - IVPUSH 40 mg DAILY ZULEIKA Administration Metoprolol Tartrate 5 mg 07/25/17 07:27 07/25/17 07:28 Lopressor Injection - IVPUSH 5 mg Q4H PRN Administration Metoprolol Tartrate 50 mg 07/27/17 14:00 07/28/17 06:19 Lopressor - PO 50 mg TID ZULEIKA Administration Pantoprazole Sodium 40 mg 07/24/17 10:00 07/28/17 09:35 Protonix - PO 40 mg DAILY ZULEIKA Administration ASSESSMENT/PLAN 71 year-old male with a PMH of asthma, ETOH/cocaine use, current smoker, homeless. Admitted for COPD exacerbation and mild ANGEL. Found to be in newly diagnosed atrial fibrillation with RVR and Influenza A positive. Newly diagnosed atrial fibrillation with RVR --HR in 90s at rest, to 120s with exertion --titrate diltiazem drip to 7.5mL and continue to wean as tolerated --continue metoprolol TID --[id number] score 1; per cardiology, continue Eliquis --continue Lipitor --ASA d/c'd Asthma/COPD exacerbation --07/22 CT chest: mild COPD --serial CXRs unremarkable --minimal expiratory wheezing persists --continue levofloxacin --continue Symbicort, duonebs; continue to taper steroids --protonix for GI protection Influenza A --Tamiflu course complete ANGEL --Cr 1.4 on admission, peaked at 1.6 on 07/23,now 1.2 ETOH/cocaine use --no signs or symptoms of withdrawal FEN Fluids: PO intake adequate Electrolytes: replete as indicated Nutrition: regular diet DVT prophylaxis: on Eliquis Physical therapy evalaution Dispo: continues to require inpatient care. Visit type - Emergency Visit Emergency Visit: Yes ED Registration Date: 07/20/17 Care time: The patient presented to the Emergency Department on the above date and was hospitalized for further evaluation of their emergent condition. - New Patient This patient is new to me today: No - Critical Care Critical Care patient: No
[2017-07-28] MEDS: ATORVASTATIN CA 20 MG TABLET (FP) PO SCH (22:11)
[2017-07-29] MEDS: ALBUTEROL SO4 0.083% IH SOL 2.5 MG/3 ML VIAL.NEB. NEB PRN ×2 (00:30→13:35)
[2017-07-29] MEDS: INSULIN SLIDING SCALE (NOVOLOG) 1 VIAL SQ SCH ×4 (06:29→21:59)
[2017-07-29] MEDS: METOPROLOL TARTRATE 50 MG TABLET (FP) PO SCH ×3 (06:29→21:59)
[2017-07-29 07:50] LABS: HEMATOCRIT 36.5 % (35.4-49); HEMOGLOBIN 11.8 GM/dL (11.7-16.9); MCH 27.1 pg (25.7-33.7); MCHC 32.4 g/dl (32.0-35.9); MEAN CELL VOLUME 83.7 fl (80-96); MEAN PLT VOLUME 9.2 fl (7.5-11.1); PLATELET COUNT 209 K/MM3 (134-434); RBC 4.36 M/mm3 (4.00-5.60); RDW 14.9 % (11.9-15.9)
[2017-07-29] MEDS: BUDESONIDE/FORMETEROL FUMARATE 80/4.5 mcg INHALER IH SCH ×2 (09:28→22:00)
[2017-07-29] MEDS: methylPREDNISolone NA SUCC 40 MG/1 ML VIAL IVPUSH SCH (09:29)
[2017-07-29] MEDS: APIXABAN 5 MG TABLET PO SCH ×2 (09:29→21:59)
[2017-07-29] MEDS: PANTOPRAZOLE 40 MG TABLET (FP) PO SCH (09:29)
--- NOTE | 2017-07-29 10:54 | PN ---
Progress Note, Physician History of Present Illness: pulmonary alert,no distress,remains in rapid a-fib - Current Medication List Current Medications: Active Medications Albuterol Sulfate (Ventolin 0.083% Nebulizer Soln -) 1 amp NEB Q4H PRN PRN Reason: SHORT OF BREATH/WHEEZING Last Admin: 07/29/17 00:30 Dose: 1 amp Apixaban (Eliquis -) 5 mg PO BID [facility] Last Admin: 07/29/17 09:29 Dose: 5 mg Atorvastatin Calcium (Lipitor -) 20 mg PO HS [facility] Last Admin: 07/28/17 22:11 Dose: 20 mg Budesonide/Formoterol Fumarate (Symbicort 80/4.5mcg -) 2 puff IH BID [facility] Last Admin: 07/29/17 09:28 Dose: 2 puff Diltiazem HCl (Cardizem -) 30 mg PO QID ZULEIKA Diltiazem HCl 125 mg/ Dextrose 125 mls @ 5 mls/hr IVPB TITR ZULEIKA; 5 MG/HR PRN Reason: Protocol Last Admin: 07/28/17 21:54 Dose: 7.5 mg/hr, 7.5 mls/hr Insulin Aspart (Novolog Vial Sliding Scale -) 1 vial SQ ACHS ZULEIKA PRN Reason: Protocol Last Admin: 07/29/17 06:29 Dose: Not Given Methylprednisolone Sodium Succinate (Solu-Medrol -) 40 mg IVPUSH DAILY [facility] Last Admin: 07/29/17 09:29 Dose: 40 mg Metoprolol Tartrate (Lopressor Injection -) 5 mg IVPUSH Q4H PRN Last Admin: 07/25/17 07:28 Dose: 5 mg Metoprolol Tartrate (Lopressor -) 50 mg PO TID [facility] Last Admin: 07/29/17 06:29 Dose: 50 mg Pantoprazole Sodium (Protonix -) 40 mg PO DAILY [facility] Last Admin: 07/29/17 09:29 Dose: 40 mg - Objective Vital Signs: Vital Signs Temperature 97.9 F 07/29/17 07:30 Pulse Rate 102 H 07/29/17 07:30 Respiratory Rate 18 07/29/17 07:30 Blood Pressure 114/72 07/29/17 07:30 O2 Sat by Pulse Oximetry (%) 100 07/29/17 07:27 Constitutional: Yes: Calm, Thin Eyes: Yes: WNL HENT: Yes: WNL Neck: Yes: WNL Cardiovascular: Yes: Tachycardia, Pulse Irregular, S1, S2 Respiratory: Yes: CTA Bilaterally Gastrointestinal: Yes: Normal Bowel Sounds, Soft Extremities: Yes: WNL Edema: No Labs: CBC, BMP 07/29/17 05:45 07/26/17 05:05 Problem List - Problems (1) Atrial fibrillation Code(s): I48.91 - UNSPECIFIED ATRIAL FIBRILLATION Qualifiers: Atrial fibrillation type: paroxysmal Qualified Code(s): I48.0 - Paroxysmal atrial fibrillation (2) Influenza A Code(s): J10.1 - FLU DUE TO OTH IDENT INFLUENZA VIRUS W OTH RESP MANIFEST Assessment/Plan Problem List - Problems (1) Asthma with acute exacerbation Code(s): J45.901 - UNSPECIFIED ASTHMA WITH (ACUTE) EXACERBATION (2) COPD (chronic obstructive pulmonary disease) Code(s): J44.9 - CHRONIC OBSTRUCTIVE PULMONARY DISEASE, UNSPECIFIED (3) Chronic alcoholism Code(s): F10.20 - ALCOHOL DEPENDENCE, UNCOMPLICATED (4) Cocaine dependence Code(s): F14.20 - COCAINE DEPENDENCE, UNCOMPLICATED Assessment/Plan ACUTE BRONCHITIS INFLUENZA A RAPID AFIB PLAN: RATE CONTROL CARDIZEM IP EVER/LABA/LAMA/ICS STEROID TAPER O2 PRN DAILY PEAK FLOW DR COX
--- NOTE | 2017-07-29 10:58 | PN ---
Progress Note, Physician History of Present Illness: Dyspnea slowly resolving, denies chest pain, palpitations, orthopnea, remains in rate-controlled afib on cardizem gtt. - Current Medication List Current Medications: Active Medications Albuterol Sulfate (Ventolin 0.083% Nebulizer Soln -) 1 amp NEB Q4H PRN PRN Reason: SHORT OF BREATH/WHEEZING Last Admin: 07/29/17 00:30 Dose: 1 amp Apixaban (Eliquis -) 5 mg PO BID [facility] Last Admin: 07/29/17 09:29 Dose: 5 mg Atorvastatin Calcium (Lipitor -) 20 mg PO HS [facility] Last Admin: 07/28/17 22:11 Dose: 20 mg Budesonide/Formoterol Fumarate (Symbicort 80/4.5mcg -) 2 puff IH BID [facility] Last Admin: 07/29/17 09:28 Dose: 2 puff Diltiazem HCl (Cardizem -) 30 mg PO QID ZULEIKA Diltiazem HCl 125 mg/ Dextrose 125 mls @ 5 mls/hr IVPB TITR ZULEIKA; 5 MG/HR PRN Reason: Protocol Last Admin: 07/28/17 21:54 Dose: 7.5 mg/hr, 7.5 mls/hr Insulin Aspart (Novolog Vial Sliding Scale -) 1 vial SQ ACHS ZULEIKA PRN Reason: Protocol Last Admin: 07/29/17 06:29 Dose: Not Given Methylprednisolone Sodium Succinate (Solu-Medrol -) 40 mg IVPUSH DAILY [facility] Last Admin: 07/29/17 09:29 Dose: 40 mg Metoprolol Tartrate (Lopressor Injection -) 5 mg IVPUSH Q4H PRN Last Admin: 07/25/17 07:28 Dose: 5 mg Metoprolol Tartrate (Lopressor -) 50 mg PO TID [facility] Last Admin: 07/29/17 06:29 Dose: 50 mg Pantoprazole Sodium (Protonix -) 40 mg PO DAILY [facility] Last Admin: 07/29/17 09:29 Dose: 40 mg - Objective Vital Signs: Vital Signs Temperature 97.9 F 07/29/17 07:30 Pulse Rate 102 H 07/29/17 07:30 Respiratory Rate 18 07/29/17 07:30 Blood Pressure 114/72 07/29/17 07:30 O2 Sat by Pulse Oximetry (%) 100 07/29/17 07:27 Constitutional: Yes: No Distress, Calm, Thin Neck: Yes: Supple Cardiovascular: Yes: Tachycardia, Pulse Irregular Respiratory: Yes: Regular, Diminished, On Nasal O2 Gastrointestinal: Yes: Normal Bowel Sounds, Soft Edema: No Labs: CBC, BMP 07/29/17 05:45 07/26/17 05:05 - ....Imaging EKG: Report Reviewed (Tele: Afib 110s-120s) Problem List - Problems (1) Hyperlipidemia Code(s): E78.5 - HYPERLIPIDEMIA, UNSPECIFIED Qualifiers: Hyperlipidemia type: pure hypercholesterolemia Qualified Code(s): E78.00 - Pure hypercholesterolemia, unspecified; E78.0 - Pure hypercholesterolemia (2) Influenza A Code(s): J10.1 - FLU DUE TO OTH IDENT INFLUENZA VIRUS W OTH RESP MANIFEST (3) Asthma with acute exacerbation Code(s): J45.901 - UNSPECIFIED ASTHMA WITH (ACUTE) EXACERBATION Qualifiers: Asthma severity: mild Asthma persistence: intermittent Qualified Code(s) : J45.21 - Mild intermittent asthma with (acute) exacerbation (4) Atrial fibrillation Code(s): I48.91 - UNSPECIFIED ATRIAL FIBRILLATION Qualifiers: Atrial fibrillation type: paroxysmal Qualified Code(s): I48.0 - Paroxysmal atrial fibrillation (5) COPD (chronic obstructive pulmonary disease) Code(s): J44.9 - CHRONIC OBSTRUCTIVE PULMONARY DISEASE, UNSPECIFIED Qualifiers: COPD type: unspecified COPD Qualified Code(s): J44.9 - Chronic obstructive pulmonary disease, unspecified (6) Chronic alcoholism Code(s): F10.20 - ALCOHOL DEPENDENCE, UNCOMPLICATED Qualifiers: Substance use status: uncomplicated Qualified Code(s): F10.20 - Alcohol dependence, uncomplicated (7) Cocaine dependence Code(s): F14.20 - COCAINE DEPENDENCE, UNCOMPLICATED Qualifiers: Substance use status: uncomplicated Qualified Code(s): F14.20 - Cocaine dependence, uncomplicated Assessment/Plan 07/23/2017 Echo: Normal LV size with hyperkinetic LV fxn, mod-severe eccentric MR, normal biatrial sizes 1. Newly diagnosed atrial fibrillation with improved rate-control, [id number] score probably around 1 or 2 2. History of hypertension - currently normotensive 3. Elevated Hemoglobin A1C suggests diabetes mellitus 4. Bronchial asthma with acute exacerbation/acute bronchitis 5. Polysubstance abuse including ETOH and cocaine 6. Influenza A 7. Hyperlipidemia PLAN: 1. Continue Eliquis 5 bid while in-house, he may not be an ideal long-term candidate in view of his social issues. 2. Continue Lopressor 50 tid, start Cardizem 30 q6, attempt wean off cardizem gtt, continue Lipitor 20 qd 3. IV Steroid taper with GI protection, antibiotic coverage, BD, O2 as needed, PF and Tamiflu. 4. piggery worker support 5. Counselling regarding polysubstance abuse
--- NOTE | 2017-07-29 11:09 | PN ---
Physical Exam: SUBJECTIVE: Patient seen and examined, states he has SOB when he lays flat, suggested raising head of bed. Denies cough, fever, chills. OBJECTIVE: Vital Signs Period Temp Pulse Resp BP Sys/Vaz Pulse Ox Last 24 Hr 97.9 F-99.0 F 101-110 18-18 103-118/56-75 100-100 PE Neuro: alert, awake, cn 2-12intact Pulm: diminished, no wheezing noted +NC CV: S1 s2 irregular rate rhythm Abd: s nt nd + bs Ext: warm, no le edema Laboratory Results - last 24 hr 07/29/17 07/29/17 05:45 06:28 WBC 14.0 H RBC 4.36 Hgb 11.8 Hct 36.5 MCV 83.7 MCH 27.1 MCHC 32.4 RDW 14.9 Plt Count 209 MPV 9.2 POC Glucometer 137 Active Medications Generic Name Dose Route Start Last Admin Trade Name Freq PRN Reason Stop Dose Admin Albuterol Sulfate 1 amp 07/28/17 10:04 07/29/17 00:30 Ventolin 0.083% Nebulizer Soln - NEB 1 amp Q4H PRN Administration SHORT OF BREATH/WHEEZING Apixaban 5 mg 07/26/17 10:15 07/29/17 09:29 Eliquis - PO 5 mg BID ZULEIKA Administration Atorvastatin Calcium 20 mg 07/25/17 22:00 07/28/17 22:11 Lipitor - PO 20 mg HS ZULEIKA Administration Budesonide/Formoterol Fumarate 2 puff 07/25/17 13:24 07/29/17 09:28 Symbicort 80/4.5mcg - IH 2 puff BID ZULEIKA Administration Diltiazem HCl 30 mg 07/29/17 10:08 Cardizem - PO QID ZULEIKA Diltiazem HCl 125 mg/ Dextrose 125 mls @ 5 mls/hr 07/25/17 11:00 07/28/17 21: 54 IVPB 7.5 mg/hr TITR ZULEIKA 7.5 mls/hr Protocol Administration 5 MG/HR Insulin Aspart 1 vial 07/23/17 16:30 07/29/17 06:29 Novolog Vial Sliding Scale - SQ Not Given ACHS ZULEIKA Protocol Methylprednisolone Sodium Succinate 40 mg 07/28/17 10:00 07/29/17 09:29 Solu-Medrol - IVPUSH 40 mg DAILY ZULEIKA Administration Metoprolol Tartrate 5 mg 07/25/17 07:27 07/25/17 07:28 Lopressor Injection - IVPUSH 5 mg Q4H PRN Administration Metoprolol Tartrate 50 mg 07/27/17 14:00 07/29/17 06:29 Lopressor - PO 50 mg TID ZULEIKA Administration Pantoprazole Sodium 40 mg 07/24/17 10:00 07/29/17 09:29 Protonix - PO 40 mg DAILY ZULEIKA Administration Assessment: 71 year old male with a PMH of asthma, ETOH/cocaine use, current smoker, homeless. Admitted for COPD exacerbation and mild ANGEL. Found to be in newly diagnosed atrial fibrillation with RVR and Influenza A positive. Plan: 1. Newly diagnosed atrial fibrillation with RVR/[id number] score 1 - Rate uncontrolled - Start PO cardizem 30m q6 with weak cardizem gtt as tolerated - Continue Lopresor 50mg TID - Continue Eliquis - Continue Lipitor - Not candidate for DCCV 2. Asthma/COPD exacerbation - Transition to po prednisone tomorrow 40mg daily - Continue Symbicort, duonebs - Completed 7days levaquin 3. Influenza A - DC isolation precautions - Tamiflu course complete 4. ANGEL - Resolved 5. ETOH/cocaine use - No signs or symptoms of withdrawal 6. DVT ppx - on Eliquis Physical therapy evaluation Dispo: continues to require inpatient care. Visit type - Emergency Visit Emergency Visit: Yes ED Registration Date: 07/20/17 Care time: The patient presented to the Emergency Department on the above date and was hospitalized for further evaluation of their emergent condition. - New Patient This patient is new to me today: Yes Date on this admission: 07/29/17 - Critical Care Critical Care patient: No
[2017-07-29] MEDS: DILTIAZEM INJECTION 125 MG in DEXTROSE 5%-WATER - 100 ML IVPB SCH (11:12)
[2017-07-29] MEDS: dilTIAZem HCL 30 MG TABLET (FP) PO SCH ×2 (12:11→17:03)
[2017-07-29] MEDS: ATORVASTATIN CA 20 MG TABLET (FP) PO SCH (21:59)
[2017-07-30] MEDS: dilTIAZem HCL 30 MG TABLET (FP) PO SCH ×4 (00:06→17:37)
[2017-07-30] MEDS: INSULIN SLIDING SCALE (NOVOLOG) 1 VIAL SQ SCH ×4 (06:03→21:21)
[2017-07-30] MEDS: METOPROLOL TARTRATE 50 MG TABLET (FP) PO SCH ×3 (06:19→17:37)
--- NOTE | 2017-07-30 08:12 | PN ---
Progress Note (short form) - Note Progress Note: Chief Complaint: Events noted, notes reviewed, denies any chest pain or dyspnea , atrial fibrillation persists with periods of rapid ventricular rate, remains on IV Cardizem History of Present Illness: Seen and examined on telemetry. Events noted, notes reviewed, denies any chest pain or dyspnea, atrial fibrillation persists with periods of rapid ventricular rate, remains on IV Cardizem Echocardiography dated 07/23/17 revealed sigmoid septum with hyper-dynamic LV, moderate to severe MR, AV sclerosis - Current Medication List Current Medications Albuterol Sulfate (Ventolin 0.083% Nebulizer Soln -) 1 amp NEB Q4H PRN PRN Reason: SHORT OF BREATH/WHEEZING Last Admin: 07/29/17 13:35 Dose: 1 amp Apixaban (Eliquis -) 5 mg PO BID [facility] Last Admin: 07/30/17 09:16 Dose: 5 mg Atorvastatin Calcium (Lipitor -) 20 mg PO HS [facility] Last Admin: 07/29/17 21:59 Dose: 20 mg Budesonide/Formoterol Fumarate (Symbicort 80/4.5mcg -) 2 puff IH BID [facility] Last Admin: 07/30/17 09:17 Dose: 2 puff Diltiazem HCl (Cardizem -) 30 mg PO Q6HPO [facility] Last Admin: 07/30/17 06:19 Dose: 30 mg Diltiazem HCl 125 mg/ Dextrose 125 mls @ 5 mls/hr IVPB TITR ZULEIKA; 5 MG/HR PRN Reason: Protocol Last Admin: 07/29/17 11:12 Dose: 7.5 mg/hr, 7.5 mls/hr Insulin Aspart (Novolog Vial Sliding Scale -) 1 vial SQ ACHS [facility] PRN Reason: Protocol Last Admin: 07/30/17 06:03 Dose: Not Given Metoprolol Tartrate (Lopressor Injection -) 5 mg IVPUSH Q4H PRN Last Admin: 07/25/17 07:28 Dose: 5 mg Metoprolol Tartrate (Lopressor -) 50 mg PO TID [facility] Last Admin: 07/30/17 06:19 Dose: 50 mg Pantoprazole Sodium (Protonix -) 40 mg PO DAILY [facility] Last Admin: 07/30/17 09:16 Dose: 40 mg Prednisone (Deltasone -) 40 mg PO DAILY [facility] Last Admin: 07/30/17 09:16 Dose: 40 mg Review of Systems Constitutional: Denies: Chills or Fever Cardiovascular: As noted above Respiratory: denies: Cough or Sputum Gastrointestinal: Denies: Nausea, Vomiting, Diarrhea, Constipation but reporting Abdominal Pain Genitourinary: No Symptoms Reported Neurology: No seizures or syncope - Objective Vital Signs: Last Vital Signs Temp Pulse Resp BP Pulse Ox 98.0 F 96 H 20 117/82 96 07/30/17 05:53 07/30/17 05:53 07/30/17 05:53 07/30/17 05:53 07/29/17 20:52 Intake & Output 07/27/17 07/28/17 07/29/17 07/30/17 23:59 23:59 23:59 23:59 Intake Total 1524 1240 650 Output Total 500 200 Balance 1024 1040 650 Constitutional: No Distress, Calm Neck: Supple Negative JVD No bruit Cardiovascular: S1 S2 Irregularly Irregular Grade 2/6 Respiratory: Diminished Breath Sounds at the Bases Gastrointestinal: Soft Benign Normal Bowel Sounds Ext: No Edema Labs: CBC, BMP 07/30/17 08:20 07/30/17 08:20 Assessment/Plan ASSESSMENT: 1. New onset paroxysmal atrial fibrillation with periods of rapid ventricular response, [id number] score probably around 3 (age, HTN and DM) 2. Probable hypertrophic cardiomyopathy unclear if there is outflow tract obstruction, echo study to be reviewed 3. Mitral valve regurgitation moderate to severe, echo study to be reviewed 4. History of hypertension - currently normotensive 5. Diabetes mellitus 6. Hyperlipidemia 7. Bronchial asthma with acute exacerbation/acute bronchitis 8. Polysubstance abuse including ETOH and cocaine 9. Influenza A PLAN: 1. As recommended continue Eliquis while in-house, he may not be an ideal long- term candidate in view of his social issues, other alternative would be Coumadin 2. Continue Lopressor and titrate as tolerated 3. Continue Cardizem and D/C IV Cardizem 4. Continue Lipitor 5. Continue PO Steroid and bronchodilators 6. echo study to be reviewed in reference to above 7. Counselled regarding poly-substance abuse cessation Ankush Olvera M.D.
[2017-07-30 08:33] LABS: HEMATOCRIT 38.8 % (35.4-49); HEMOGLOBIN 12.6 GM/dL (11.7-16.9); MCH 27.3 pg (25.7-33.7); MCHC 32.3 g/dl (32.0-35.9); MEAN CELL VOLUME 84.3 fl (80-96); MEAN PLT VOLUME 8.9 fl (7.5-11.1); PLATELET COUNT 230 K/MM3 (134-434); RDW 14.5 % (11.9-15.9); WHITE BLOOD COUNT 18.1 K/mm3 (4.0-10.0)
[2017-07-30] MEDS ORDERED: PT OWN MED DRAWER 7, Y5N ONE (08:39)
[2017-07-30 09:01] LABS: ALBUMIN 2.8 g/dl (3.4-5.0); ANION GAP 7 (8-16); BLOOD UREA NITROGEN 33 mg/dL (7-18); CALCIUM 8.6 mg/dL (8.5-10.1); CHLORIDE 96 mmol/L (98-107); CO2 34 mmol/L (21-32); GLUCOSE,RANDOM 175 mg/dL (74-106); POTASSIUM 4.9 mmol/L (3.5-5.1); SODIUM 137 mmol/L (136-145)
[2017-07-30 09:04] LABS: ALK PHOS 62 U/L (45-117); BILIRUBIN,TOTAL 0.8 mg/dL (0.2-1.0); CREATININE 1.4 mg/dL (0.7-1.3); SGOT/AST 24 U/L (15-37); SGPT/ALT 66 U/L (12-78); TOT PROT 5.5 g/dl (6.4-8.2)
--- NOTE | 2017-07-30 09:06 | PN ---
Physical Exam: SUBJECTIVE: Patient seen and examined at the bedside. He is still on supplemental oxygen, denies any shortness of breath. OBJECTIVE: Stop Cardizem drip now, discussed with cardiology Monitor off oxygen, respiratory pre and post now. + fine expiratory wheezing on anterior and posterior lungs traffic control technician shows irregular heart rate 98-105 wbc bumped up to 18.1, afebrile>blood cultures Vital Signs Period Temp Pulse Resp BP Sys/Vaz Pulse Ox Last 24 Hr 97.4 F-98.1 F 89-100 20-20 106-117/63-82 96 GENERAL: The patient is awake, alert, and fully oriented, in no acute distress. HEAD: Normal with no signs of trauma. EYES: PERRL, extraocular movements intact, sclera anicteric, conjunctiva clear. No ptosis. ENT: Ears normal, nares patent, oropharynx clear without exudates, moist mucous membranes. NECK: Trachea midline, full range of motion, supple. LUNGS: Breath sounds equal, clear to auscultation bilaterally, no wheezes, no crackles, no accessory muscle use. HEART: irregular heart rate, controlled on manager cardiac ABDOMEN: Soft, nontender, nondistended, normoactive bowel sounds, no guarding, no rebound, no hepatosplenomegaly, no masses. EXTREMITIES: 2+ pulses, warm, well-perfused, no edema. NEUROLOGICAL: Normal speech, gait not observed. PSYCH: Normal mood, normal affect. SKIN: Warm, dry, normal turgor, no rashes or lesions noted Laboratory Results - last 24 hr 07/29/17 07/29/17 07/29/17 11:05 16:51 21:07 WBC RBC Hgb Hct MCV MCH MCHC RDW Plt Count MPV Neutrophils % Lymphocytes % POC Glucometer 318 234 228 07/30/17 07/30/17 05:50 08:20 WBC 18.1 H RBC 4.60 Hgb 12.6 Hct 38.8 MCV 84.3 MCH 27.3 MCHC 32.3 RDW 14.5 Plt Count 230 MPV 8.9 Neutrophils % No Result Required. Lymphocytes % No Result Required. POC Glucometer 146 Active Medications Generic Name Dose Route Start Last Admin Trade Name Freq PRN Reason Stop Dose Admin Albuterol Sulfate 1 amp 07/28/17 10:04 07/29/17 13:35 Ventolin 0.083% Nebulizer Soln - NEB 1 amp Q4H PRN Administration SHORT OF BREATH/WHEEZING Apixaban 5 mg 07/26/17 10:15 07/29/17 21:59 Eliquis - PO 5 mg BID ZULEIKA Administration Atorvastatin Calcium 20 mg 07/25/17 22:00 07/29/17 21:59 Lipitor - PO 20 mg HS ZULEIKA Administration Budesonide/Formoterol Fumarate 2 puff 07/25/17 13:24 07/29/17 22:00 Symbicort 80/4.5mcg - IH 2 puff BID ZULEIKA Administration Diltiazem HCl 30 mg 07/29/17 12:00 07/30/17 06:19 Cardizem - PO 30 mg Q6HPO ZULEIKA Administration Diltiazem HCl 125 mg/ Dextrose 125 mls @ 5 mls/hr 07/25/17 11:00 07/29/17 11: 12 IVPB 7.5 mg/hr TITR ZULEIKA 7.5 mls/hr Protocol Administration 5 MG/HR Insulin Aspart 1 vial 07/23/17 16:30 07/30/17 06:03 Novolog Vial Sliding Scale - SQ Not Given ACHS [facility] Protocol Metoprolol Tartrate 5 mg 07/25/17 07:27 07/25/17 07:28 Lopressor Injection - IVPUSH 5 mg Q4H PRN Administration Metoprolol Tartrate 50 mg 07/27/17 14:00 07/30/17 06:19 Lopressor - PO 50 mg TID ZULEIKA Administration Pantoprazole Sodium 40 mg 07/24/17 10:00 07/29/17 09:29 Protonix - PO 40 mg DAILY ZULEIKA Administration Prednisone 40 mg 07/30/17 10:00 Deltasone - PO DAILY [facility] ASSESSMENT/PLAN: Patient is a 71 year old male with a significant past medical history of asthma since childhood, alcohol/cocaine abuse (denies current use) and cigarette smoker (quit 1 month ago). He presented to the ED with shortness of breath and wheezing. As per patient, he has been having dyspnea on exertion with the cold weather. He is on no medications for asthma currently. He denies any chest pain, palpitations or chest tightness. Denies any fever or chills. He admits to former ETOH abuse and polysubstance abuse but denies any current use. He also states that he is currently homeless and often sleeps in shelters or at his daughter's home. During this admission, patient was found to have a possible new onset of afib on EKG. 71 year old male with a PMH of asthma, ETOH/cocaine use, current smoker, homeless. Admitted for COPD exacerbation and mild ANGEL. Found to be in newly diagnosed atrial fibrillation with RVR and Influenza A positive. Cardiology New onset atrial fib vs. prosysmal afib as per EKG Patient denies chest pain Patient does not report any previous cardiac issues, however with his social status and poor medical followup, it is unclear Discontinue cardizem drip now, on PO Cardizem q6 On Lopressor 50mg TID On Eliquis 5mg BID Discussed with coin teller Pulmonary: Asthma exacerbation, improving s/p Solumedrol, weaned to Prednisone 40mg daily Would continue at this dose for now and wean off slowly On Symbicort, duonebs prn Monitor respiratory status, titrate oxygen prn Respiratory pre and post Influenza A + for influenza A on admission Finished full course of Tamiflu Hypertension, controlled On Lopressor 50mg TID Endocrine hmga1c 6.7, hyperglycemic Started on Novolog sliding scale Metformin on discharge Hematology Leukocytosis, bumped up today to 18 No fevers,vitals stable Blood cultures ordered Renal: Mild ANGEL @ 1.4 Monitor F.E.N. Fluids:encourage PO intake Electrolytes: monitor in a.m. Nutrition: regular diet Prophylaxis: GI: Protonix DVT: Eliquis Disposition. full code Visit type - Emergency Visit Emergency Visit: Yes ED Registration Date: 07/20/17 Care time: The patient presented to the Emergency Department on the above date and was hospitalized for further evaluation of their emergent condition. - New Patient This patient is new to me today: No - Critical Care Critical Care patient: No - Discharge Referral Referred to [facility] Med [facility] No
[2017-07-30] MEDS: PANTOPRAZOLE 40 MG TABLET (FP) PO SCH (09:16)
[2017-07-30] MEDS: APIXABAN 5 MG TABLET PO SCH ×2 (09:16→21:22)
[2017-07-30] MEDS: BUDESONIDE/FORMETEROL FUMARATE 80/4.5 mcg INHALER IH SCH ×2 (09:17→21:22)
[2017-07-30 09:26] LABS: MAGNESIUM 2.7 mg/dL (1.8-2.4)
[2017-07-30] MEDS ORDERED: predniSONE 20 MG TABLET (UD) PO SCH (10:00)
[2017-07-30] MEDS: ALBUTEROL SO4 0.083% IH SOL 2.5 MG/3 ML VIAL.NEB. NEB PRN ×2 (11:10→22:35)
--- NOTE | 2017-07-30 11:22 | PN ---
Progress Note, Physician History of Present Illness: pulmonary alert,nad,-cp,-sob - Current Medication List Current Medications: Active Medications Albuterol Sulfate (Ventolin 0.083% Nebulizer Soln -) 1 amp NEB Q4H PRN PRN Reason: SHORT OF BREATH/WHEEZING Last Admin: 07/29/17 13:35 Dose: 1 amp Apixaban (Eliquis -) 5 mg PO BID [facility] Last Admin: 07/30/17 09:16 Dose: 5 mg Atorvastatin Calcium (Lipitor -) 20 mg PO HS [facility] Last Admin: 07/29/17 21:59 Dose: 20 mg Budesonide/Formoterol Fumarate (Symbicort 80/4.5mcg -) 2 puff IH BID [facility] Last Admin: 07/30/17 09:17 Dose: 2 puff Diltiazem HCl (Cardizem -) 30 mg PO Q6HPO [facility] Last Admin: 07/30/17 06:19 Dose: 30 mg Insulin Aspart (Novolog Vial Sliding Scale -) 1 vial SQ ACHS [facility] PRN Reason: Protocol Last Admin: 07/30/17 06:03 Dose: Not Given Metoprolol Tartrate (Lopressor Injection -) 5 mg IVPUSH Q4H PRN Last Admin: 07/25/17 07:28 Dose: 5 mg Metoprolol Tartrate (Lopressor -) 50 mg PO Q6HPO [facility] Pantoprazole Sodium (Protonix -) 40 mg PO DAILY [facility] Last Admin: 07/30/17 09:16 Dose: 40 mg Prednisone (Deltasone -) 40 mg PO DAILY [facility] Last Admin: 07/30/17 09:16 Dose: 40 mg - Objective Vital Signs: Vital Signs Temperature 98.0 F 07/30/17 10:00 Pulse Rate 96 H 07/30/17 10:00 Respiratory Rate 20 07/30/17 10:00 Blood Pressure 117/82 07/30/17 10:00 O2 Sat by Pulse Oximetry (%) 96 07/30/17 09:00 Constitutional: Yes: Well Nourished, Calm Eyes: Yes: WNL HENT: Yes: WNL Neck: Yes: WNL Cardiovascular: Yes: Tachycardia, Pulse Irregular, S1, S2 Gastrointestinal: Yes: Normal Bowel Sounds, Soft Extremities: Yes: WNL Edema: No Labs: CBC, BMP 07/30/17 08:20 07/30/17 08:20 Problem List - Problems (1) Atrial fibrillation Code(s): I48.91 - UNSPECIFIED ATRIAL FIBRILLATION Qualifiers: Atrial fibrillation type: paroxysmal Qualified Code(s): I48.0 - Paroxysmal atrial fibrillation (2) Influenza A Code(s): J10.1 - FLU DUE TO OTH IDENT INFLUENZA VIRUS W OTH RESP MANIFEST Assessment/Plan Problem List - Problems (1) Asthma with acute exacerbation Code(s): J45.901 - UNSPECIFIED ASTHMA WITH (ACUTE) EXACERBATION (2) COPD (chronic obstructive pulmonary disease) Code(s): J44.9 - CHRONIC OBSTRUCTIVE PULMONARY DISEASE, UNSPECIFIED (3) Chronic alcoholism Code(s): F10.20 - ALCOHOL DEPENDENCE, UNCOMPLICATED (4) Cocaine dependence Code(s): F14.20 - COCAINE DEPENDENCE, UNCOMPLICATED Assessment/Plan ACUTE BRONCHITIS INFLUENZA A RAPID AFIB PLAN: RATE CONTROL CARDIZEM DRIP EVER/LABA/LAMA/ICS STEROID TAPER O2 PRN DAILY PEAK FLOW DR COX
[2017-07-30 12:51] LABS: ACANTHOCYTES 0; ANISOCYTOSIS 0; HELMET CELLS 0; HOWELL-JOLLY BODIES 0; MACROCYTOSIS 0; OVALOCYTE 0; PLATELET ESTIMATE NORMAL; SICKELED CELLS 0; TARGET CELLS 0; TEAR DROP CELLS 0; TOXIC GRANULATION 0
[2017-07-30] MEDS ORDERED: AMIODARONE HCL INJECTION 150 MG in DEXTROSE 5%-WATER - 97 ML IVPB ONE ×2 (15:01→15:15)
[2017-07-30] MEDS: ATORVASTATIN CA 20 MG TABLET (FP) PO SCH (21:22)
[2017-07-31] MEDS: METOPROLOL TARTRATE 50 MG TABLET (FP) PO SCH ×2 (00:13→06:30)
[2017-07-31] MEDS: dilTIAZem HCL 30 MG TABLET (FP) PO SCH ×2 (00:13→06:30)
[2017-07-31] MEDS: INSULIN SLIDING SCALE (NOVOLOG) 1 VIAL SQ SCH ×2 (06:29→12:14)
[2017-07-31 07:49] LABS: HEMATOCRIT 35.7 % (35.4-49); HEMOGLOBIN 11.5 GM/dL (11.7-16.9); MCH 27.3 pg (25.7-33.7); MCHC 32.3 g/dl (32.0-35.9); MEAN CELL VOLUME 84.6 fl (80-96); MEAN PLT VOLUME 9.4 fl (7.5-11.1); PLATELET COUNT 200 K/MM3 (134-434); RBC 4.22 M/mm3 (4.00-5.60); RDW 14.8 % (11.9-15.9); WHITE BLOOD COUNT 20.4 K/mm3 (4.0-10.0)
[2017-07-31 08:05] LABS: ALBUMIN 2.3 g/dl (3.4-5.0); ANION GAP 6 (8-16); BLOOD UREA NITROGEN 35 mg/dL (7-18); CALCIUM 7.7 mg/dL (8.5-10.1); CHLORIDE 99 mmol/L (98-107); CO2 35 mmol/L (21-32); CREATININE 1.4 mg/dL (0.7-1.3); GLUCOSE,RANDOM 103 mg/dL (74-106); MAGNESIUM 2.7 mg/dL (1.8-2.4); POTASSIUM 4.5 mmol/L (3.5-5.1); SGOT/AST 14 U/L (15-37); SGPT/ALT 48 U/L (12-78); SODIUM 140 mmol/L (136-145)
[2017-07-31 08:08] LABS: ALK PHOS 52 U/L (45-117); BILIRUBIN,TOTAL 0.7 mg/dL (0.2-1.0); TOT PROT 4.7 g/dl (6.4-8.2)
--- NOTE | 2017-07-31 08:27 | PN ---
Physical Exam: SUBJECTIVE: Patient seen and examined OBJECTIVE: Vital Signs Period Temp Pulse Resp BP Sys/Vaz Pulse Ox Last 24 Hr 98.0 F-99.7 F 62-153 18-20 104-138/63-82 96-96 GENERAL: The patient is awake, alert, and fully oriented, in no acute distress. LUNGS: Mild end expiratory wheezing HEART: Irregular, S1, S2, no hepatosplenomegaly, no masses. EXTREMITIES: 2+ pulses, warm, well-perfused, no edema. NEUROLOGICAL: Cranial nerves II through XII grossly intact. Normal speech. Laboratory Results - last 24 hr 07/30/17 07/30/17 07/30/17 08:20 08:20 08:30 WBC 18.1 H RBC 4.60 Hgb 12.6 Hct 38.8 MCV 84.3 MCH 27.3 MCHC 32.3 RDW 14.5 Plt Count 230 MPV 8.9 Neutrophils % No Result Required. Neutrophils % (Manual) 88.0 H Band Neutrophils % 0.0 Lymphocytes % No Result Required. Lymphocytes % (Manual) 2.0 L Monocytes % (Manual) 2 L Eosinophils % (Manual) 0.0 Basophils % (Manual) 0.0 Myelocytes % (Man) 0 Metamyelocytes 1 Hypochromia 0 Toxic Granulation 0 Dohle Bodies 0 Platelet Estimate Normal Polychromasia 0 Poikilocytosis 0 Basophilic Stippling 0 Anisocytosis 0 Microcytosis 0 Macrocytosis 0 Spherocytes 0 Sickle Cells 0 Target Cells 0 Tear Drop Cells 0 Ovalocytes 0 Stomatocytes 0 Helmet Cells 0 [place] Bodies 0 [place] Rings 0 Adrian Cells 0 Acanthocytes (Spur) 0 Fragmented RBCs 0 Schistocytes 0 Sodium 137 Potassium 4.9 Chloride 96 L Carbon Dioxide 34 H Anion Gap 7 L BUN 33 H D Creatinine 1.4 H Creat Clearance w eGFR 50.25 POC Glucometer Random Glucose 175 H D Calcium 8.6 Magnesium 2.7 H Cancelled Total Bilirubin 0.8 D AST 24 D ALT 66 D Alkaline Phosphatase 62 D Total Protein 5.5 L Albumin 2.8 L 07/30/17 07/30/17 07/30/17 11:13 16:38 21:20 WBC RBC Hgb Hct MCV MCH MCHC RDW Plt Count MPV Neutrophils % Neutrophils % (Manual) Band Neutrophils % Lymphocytes % Lymphocytes % (Manual) Monocytes % (Manual) Eosinophils % (Manual) Basophils % (Manual) Myelocytes % (Man) Metamyelocytes Hypochromia Toxic Granulation Dohle Bodies Platelet Estimate Polychromasia Poikilocytosis Basophilic Stippling Anisocytosis Microcytosis Macrocytosis Spherocytes Sickle Cells Target Cells Tear Drop Cells Ovalocytes Stomatocytes Helmet Cells [place] Bodies [place] Rings Adrian Cells Acanthocytes (Spur) Fragmented RBCs Schistocytes Sodium Potassium Chloride Carbon Dioxide Anion Gap BUN Creatinine Creat Clearance w eGFR POC Glucometer 284 289 234 Random Glucose Calcium Magnesium Total Bilirubin AST ALT Alkaline Phosphatase Total Protein Albumin 07/31/17 07/31/17 07/31/17 05:05 05:05 05:30 WBC 20.4 H RBC 4.22 Hgb 11.5 L Hct 35.7 MCV 84.6 MCH 27.3 MCHC 32.3 RDW 14.8 Plt Count 200 MPV 9.4 Neutrophils % No Result Required. Neutrophils % (Manual) Band Neutrophils % Lymphocytes % No Result Required. Lymphocytes % (Manual) Monocytes % (Manual) Eosinophils % (Manual) Basophils % (Manual) Myelocytes % (Man) Metamyelocytes Hypochromia Toxic Granulation Dohle Bodies Platelet Estimate Polychromasia Poikilocytosis Basophilic Stippling Anisocytosis Microcytosis Macrocytosis Spherocytes Sickle Cells Target Cells Tear Drop Cells Ovalocytes Stomatocytes Helmet Cells [place] Bodies [place] Rings [place] Cells Acanthocytes (Spur) Fragmented RBCs Schistocytes Sodium 140 Potassium 4.5 Chloride 99 Carbon Dioxide 35 H Anion Gap 6 L BUN 35 H Creatinine 1.4 H Creat Clearance w eGFR 50.25 POC Glucometer 118 Random Glucose 103 D Calcium 7.7 L Magnesium 2.7 H Total Bilirubin 0.7 AST 14 L D ALT 48 D Alkaline Phosphatase 52 Total Protein 4.7 L Albumin 2.3 L Active Medications Generic Name Dose Route Start Last Admin Trade Name Freq PRN Reason Stop Dose Admin Albuterol Sulfate 1 amp 07/28/17 10:04 07/30/17 22:35 Ventolin 0.083% Nebulizer Soln - NEB 1 amp Q4H PRN Administration SHORT OF BREATH/WHEEZING Apixaban 5 mg 07/26/17 10:15 07/30/17 21:22 Eliquis - PO 5 mg BID [facility] Administration Atorvastatin Calcium 20 mg 07/25/17 22:00 07/30/17 21:22 Lipitor - PO 20 mg HS [facility] Administration Budesonide/Formoterol Fumarate 2 puff 07/25/17 13:24 07/30/17 21:22 Symbicort 80/4.5mcg - IH 2 puff BID [facility] Administration Diltiazem HCl 60 mg 07/30/17 18:00 07/31/17 06:30 Cardizem - PO 60 mg Q6HPO [facility] Administration Insulin Aspart 1 vial 07/23/17 16:30 07/31/17 06:29 Novolog Vial Sliding Scale - SQ Not Given ACHS [facility] Protocol Metoprolol Tartrate 5 mg 07/25/17 07:27 07/25/17 07:28 Lopressor Injection - IVPUSH 5 mg Q4H PRN Administration Metoprolol Tartrate 50 mg 07/30/17 12:00 07/31/17 06:30 Lopressor - PO 50 mg Q6HPO [facility] Administration Pantoprazole Sodium 40 mg 07/24/17 10:00 07/30/17 09:16 Protonix - PO 40 mg DAILY [facility] Administration Prednisone 40 mg 07/30/17 10:00 07/30/17 09:16 Deltasone - PO 40 mg DAILY [facility] Administration ASSESSMENT/PLAN: 71 year-old male with a PMH of asthma, ETOH/cocaine use, current smoker, homeless. Admitted for COPD exacerbation and mild ANGEL. Found to be in newly diagnosed atrial fibrillation with RVR and Influenza A positive. Newly diagnosed paroxysmal atrial fibrillation with RVR --HR in 80s over past 24 hours with stable BP --continue current regimen of metoprolol q6h and diltiazem q6h --continue Eliquis Asthma/COPD exacerbation --07/22 CT chest: mild COPD --serial CXRs unremarkable --minimal expiratory wheezing persists --continue levofloxacin --continue Symbicort, duonebs; continue to taper steroids --protonix for GI protection Influenza A --Tamiflu course complete ANGEL --Cr 1.4 on admission, peaked at 1.6 on 07/23, now 1.4 ETOH/cocaine use --no signs or symptoms of withdrawal FEN Fluids: PO intake adequate Electrolytes: replete as indicated Nutrition: regular diet DVT prophylaxis: on Eliquis Physical therapy evalaution Dispo: continues to require inpatient care. Visit type - Emergency Visit Emergency Visit: Yes ED Registration Date: 07/20/17 Care time: The patient presented to the Emergency Department on the above date and was hospitalized for further evaluation of their emergent condition. - New Patient This patient is new to me today: No - Critical Care Critical Care patient: No
[2017-07-31] MEDS ORDERED: predniSONE 10 MG TABLET (UD) PO SCH (10:00)
[2017-07-31] MEDS: BUDESONIDE/FORMETEROL FUMARATE 80/4.5 mcg INHALER IH SCH (10:19)
[2017-07-31] MEDS: PANTOPRAZOLE 40 MG TABLET (FP) PO SCH (10:25)
[2017-07-31] MEDS: APIXABAN 5 MG TABLET PO SCH (10:26)
--- NOTE | 2017-07-31 10:31 | PN ---
Progress Note, Physician History of Present Illness: Dyspnea resolved, denies chest pain, palpitations, orthopnea, spontaneously converted to sinus rhythm. - Current Medication List Current Medications: Active Medications Albuterol Sulfate (Ventolin 0.083% Nebulizer Soln -) 1 amp NEB Q4H PRN PRN Reason: SHORT OF BREATH/WHEEZING Last Admin: 07/30/17 22:35 Dose: 1 amp Apixaban (Eliquis -) 5 mg PO BID [facility] Last Admin: 07/31/17 10:26 Dose: 5 mg Atorvastatin Calcium (Lipitor -) 20 mg PO HS [facility] Last Admin: 07/30/17 21:22 Dose: 20 mg Budesonide/Formoterol Fumarate (Symbicort 80/4.5mcg -) 2 puff IH BID [facility] Last Admin: 07/30/17 21:22 Dose: 2 puff Diltiazem HCl (Cardizem -) 60 mg PO Q6HPO [facility] Last Admin: 07/31/17 06:30 Dose: 60 mg Insulin Aspart (Novolog Vial Sliding Scale -) 1 vial SQ ACHS [facility] PRN Reason: Protocol Last Admin: 07/31/17 06:29 Dose: Not Given Metoprolol Tartrate (Lopressor Injection -) 5 mg IVPUSH Q4H PRN Last Admin: 07/25/17 07:28 Dose: 5 mg Metoprolol Tartrate (Lopressor -) 50 mg PO Q6HPO [facility] Last Admin: 07/31/17 06:30 Dose: 50 mg Pantoprazole Sodium (Protonix -) 40 mg PO DAILY [facility] Last Admin: 07/31/17 10:25 Dose: 40 mg Prednisone (Deltasone -) 30 mg PO DAILY [facility] Stop: 08/01/17 10:01 Last Admin: 07/31/17 10:25 Dose: 30 mg - Objective Vital Signs: Vital Signs Temperature 98.8 F 07/31/17 06:00 Pulse Rate 62 07/31/17 06:00 Respiratory Rate 18 07/31/17 06:00 Blood Pressure 138/76 07/31/17 06:00 O2 Sat by Pulse Oximetry (%) 96 07/31/17 00:00 Constitutional: Yes: No Distress, Calm Neck: Yes: Supple Cardiovascular: Yes: Regular Rate and Rhythm, Murmur (2/6 SM) Respiratory: Yes: Regular, CTA Bilaterally Gastrointestinal: Yes: Normal Bowel Sounds, Soft Edema: No Labs: CBC, BMP 07/31/17 05:05 07/31/17 05:05 - ....Imaging EKG: Report Reviewed (Tele: PAF->SR) Problem List - Problems (1) Hyperlipidemia Code(s): E78.5 - HYPERLIPIDEMIA, UNSPECIFIED Qualifiers: Hyperlipidemia type: pure hypercholesterolemia Qualified Code(s): E78.00 - Pure hypercholesterolemia, unspecified; E78.0 - Pure hypercholesterolemia (2) Influenza A Code(s): J10.1 - FLU DUE TO OTH IDENT INFLUENZA VIRUS W OTH RESP MANIFEST (3) Asthma with acute exacerbation Code(s): J45.901 - UNSPECIFIED ASTHMA WITH (ACUTE) EXACERBATION Qualifiers: Asthma severity: mild Asthma persistence: intermittent Qualified Code(s) : J45.21 - Mild intermittent asthma with (acute) exacerbation (4) Atrial fibrillation Code(s): I48.91 - UNSPECIFIED ATRIAL FIBRILLATION Qualifiers: Atrial fibrillation type: paroxysmal Qualified Code(s): I48.0 - Paroxysmal atrial fibrillation (5) COPD (chronic obstructive pulmonary disease) Code(s): J44.9 - CHRONIC OBSTRUCTIVE PULMONARY DISEASE, UNSPECIFIED Qualifiers: COPD type: unspecified COPD Qualified Code(s): J44.9 - Chronic obstructive pulmonary disease, unspecified (6) Chronic alcoholism Code(s): F10.20 - ALCOHOL DEPENDENCE, UNCOMPLICATED Qualifiers: Substance use status: uncomplicated Qualified Code(s): F10.20 - Alcohol dependence, uncomplicated (7) Cocaine dependence Code(s): F14.20 - COCAINE DEPENDENCE, UNCOMPLICATED Qualifiers: Substance use status: uncomplicated Qualified Code(s): F14.20 - Cocaine dependence, uncomplicated (8) Chronic kidney disease Code(s): N18.9 - CHRONIC KIDNEY DISEASE, UNSPECIFIED Qualifiers: Chronic kidney disease stage: stage 2 (mild) Qualified Code(s): N18.2 - Chronic kidney disease, stage 2 (mild) Assessment/Plan 07/23/2017 Echo: Normal LV size with hyperkinetic LV fxn, mod-severe eccentric MR, normal biatrial sizes 1. Paroxysmal atrial fibrillation now in SR, [id number] score probably around 3 (age, HTN and DM) 2. History of hypertension - currently normotensive 3. Diabetes mellitus 4. Bronchial asthma with acute exacerbation/acute bronchitis 5. Polysubstance abuse including ETOH and cocaine 6. Influenza A 7. Hyperlipidemia 8. CKD PLAN: 1. Continue Eliquis 5 bid while in-house, he may not be an ideal long-term candidate in view of his social issues. 2. Change Lopressor 50 bid and Cardizem CD 120 qd, continue Lipitor 20 qd 3. Oral Steroid taper with GI protection, antibiotic coverage, BD, O2 as needed , PF and Tamiflu. 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 Counselling regarding polysubstance abuse
[2017-07-31 11:08] VITALS: BP 123/76; PULSE 72; TEMP 98.4
--- NOTE | 2017-07-31 11:55 | PN ---
Progress Note, Physician History of Present Illness: pulmonary alert,nad,-cp,-sob. currently in nsr - Current Medication List Current Medications: Active Medications Albuterol Sulfate (Ventolin 0.083% Nebulizer Soln -) 1 amp NEB Q4H PRN PRN Reason: SHORT OF BREATH/WHEEZING Last Admin: 07/30/17 22:35 Dose: 1 amp Apixaban (Eliquis -) 5 mg PO BID [facility] Last Admin: 07/31/17 10:26 Dose: 5 mg Atorvastatin Calcium (Lipitor -) 20 mg PO HS [facility] Last Admin: 07/30/17 21:22 Dose: 20 mg Budesonide/Formoterol Fumarate (Symbicort 80/4.5mcg -) 2 puff IH BID [facility] Last Admin: 07/30/17 21:22 Dose: 2 puff Diltiazem HCl (Cardizem Cd -) 120 mg PO DAILY [facility] Insulin Aspart (Novolog Vial Sliding Scale -) 1 vial SQ ACHS [facility] PRN Reason: Protocol Last Admin: 07/31/17 06:29 Dose: Not Given Metoprolol Tartrate (Lopressor Injection -) 5 mg IVPUSH Q4H PRN Last Admin: 07/25/17 07:28 Dose: 5 mg Metoprolol Tartrate (Lopressor -) 50 mg PO BID [facility] Pantoprazole Sodium (Protonix -) 40 mg PO DAILY [facility] Last Admin: 07/31/17 10:25 Dose: 40 mg Prednisone (Deltasone -) 30 mg PO DAILY [facility] Stop: 08/01/17 10:01 Last Admin: 07/31/17 10:25 Dose: 30 mg - Objective Vital Signs: Vital Signs Temperature 98.4 F 07/31/17 10:00 Pulse Rate 72 07/31/17 10:00 Respiratory Rate 18 07/31/17 10:00 Blood Pressure 123/76 07/31/17 10:00 O2 Sat by Pulse Oximetry (%) 99 07/31/17 09:00 Constitutional: Yes: Calm, Thin Eyes: Yes: WNL HENT: Yes: WNL Neck: Yes: WNL Cardiovascular: Yes: Regular Rate and Rhythm, S1, S2 Respiratory: Yes: CTA Bilaterally Gastrointestinal: Yes: Normal Bowel Sounds, Soft Extremities: Yes: WNL Edema: No Labs: CBC, BMP 07/31/17 05:07/31/17 05:05 Problem List - Problems (1) Atrial fibrillation Code(s): I48.91 - UNSPECIFIED ATRIAL FIBRILLATION Qualifiers: Atrial fibrillation type: paroxysmal Qualified Code(s): I48.0 - Paroxysmal atrial fibrillation (2) Influenza A Code(s): J10.1 - FLU DUE TO OTH IDENT INFLUENZA VIRUS W OTH RESP MANIFEST Assessment/Plan Problem List - Problems (1) Asthma with acute exacerbation Code(s): J45.901 - UNSPECIFIED ASTHMA WITH (ACUTE) EXACERBATION (2) COPD (chronic obstructive pulmonary disease) Code(s): J44.9 - CHRONIC OBSTRUCTIVE PULMONARY DISEASE, UNSPECIFIED (3) Chronic alcoholism Code(s): F10.20 - ALCOHOL DEPENDENCE, UNCOMPLICATED (4) Cocaine dependence Code(s): F14.20 - COCAINE DEPENDENCE, UNCOMPLICATED Assessment/Plan ACUTE BRONCHITIS INFLUENZA A RAPID AFIB PLAN: RATE CONTROL CARDIZEM ,LOPRESSOR EVER/LABA/LAMA/ICS STEROID TAPER O2 PRN DAILY PEAK FLOW DR COX
--- NOTE | 2017-07-31 13:22 | DS ---
Physical Exam: SUBJECTIVE: Patient seen and examined OBJECTIVE: Vital Signs Period Temp Pulse Resp BP Sys/Vaz Pulse Ox Last 24 Hr 98.4 F-99.7 F 62-153 18-19 104-138/63-76 96-99 PHYSICAL EXAM GENERAL: The patient is awake, alert, and fully oriented, in no acute distress. HEAD: Normal with no signs of trauma. EYES: PERRL, extraocular movements intact, sclera anicteric, conjunctiva clear. ENT: Ears normal, nares patent, oropharynx clear without exudates, moist mucous membranes. NECK: Trachea midline, full range of motion, supple. LUNGS: Breath sounds equal, clear to auscultation bilaterally, no wheezes, no crackles, no accessory muscle use. HEART: Regular rate and rhythm, S1, S2 without murmur, rub or gallop. ABDOMEN: Soft, nontender, nondistended, normoactive bowel sounds, no guarding, no rebound, no hepatosplenomegaly, no masses. EXTREMITIES: 2+ pulses, warm, well-perfused, no edema. NEUROLOGICAL: Cranial nerves II through XII grossly intact. Normal speech, gait not observed. PSYCH: Normal mood, normal affect. SKIN: Warm, dry, normal turgor, no rashes or lesions noted. LABS Laboratory Results - last 24 hr 07/30/17 07/30/17 07/31/17 16:38 21:20 05:05 WBC 20.4 H RBC 4.22 Hgb 11.5 L Hct 35.7 MCV 84.6 MCH 27.3 MCHC 32.3 RDW 14.8 Plt Count 200 MPV 9.4 Neutrophils % No Result Required. Lymphocytes % No Result Required. Sodium Potassium Chloride Carbon Dioxide Anion Gap BUN Creatinine Creat Clearance w eGFR POC Glucometer 289 234 Random Glucose Calcium Magnesium Total Bilirubin AST ALT Alkaline Phosphatase Total Protein Albumin 07/31/17 07/31/17 07/31/17 05:05 05:30 11:36 WBC RBC Hgb Hct MCV MCH MCHC RDW Plt Count MPV Neutrophils % Lymphocytes % Sodium 140 Potassium 4.5 Chloride 99 Carbon Dioxide 35 H Anion Gap 6 L BUN 35 H Creatinine 1.4 H Creat Clearance w eGFR 50.25 POC Glucometer 118 213 Random Glucose 103 D Calcium 7.7 L Magnesium 2.7 H Total Bilirubin 0.7 AST 14 L D ALT 48 D Alkaline Phosphatase 52 Total Protein 4.7 L Albumin 2.3 L HOSPITAL COURSE: Date of Admission:07/20/17 Date of Discharge: 07/31/17 Minutes to complete discharge: 35 Discharge Summary Reason For Visit: ASHTMA WITH ACUTE EXACERBATION Current Active Problems Asthma with acute exacerbation (Acute) Atrial fibrillation (Acute) Chronic kidney disease (Acute) Hyperlipidemia (Acute) Influenza A (Acute) Condition: Stable - Instructions Referrals: Jaycob Wilcox MD [Staff Physician] - Disposition: HOME - Home Medications Comprehensive Discharge Medication List: Ambulatory Orders Budesonide/Formeterol Fumarate [SYMBICORT 80/4.5mcg -] 1 inh PO BID 10/24/13 Tiotropium Central [Spiriva] 1 inh PO DAILY 10/24/13 Acetaminophen [Tylenol .Regular Strength -] 650 mg PO QID PRN #60 tablet Albuterol Sulfate Inhaler - [Ventolin HFA Inhaler -] 2 inh IH Q4H PRN #1 inh Folic Acid 0.8 mg PO DAILY #30 tablet 10/28/13 Guaifenesin Dm [Robitussin Dm -] 10 ml PO Q6H PRN #1 cup 10/28/13 Mag Hydrox/Al Hydrox/Simeth [Mylanta Oral Suspension -] 30 ml PO Q6H PRN #1 cup 10/28/13 Montelukast Na [Singulair -] 10 mg PO HS #30 tablet 10/28/13 Multivitamin [Animal Chews] 1 each PO DAILY #30 tab.chew 10/28/13 Nicotine Patch [Nicoderm Patch -] 14 mg TD DAILY #30 patch 10/28/13 Thiamine HCl [Vitamin B1 -] 100 mg PO HS #30 tablet 10/28/13 Apixaban [Eliquis -] 5 mg PO BID #60 tablet 07/31/17 Diltiazem Cd [Cardizem Cd -] 120 mg PO DAILY #30 cap.cd.24h 07/31/17 Metoprolol Tartrate [Lopressor -] 50 mg PO BID #60 tablet 07/31/17 Prednisone [Deltasone -] See Taper PO ASDIR #9 tablet 07/31/17 - Discharge Referral Referred to [facility] No Physician Referral: Jay Jay Damian MD ([facility])
--- NOTE | 2017-07-31 13:26 | DS ---
Physical Exam: SUBJECTIVE: Patient seen and examined OBJECTIVE: Vital Signs Period Temp Pulse Resp BP Sys/Vaz Pulse Ox Last 24 Hr 98.4 F-99.7 F 62-153 18-19 104-138/63-76 96-99 PHYSICAL EXAM GENERAL: The patient is awake, alert, and fully oriented, in no acute distress. LUNGS: Mild end expiratory wheezing HEART: Irregular, S1, S2, no hepatosplenomegaly, no masses. EXTREMITIES: 2+ pulses, warm, well-perfused, no edema. NEUROLOGICAL: Cranial nerves II through XII grossly intact. Normal speech. LABS Laboratory Results - last 24 hr 07/30/17 07/30/17 07/31/17 16:38 21:20 05:05 WBC 20.4 H RBC 4.22 Hgb 11.5 L Hct 35.7 MCV 84.6 MCH 27.3 MCHC 32.3 RDW 14.8 Plt Count 200 MPV 9.4 Neutrophils % No Result Required. Lymphocytes % No Result Required. Sodium Potassium Chloride Carbon Dioxide Anion Gap BUN Creatinine Creat Clearance w eGFR POC Glucometer 289 234 Random Glucose Calcium Magnesium Total Bilirubin AST ALT Alkaline Phosphatase Total Protein Albumin 07/31/17 07/31/17 07/31/17 05:05 05:30 11:36 WBC RBC Hgb Hct MCV MCH MCHC RDW Plt Count MPV Neutrophils % Lymphocytes % Sodium 140 Potassium 4.5 Chloride 99 Carbon Dioxide 35 H Anion Gap 6 L BUN 35 H Creatinine 1.4 H Creat Clearance w eGFR 50.25 POC Glucometer 118 213 Random Glucose 103 D Calcium 7.7 L Magnesium 2.7 H Total Bilirubin 0.7 AST 14 L D ALT 48 D Alkaline Phosphatase 52 Total Protein 4.7 L Albumin 2.3 L HOSPITAL COURSE: Date of Admission:07/20/17 Date of Discharge: 07/31/17 71 year-old male with a PMH of asthma, ETOH/cocaine use, current smoker, homeless. Admitted for COPD exacerbation and mild ANGEL. Found to be in newly diagnosed atrial fibrillation with RVR and Influenza A positive. Newly diagnosed paroxysmal atrial fibrillation with RVR --HR in 80s over past 24 hours with stable BP --will discharge on diltiazem CD 120 daily, and metoprolol 50mg BID --continue Eliquis; verified with pharmacy patient has coverage Asthma/COPD exacerbation --07/22 CT chest: mild COPD --serial CXRs unremarkable --minimal expiratory wheezing persists --off antibiotics --continue Symbicort, duonebs; continue to taper steroids --protonix for GI protection Influenza A --Tamiflu course complete ANGEL --Cr 1.4 on admission, peaked at 1.6 on 07/23, now 1.4 ETOH/cocaine use --no signs or symptoms of withdrawal Minutes to complete discharge: 35 Discharge Summary Reason For Visit: ASHTMA WITH ACUTE EXACERBATION Current Active Problems Asthma with acute exacerbation (Acute) Atrial fibrillation (Acute) Chronic kidney disease (Acute) Hyperlipidemia (Acute) Influenza A (Acute) Condition: Improved - Instructions Diet, Activity, Other Instructions: Four new prescriptions have been sent to your pharmacy: 1. Eliquis 2. Metoprolol 3. Diltiazem 4. Prednisone Take these medications as directed. You will need close follow up after your discharge from the hospital. If you choose, you can be seen at the [facility] by Dr. Wilcox and her staff. The contact information is enclosed. Please make an appointment to see a health care provider within one week of your discharge. Return to the emergency department for any new or worsening symptoms. Referrals: Jaycob Wilcox MD [Staff Physician] - 1 Week Disposition: HOME - Home Medications Comprehensive Discharge Medication List: Ambulatory Orders Budesonide/Formeterol Fumarate [SYMBICORT 80/4.5mcg -] 1 inh PO BID 10/24/13 Tiotropium Molina [Spiriva] 1 inh PO DAILY 10/24/13 Acetaminophen [Tylenol .Regular Strength -] 650 mg PO QID PRN #60 tablet Albuterol Sulfate Inhaler - [Ventolin HFA Inhaler -] 2 inh IH Q4H PRN #1 inh Folic Acid 0.8 mg PO DAILY #30 tablet 10/28/13 Guaifenesin Dm [Robitussin Dm -] 10 ml PO Q6H PRN #1 cup 10/28/13 Mag Hydrox/Al Hydrox/Simeth [Mylanta Oral Suspension -] 30 ml PO Q6H PRN #1 cup 10/28/13 Montelukast Na [Singulair -] 10 mg PO HS #30 tablet 10/28/13 Multivitamin [Animal Chews] 1 each PO DAILY #30 tab.chew 10/28/13 Nicotine Patch [Nicoderm Patch -] 14 mg TD DAILY #30 patch 10/28/13 Thiamine HCl [Vitamin B1 -] 100 mg PO HS #30 tablet 10/28/13 Apixaban [Eliquis -] 5 mg PO BID #60 tablet 07/31/17 Diltiazem Cd [Cardizem Cd -] 120 mg PO DAILY #30 cap.cd.24h 07/31/17 Metoprolol Tartrate [Lopressor -] 50 mg PO BID #60 tablet 07/31/17 Prednisone [Deltasone -] See Taper PO ASDIR #9 tablet 07/31/17 This patient is new to me today: No Emergency Visit: Yes ED Registration Date: 07/20/17 Care time: The patient presented to the Emergency Department on the above date and was hospitalized for further evaluation of their emergent condition. Critical Care patient: No - Discharge Referral Referred to [facility] Med P.C.: No
[2017-07-31 13:29] LABS: ANISOCYTOSIS 1+; MACROCYTOSIS 0; PLATELET ESTIMATE NORMAL; TARGET CELLS 2+
[2017-07-31] MEDS ORDERED: METOPROLOL TARTRATE 50 MG TABLET (FP) PO SCH (22:00)
--- NOTE | 2017-08-03 11:22 | EKG ---
Test Reason : Blood Pressure : / mmHG Vent. Rate : 109 BPM Atrial Rate : 174 BPM P-R Int : 000 ms QRS Dur : 082 ms QT Int : 294 ms P-R-T Axes : 000 056 -18 degrees QTc Int : 395 ms ATRIAL FIBRILLATION WITH RAPID VENTRICULAR RESPONSE ABNORMAL QRS-T ANGLE, CONSIDER PRIMARY T WAVE ABNORMALITY ABNORMAL ECG WHEN COMPARED WITH ECG OF 25-JUL-2017 09:59, NO SIGNIFICANT CHANGE WAS FOUND Confirmed by PRIYANK JUDD, ANUJA ([id number] on 08/03/2017 11:21:44 AM Referred By: Confirmed By:ANUJA YOST MD
== END 2017-07-31 15:19 | disposition home or self-care (01) | DRG 191 ==
LOC: JER 09:54 → JERBED 15:19 → J6S 18:25 → J4S 07-23 14:28 → J4W 07-25 18:22
PROVIDERS: ADMIT Internal Medicine; ATTEND Nurse Practitioner Acute Care
DX: J44.0 Chronic obstructive pulmonary disease with (acute) lower respiratory infection (principal); J45.21 Mild intermittent asthma with (acute) exacerbation; N17.9 Acute kidney failure, unspecified; F14.20 Cocaine dependence, uncomplicated; J44.1 Chronic obstructive pulmonary disease with (acute) exacerbation; E78.5 Hyperlipidemia, unspecified; J10.1 Influenza due to other identified influenza virus with other respiratory manifestations; J20.9 Acute bronchitis, unspecified; F10.20 Alcohol dependence, uncomplicated; I12.9 Hypertensive chronic kidney disease with stage 1 through stage 4 chronic kidney disease, or unspecified chronic kidney disease; E11.22 Type 2 diabetes mellitus with diabetic chronic kidney disease; I48.0 Paroxysmal atrial fibrillation; N18.2 Chronic kidney disease, stage 2 (mild)
CPT/HCPCS: 36415; 71010-TC; 71020-TC; 71250-TC; 80053; 80061; 83036; 83721; 83735; 84443; 84484; 85025; 85027; 85730; 87040; 87804; 93005; 93010; 93306-TC; 94150; 94640; 94761; 97116-GP; 97161-GP; 99283-25; J1644